=== PATIENT | female | born 1945 | race Hispanic/Latino ===

== ENCOUNTER 2017-11-03 15:05 | Inpatient (IN) | payer MEDICARE ==
[2017-11-03 17:25] LABS: BASO # 0.1 K/uL (0.0-0.2); BASO % 1.2 % (0.0-2.0); EOS # 0.3 K/uL (0.0-0.7); EOS % 2.4 % (0.0-4.0); HEMOGLOBIN 18.9 g/dL (11.0-16.0); LYMPH # 1.8 K/uL (1.0-4.3); LYMPH % 15.2 % (20.0-40.0); MEAN CELL VOLUME 93.8 fL (81.0-99.0); MEAN CORPUSCULAR HEMOGLOBIN 31.9 pg (27.0-31.0); MEAN PLATELET VOLUME 8.8 fL (7.2-11.7); MONO # 0.8 K/uL (0.0-0.8); MONO % 6.3 % (0.0-10.0); NEUT % 74.9 % (50.0-75.0); NRBC % 0.3 % (0.0-2.0); RBC 5.93 Mil/uL (3.80-5.20); RED CELL DISTRIBUTION WIDTH 14.4 % (11.5-14.5)
[2017-11-03 17:33] LABS: INR 1.1; PROTHROMBIN TIME 13.1 SECONDS (9.7-12.2)
[2017-11-03 17:37] LABS: ALB/GLOB RATIO 1.1 (1.0-2.1); ALT/SGPT 20 U/L (9-52); AST/SGOT 18 U/L (14-36); BLOOD UREA NITROGEN 24 mg/dL (7-17); CALCIUM 9.9 mg/dl (8.6-10.4); GFR AFRICAN-AMERICAN > 60; GFR NON-AFRICAN AMERICAN > 60
[2017-11-03] MEDS ORDERED: Heparin25000 units/250ml 1/2NS 25,000 UNITS/250 ML BAG IV ONE ×2 (17:54→18:15)
[2017-11-03] MEDS ORDERED: Iodixanol 320 mg/ml 150 ml Bottle IV ONE (18:18)
--- NOTE | 2017-11-03 18:36 | CP.PCM.HP ---
History of Present Illness - History of Present Illness History of Present Illness: CC:left foot pain 72 year old female with a past medical history of thrombocytosis and hypertension who comes in after being referred from Dr. Pierre. The patient reports left foot gangrene that was recently discovered in her doctor's office. The patient states that she has had an ulcer on the foot for the past two years that was caused by her not wearing her compression stockings and her bare foot rubbing against the shoe and causing a break in the skin. The patient states she tried to treat it with Neosporin three times a day but it didn't improve the symptoms. The patient reports pain in conjunction with the gangrene. She recently began taking Oxycodone which has improved the pain. She denies any chest pain, headaches, shortness of breath, nausea, vomiting, changes in vision, polyuria, polydipsia, syncopal episodes, palpitations, or any other complaints. Fishing Manager: Dr. Emmanuel PMD: In between at the moment Past medical history: Thrombocytosis, hypertension Medications: Goes to [facility] in [place]. Follow up and confirm. Past surgical history: Tonsillectomy, Right eye cataract Allergies: Denies Social: Social drinker. Henrry smoking or illicit drug use. Lives alone Full Code Has a living will. Present on Admission - Present on Admission Any Indicators Present on Admission: No Review of Systems - Constitutional Constitutional: absent: Chills, Daytime Sleepiness, Headache, Snoring, Weakness - EENT Eyes: absent: Blurred Vision, Discharge, Dry Eye, Sees Flashes, Loss of Vision Ears: absent: Ear Discharge, Dizziness Nose/Mouth/Throat: absent: Nasal Congestion, Nasal Discharge, Nose Pain, Dysphagia, Halitosis - Cardiovascular Cardiovascular: absent: Chest Pain, Claudication, Irregular Heart Rhythm, Pain Radiating to Arm/Neck/Jaw, Leg Edema, Paroxysmal Nocturnal Dyspnea, Slow Heart Rate, Syncope - Respiratory Respiratory: absent: Dyspnea, Hemoptysis, Stridor - Gastrointestinal Gastrointestinal: absent: Belching, Change in Stool Character, Cramping, Dyspepsia, Excessive Flatus, Fecal Incontinence, Loose Stools, Melena, Nausea, Vomiting, Other - Genitourinary Genitourinary: absent: Change in Urinary Stream, Difficulty Urinating, Nocturia , Urinary Urgency, Bladder Distension - Musculoskeletal Musculoskeletal: absent: Arthralgias, Joint Swelling, Limited Range of Motion, Muscle Weakness, Myalgias, Stiffness, Tingling - Integumentary Integumentary: Skin Pain, Sores, Wounds. absent: Bleeding Lesions, Changing Lesions, Lesions, Pruritus, Striae, Swelling Additional comments: Lower left foot gangrene. - Neurological Neurological: absent: Abnormal Hearing, Burning Sensations, Dizziness, Numbness , Lack of Coordination, Radicular Pain, Tremor, Vertigo - Psychiatric Psychiatric: absent: Abnormal Sleep Pattern, Behavioral Changes, Hopelessness, Panic Attacks, Tactile Hallucinations - Endocrine Endocrine: absent: Change in Body Appearance, Increase in Ring/Shoe/Hat Size, Polydipsia, Polyphagia, Polyuria - Hematologic/Lymphatic Additional comments: lower left extremiety gangrene extending from the great hallux to the fourth toe. Past Patient History - Infectious Disease Hx of Infectious Diseases: None - Past Social History Smoking Status: Never Smoked - CARDIAC Hx Hypertension: Yes - HEMATOLOGICAL/ONCOLOGICAL Other/Comment: Hx of elevated platelet count. - PSYCHIATRIC Hx Substance Use: No - SURGICAL HISTORY Hx Surgeries: Yes Hx Cataract Extraction: Yes Hx Tonsillectomy: Yes - ANESTHESIA Hx Anesthesia: Yes Hx Anesthesia Reactions: No Hx Malignant Hyperthermia: No Meds Allergies/Adverse Reactions: Allergies Allergy/AdvReac Type Severity Reaction Status Date / Time No Known Allergies Allergy Verified 11/03/17 15:26 Physical Exam - Head Exam Head Exam: ATRAUMATIC, NORMAL INSPECTION, NORMOCEPHALIC - Eye Exam Eye Exam: EOMI, Normal appearance, PERRL. absent: Periorbital tenderness Pupil Exam: NORMAL ACCOMODATION, PERRL. absent: Irregular, Unequal - ENT Exam ENT Exam: Mucous Membranes Moist, Normal Exam, Normal Oropharynx. absent: TM's Normal Bilaterally - Neck Exam Neck exam: Positive for: Normal Inspection. Negative for: Lymphadenopathy, Thyromegaly - Respiratory Exam Respiratory Exam: Clear to Auscultation Bilateral, NORMAL BREATHING PATTERN. absent: Chest Wall Tenderness, Prolonged Expiratory Phase, Respiratory Distress - Cardiovascular Exam Cardiovascular Exam: REGULAR RHYTHM, RRR, +S1, +S2. absent: Rubs - GI/Abdominal Exam GI & Abdominal Exam: Normal Bowel Sounds, Soft. absent: Distended, Hypoactive Bowel Sounds, Organomegaly, Tenderness - Extremities Exam Extremities exam: Negative for: joint swelling, pedal edema - Neurological Exam Neurological exam: Alert, CN II-XII Intact, Oriented x3 - Psychiatric Exam Psychiatric exam: Normal Affect, Normal Mood - Skin Additional comments: lower left extremiety gangrene extending from the great hallux to the fourth toe. Results - Vital Signs Recent Vital Signs: Last Vital Signs Temp 97.7 F 11/03/17 18:01 Pulse 78 11/03/17 18:01 Resp 18 11/03/17 18:01 BP 225/108 H 11/03/17 17:45 Pulse Ox 98 11/03/17 18:01 - Labs Result Diagrams: 11/03/17 17:21 11/03/17 17:21 Labs: Laboratory Results - last 24 hr 11/03/17 11/03/17 11/03/17 17:21 17:21 17:21 WBC 12.0 H RBC 5.93 H Hgb 18.9 H Hct 55.6 H MCV 93.8 MCH 31.9 H MCHC 34.0 RDW 14.4 Plt Count 850 H MPV 8.8 Neut % (Auto) 74.9 Lymph % (Auto) 15.2 L [place] % (Auto) 6.3 Eos % (Auto) 2.4 Baso % (Auto) 1.2 Neut # (Auto) 9.0 H Lymph # (Auto) 1.8 [place] # (Auto) 0.8 Eos # (Auto) 0.3 Baso # (Auto) 0.1 Differential Comment PT 13.1 H INR 1.1 APTT 37 H Sodium 139 Potassium 3.6 Chloride 98 Carbon Dioxide 30 Anion Gap 14 BUN 24 H Creatinine 0.9 Est GFR ( Amer) > 60 Est GFR (Non-Af Amer) > 60 Random Glucose 98 Calcium 9.9 Total Bilirubin 1.1 AST 18 ALT 20 Alkaline Phosphatase 81 Total Protein 7.5 Albumin 4.0 Globulin 3.6 Albumin/Globulin Ratio 1.1 Assessment & Plan - Assessment and Plan (Free Text) Assessment: 72 year old female with a past medical history of thrombocytosis and hypertension who is admitted for gangrene of the left foot. Plan: 1.Gangrene of the left foot -Patient seen at Dr. Pierre's and Cholo's office earlier today were it was cleaned and soaked and re-bandaged. She was referred to the emergency room due to the severity of her foot. -Lower extremity duplex showed occlusion of the left popliteal and anterior tibial -Heparin Bolus given in the emergency department. Heparin drip started in the emergency department afterwards. -Dr. Pierre consulted. Will f/u with rec's 2.Hypertensive urgency -BP upon admission 225/108. -Patient normal range of SBP is in the 160's. Patient is asymptomatic upon examination. -Clonindine .2mg given in the Emergency room. -Cardizem 30mg q8 started -Holding parameters: BP less than 140 -Heart healthy diet (2g Na restriction) 3.Thrombocytosis -850 upon admission. -Consider Data Programmer consult. Patient states she hasn't been worked up in the past for the cause. PPX -Pepcid 20mg BID
--- NOTE | 2017-11-03 19:13 | C.PDOC ---
History Of Present Illness 72 y/o female, with history of HTN and thrombocytosis, presents to the ER after being referred by for admission of left foot ulcer. Patient has a non-healing ulcer over the past several weeks.Patient has good compliance with his outpatient medications. Patient has an elevated blood pressure in the ER. She denies having pain, fever, and other complaints. Chief Complaint (Nursing): Abnormal Skin Integrity History Per: Patient History/Exam Limitations: no limitations Onset/Duration Of Symptoms: Days Current Symptoms Are (Timing): Still Present Severity: Moderate Past Medical History Reviewed: Historical Data, Nursing Documentation, Vital Signs Vital Signs: Last Vital Signs Temp 97.8 F 11/03/17 23:15 Pulse 57 L 11/04/17 04:00 Resp 20 11/03/17 23:15 BP 162/90 H 11/04/17 00:40 Pulse Ox 95 11/03/17 23:15 - Medical History PMH: HTN Surgical History: Tonsillectomy Family History: States: No Known Family Hx - Social History Hx Alcohol Use: No Hx Substance Use: No - Immunization History Hx Tetanus Toxoid Vaccination: No Hx Influenza Vaccination: No Hx Pneumococcal Vaccination: No Review Of Systems Except As Marked, All Systems Reviewed And Found Negative. Constitutional: Negative for: Fever, Chills Skin: Positive for: Other (non-healing ulcer in left foot) Physical Exam - Physical Exam Appears: Non-toxic, No Acute Distress Skin: Normal Color, Warm, Other (LLE:foot and ankle wrapped with chronically venous stasis changes bilaterally) Head: Atraumatic, Normacephalic Eye(s): bilateral: Normal Inspection Nose: Normal Oral Mucosa: Moist Neck: Supple Chest: Symmetrical Cardiovascular: Rhythm Regular Respiratory: Normal Breath Sounds, No Accessory Muscle Use, No Rales, No Rhonchi , No Wheezing Extremity: Normal ROM, Other Neurological/Psych: Oriented x3, Normal Speech, Normal Motor, Normal Sensation ED Course And Treatment - Laboratory Results Result Diagrams: 11/03/17 17:21 11/03/17 17:21 O2 Sat by Pulse Oximetry: 95 (RA) Pulse Ox Interpretation: Normal Progress Note: Case discussed with who is aware of the US report. He reccomends that the patient be given Heparin therapy and be admitted.Case also discussed with who reviewed case including HTN treatment. Patient to be given PO meds only to maximize blood flow to lower extremities. 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 I have reviewed the chart and agree that the record accurately reflects my personal performance of the history, physical exam, medical decision making, and the department course for this patient. I have also personally directed, reviewed, and agree with the discharge instructions and disposition.
--- NOTE | 2017-11-03 21:12 | CT ---
EXAM: CT Angiography Abdomen and Pelvis With Runoff to the Lower Extremities With Intravenous Contrast EXAM DATE/TIME: Exam ordered 11/03/2017 3:49 PM CLINICAL HISTORY: 72 years old, female; Signs and symptoms; Other: Left foot gangrene TECHNIQUE: Axial computed tomographic angiography images of the abdomen, pelvis and lower extremities with intravenous contrast using CT angiography protocol. All CT scans at this facility use one or more dose reduction techniques, viz.: automated exposure control; ma/kV adjustment per patient size (including targeted exams where dose is matched to indication; i.e. head); or iterative reconstruction technique. MIP reconstructed images were created and reviewed. Coronal and sagittal reformatted images were created and reviewed. CONTRAST: 150 mL of visipaque 300 administered intravenously. COMPARISON: No relevant prior studies available. FINDINGS: Lower thorax: A 1.2 cm pleural-based nodule is noted in the posterior basal segment of the right lower lobe (series 2 image 7). Thin pleural-based reticular opacities in the left lower lobe suggests scar. There is a granuloma in the left lower lobe (series 2 image 17). The heart is mildly enlarged. VASCULATURE: Aorta: There is aneurysmal dilatation of the infrarenal abdominal aorta with a maximum diameter of 2.4 cm.. Atherosclerotic changes noted of the abdominal aorta. No dissection. Celiac trunk and mesenteric arteries: No acute findings. No occlusion or significant stenosis. Renal arteries: Calcified plaque is noted at the origin of the renal arteries bilaterally. No occlusion or significant stenosis. Right iliac arteries: The left and right common iliac arteries measure 1.3 cm and 1.4 cm respectively in maximum diameter. No occlusion or significant stenosis. Right femoral/popliteal arteries: Atherosclerotic changes noted of the right superficial femoral artery. Distally there is a 50-60% stenosis present. 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 The popliteal occludes at the level of the knee. Right calf/foot arteries: The right anterior tibial artery occludes at the origin. The right tibioperoneal trunk is a markedly narrowed vessel that I recanalizes via geniculate collaterals. The peroneal artery occludes mid calf. The posterior tibial artery is seen as a threadlike vessel which occludes in the proximal lower leg and appears to reconstitute in the region of the mid calf crosses the ankle. Left iliac arteries: No acute findings. No occlusion or significant stenosis. Left femoral/popliteal arteries: Approximate 30% narrowing is noted of the left common femoral artery. Atherosclerotic changes noted of the left superficial femoral artery. Multifocal short segment stenoses are noted in the proximal one half of the left SFA.. Mid calf there is a high grade stenosis estimated to be approximately 50% of the superficial femoral artery. A second stenosis distally estimated to be at least to 80% is noted.. The popliteal artery is occluded on the left. Left calf/foot arteries: The SAMANTHA is occluded. The posterior tibial artery recanalizes via collaterals. It terminates at the level of the ankle. Small arterial collaterals are noted on the dorsum of the ankle and foot. Other arteries: Calcified plaque is noted at the origin of the celiac axis and superior mesenteric artery. ABDOMEN: Liver: the liver measures 18.5 cm in craniocaudal span. Gallbladder and bile ducts: Unremarkable. No calcified stones. No ductal dilation. Pancreas: Unremarkable. No ductal dilation. No mass. Spleen: The spleen measures 12.2 cm in craniocaudal span . A peripheral wedge-shaped area of low density is noted within the spleen inferiorly. Adrenals: Unremarkable. No mass. Kidneys and ureters: No mass. No hydronephrosis. Stomach and bowel: There are scattered colonic diverticula. No obstruction. No mucosal thickening. Appendix: No findings to suggest acute appendicitis. PELVIS: Bladder: Unremarkable. No mass. Reproductive: Unremarkable as visualized. ABDOMEN, PELVIS and LOWER EXTREMITIES: Intraperitoneal space: Unremarkable. No significant fluid collection. No free air. Bones/joints: Degenerative changes are noted of both patellofemoral joints. Degenerative changes are noted of both hips. Degenerative changes are noted of the thoracolumbar spine. No acute fracture. No dislocation. Soft tissues: Marked soft tissue edema is noted in the right lower leg. Large collateral vessels are noted within the subcutaneous f one-vessel runoff at of both lower extremities, left greater than right. There is mild anasarca.There is a small umbilical hernia containing fat. Lymph nodes: Unremarkable. No enlarged lymph nodes. IMPRESSION: 1. Moderate atherosclerotic disease of the right leg with 50-60% stenosis of the distal SFA. The popliteal artery occludes behind the knee. Intermittent reconstitution of the peroneal artery and posterior tibial artery with the posterior tibial artery crossing the ankle 2. Multifocal short segment stenoses of the left SFA with occlusion of the distal SFA. Intermittent reconstitution of the posterior tibial artery mid calf to the level of the ankle. Small arterial collaterals noted on the dorsum of the foot. 3. Mild splenomegaly with splenic infarct. 4. Scattered colonic diverticula. 5. Pleural-based nodular density in the right lower lobe. For low-risk or high-risk patients consider a follow-up chest CT at 3 months. If unchanged consider an additional follow-up CT at 18-24 months. Alternatively (or additionally) PET/CT or tissue sampling could be performed. 6. Hepatomegaly
--- NOTE | 2017-11-03 21:35 | CP.PCM.CON ---
History of Present Illness - History of Present Illness History of Present Illness: Vascular surgery consult note for Dr. Abdifatah Khan, PGY-1 Pt S & E at bedside. 72F w/PMH sig for HTN, thrombocytosis consulted for Left lower extremity occlusion. Pt reports having chronic, recurrent wounds of left foot x 2 years, was being managed by podiatry without resolution. Pt recommended to see vascular surgeon - Dr Rosio méndez/fidencio today for necrotic wound of left distal foot with recommendations for hospitalization and imaging evaluations. Pt reports chronic, intermittent, non radiating left foot pain, worsened by walking, alleviated by pain medication. Denies numbness/tingling of extremities, weakness of foot, F & C, N & V, changes in bowel or bladder habits, other complaints. Pt's cousin at bedside reports that pt is non compliant with HTN medication. PMH: HTN, thrombocytosis PSH: Tonsillectomy (age 4), R eye cataract sx (10/2017) All:NKDA SH: Admits to ETOH use- 2 glasses of wine 4-5x weekly, denies tobacco use, illicit drug use; ambulates with cane Out pt podiatry- Dr. Emmanuel, Dr. tucker Outpatient analyst programmer: Dr. Krishna Review of Systems - Review of Systems All systems: reviewed and no additional remarkable complaints except - Constitutional Constitutional: absent: Chills, Fever, Headache - EENT Eyes: absent: Change in Vision Ears: absent: Dizziness Nose/Mouth/Throat: absent: Sore Throat - Cardiovascular Cardiovascular: absent: Chest Pain, Leg Edema, Palpitations - Respiratory Respiratory: absent: Cough - Gastrointestinal Gastrointestinal: absent: Abdominal Pain, Constipation, Diarrhea, Nausea, Vomiting - Genitourinary Genitourinary: absent: Change in Urinary Stream - Musculoskeletal Musculoskeletal: absent: Muscle Weakness, Numbness, Radiating Pain into Limb, Tingling - Integumentary Integumentary: Non-Healing Lesions (left foot) - Neurological Neurological: absent: Dizziness, Weakness - Psychiatric Psychiatric: absent: Change in Appetite Past Patient History - Infectious Disease Hx of Infectious Diseases: None - Past Social History Smoking Status: Never Smoked - CARDIAC Hx Hypertension: Yes - HEMATOLOGICAL/ONCOLOGICAL Other/Comment: Hx of elevated platelet count. - PSYCHIATRIC Hx Substance Use: No - SURGICAL HISTORY Hx Tonsillectomy: Yes - ANESTHESIA Hx Anesthesia: Yes Hx Anesthesia Reactions: No Hx Malignant Hyperthermia: No Meds Allergies/Adverse Reactions: Allergies Allergy/AdvReac Type Severity Reaction Status Date / Time No Known Allergies Allergy Verified 11/03/17 15:26 - Medications Medications: Current Medications Diltiazem HCl (Cardizem) 30 mg PO Q8 JUNE Docusate Sodium (Colace) 100 mg PO DAILY JUNE Famotidine (Pepcid) 20 mg PO BID JUNE Heparin Sodium/Sodium Chloride (Heparin 51102 Units/250ml 1/2 Normal Saline) 25 ,000 units in 250 mls @ 13.472 mls/hr IV .[id number] ONE; 18 UNIT/KG/HR PRN Reason: Protocol Stop: 11/04/17 12:48 Last Admin: 11/03/17 19:34 Dose: 18 unit/kg/hr, 13.472 mls/hr Oxycodone/Acetaminophen (Percocet 5/325 Mg Tab) 1 tab PO Q4H PRN PRN Reason: Pain, moderate (4-7) Stop: 11/06/17 21:24 Physical Exam - Constitutional Appears: Non-toxic, No Acute Distress - Head Exam Head Exam: ATRAUMATIC, NORMAL INSPECTION, NORMOCEPHALIC - Eye Exam Eye Exam: EOMI, Normal appearance - ENT Exam ENT Exam: Mucous Membranes Moist, Normal Exam - Neck Exam Neck exam: Positive for: Full Rom, Normal Inspection - Respiratory Exam Respiratory Exam: Clear to Auscultation Bilateral, NORMAL BREATHING PATTERN - Cardiovascular Exam Cardiovascular Exam: REGULAR RHYTHM, +S1, +S2 - GI/Abdominal Exam GI & Abdominal Exam: Normal Bowel Sounds, Soft. absent: Tenderness - Extremities Exam Extremities exam: Negative for: normal inspection, pedal edema, tenderness Additional comments: Left foot with black skin of 1st-4th phalanges, dressing in place- clean/dry/ intact - Neurological Exam Neurological exam: Alert, CN II-XII Intact, Oriented x3 - Psychiatric Exam Psychiatric exam: Normal Affect, Normal Mood - Skin Skin Exam: Dry, Intact, Normal Color, Warm Additional comments: excluding distal left foot, please see foot exam Results - Vital Signs Recent Vital Signs: Last Vital Signs Temp 98.6 F 11/03/17 18:59 Pulse 65 11/03/17 19:38 Resp 19 11/03/17 19:38 BP 179/84 H 11/03/17 19:38 Pulse Ox 95 11/03/17 20:25 - Labs Result Diagrams: 11/03/17 17:21 11/03/17 17:21 Labs: Laboratory Results - last 24 hr 11/03/17 11/03/17 11/03/17 17:21 17:21 17:21 WBC 12.0 H RBC 5.93 H Hgb 18.9 H Hct 55.6 H MCV 93.8 MCH 31.9 H MCHC 34.0 RDW 14.4 Plt Count 850 H MPV 8.8 Neut % (Auto) 74.9 Lymph % (Auto) 15.2 L [place] % (Auto) 6.3 Eos % (Auto) 2.4 Baso % (Auto) 1.2 Neut # (Auto) 9.0 H Lymph # (Auto) 1.8 [place] # (Auto) 0.8 Eos # (Auto) 0.3 Baso # (Auto) 0.1 Differential Comment PT 13.1 H INR 1.1 APTT 37 H Sodium 139 Potassium 3.6 Chloride 98 Carbon Dioxide 30 Anion Gap 14 BUN 24 H Creatinine 0.9 Est GFR ( Amer) > 60 Est GFR (Non-Af Amer) > 60 Random Glucose 98 Hemoglobin A1c Calcium 9.9 Total Bilirubin 1.1 AST 18 ALT 20 Alkaline Phosphatase 81 Total Protein 7.5 Albumin 4.0 Globulin 3.6 Albumin/Globulin Ratio 1.1 11/03/17 17:21 WBC RBC Hgb Hct MCV MCH MCHC RDW Plt Count MPV Neut % (Auto) Lymph % (Auto) [place] % (Auto) Eos % (Auto) Baso % (Auto) Neut # (Auto) Lymph # (Auto) [place] # (Auto) Eos # (Auto) Baso # (Auto) Differential Comment PT INR APTT Sodium Potassium Chloride Carbon Dioxide Anion Gap BUN Creatinine Est GFR ( Amer) Est GFR (Non-Af Amer) Random Glucose Hemoglobin A1c 5.2 Calcium Total Bilirubin AST ALT Alkaline Phosphatase Total Protein Albumin Globulin Albumin/Globulin Ratio Assessment & Plan - Assessment and Plan (Free Text) Assessment: 72F w/gangrene of distal left foot and arterial occlusions Plan: On heparin drip CTA of LE IV Abx BP control Pain control Surgical recommendations pending imaging results DW attending Erin, PGY-1 - Date & Time Date: 11/03/17 Time: 21:35
[2017-11-03] MEDS: Oxycodone/Acetaminophen 5/325 mg Tab PO PRN (22:37)
[2017-11-04] MEDS: Oxycodone/Acetaminophen 5/325 mg Tab PO PRN ×4 (06:16→22:06)
--- NOTE | 2017-11-04 06:18 | CP.PCM.PN ---
Subjective - Date & Time of Evaluation Date of Evaluation: 11/04/17 Time of Evaluation: 06:16 - Subjective Subjective: Vascular surgery progress note for Dr. Abdifatah Khan, PGY-1 Pt S & E at bedside. Pt reports feeling cold overnight, denies actual F & C. Reports increased pain of left foot this AM- requesting pain medication. No other complaints at this time. Objective - Vital Signs/Intake and Output Vital Signs (last 24 hours): Temp Pulse Resp BP Pulse Ox 97.8 F 57 L 20 162/90 H 95 11/03/17 23:15 11/04/17 04:00 11/03/17 23:15 11/04/17 00:40 11/03/17 23:15 - Medications Medications: Current Medications Diltiazem HCl (Cardizem) 30 mg PO Q8 [facility] Docusate Sodium (Colace) 100 mg PO DAILY [facility] Famotidine (Pepcid) 20 mg PO BID [facility] Heparin Sodium/Sodium Chloride (Heparin 64083 Units/250ml 1/2 Normal Saline) 25 ,000 units in 250 mls @ 13.472 mls/hr IV .[id number] ONE; 18 UNIT/KG/HR PRN Reason: Protocol Stop: 11/04/17 12:48 Last Admin: 11/03/17 19:34 Dose: 18 unit/kg/hr, 13.472 mls/hr Oxycodone/Acetaminophen (Percocet 5/325 Mg Tab) 1 tab PO Q4H PRN PRN Reason: Pain, moderate (4-7) Stop: 11/06/17 21:24 Last Admin: 11/03/17 22:37 Dose: 1 tab - Labs Labs: 11/03/17 17:21 11/03/17 17:21 PT 13.1 SECONDS (9.7-12.2) H 11/03/17 17:21 INR 1.1 11/03/17 17:21 APTT 37 SECONDS (21-34) H 11/03/17 17:21 - Constitutional Appears: Non-toxic, No Acute Distress - Head Exam Head Exam: ATRAUMATIC, NORMAL INSPECTION, NORMOCEPHALIC - Eye Exam Eye Exam: EOMI, Normal appearance - ENT Exam ENT Exam: Mucous Membranes Moist, Normal Exam - Neck Exam Neck Exam: Full ROM, Normal Inspection - Respiratory Exam Respiratory Exam: NORMAL BREATHING PATTERN - Cardiovascular Exam Cardiovascular Exam: REGULAR RHYTHM, +S1, +S2 - GI/Abdominal Exam GI & Abdominal Exam: Soft. absent: Firm, Guarding, Tenderness - Extremities Exam Extremities Exam: Tenderness (at distal aspect of left foot). 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 Intermittent reconstitution of peroneal A STEAM [employer] MAN -which crosses ankle. Multifocal short segment stenoses of L SFA w/ occlusion of distal SFA. Intermittent reconstitution of STEAM TRAP MAN mid calf to ankle. Small arterial collaterals noted on dorsum of foot. Cont IV Abx Cont BP control Cont Pain control Surgical recommendations pending imaging results/attending kirsty ONOFRE attending Erin, PGY-1
--- NOTE | 2017-11-04 10:21 | CP.PCM.PN ---
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 needs traditional angio and might need bypass surgery if no endovascular Rx( can.t predict without tradiional angio.) Objective - Vital Signs/Intake and Output Vital Signs (last 24 hours): Temp Pulse Resp BP Pulse Ox 98.4 F 66 18 184/87 H 95 11/04/17 08:03 11/04/17 08:03 11/04/17 08:03 11/04/17 08:03 11/04/17 08:03 Intake and Output: 11/04/17 11/04/17 06:59 18:59 Intake Total 138 Balance 138 - Medications Medications: Current Medications Diltiazem HCl (Cardizem) 30 mg PO Q8 [facility] Docusate Sodium (Colace) 100 mg PO DAILY [facility] Famotidine (Pepcid) 20 mg PO BID [facility] Heparin Sodium/Sodium Chloride (Heparin 85782 Units/250ml 1/2 Normal Saline) 25 ,000 units in 250 mls @ 13.472 mls/hr IV .[id number] ONE; 18 UNIT/KG/HR PRN Reason: Protocol Stop: 11/04/17 12:48 Last Admin: 11/03/17 19:34 Dose: 18 unit/kg/hr, 13.472 mls/hr Oxycodone/Acetaminophen (Percocet 5/325 Mg Tab) 1 tab PO Q4H PRN PRN Reason: Pain, moderate (4-7) Stop: 11/06/17 21:24 Last Admin: 11/04/17 06:16 Dose: 1 tab - Labs Labs: 11/03/17 17:21 11/03/17 17:21 PT 13.1 SECONDS (9.7-12.2) H 11/03/17 17:21 INR 1.1 11/03/17 17:21 APTT 37 SECONDS (21-34) H 11/03/17 17:21
[2017-11-04 11:56] LABS: BASO # 0.2 K/uL (0.0-0.2); BASO % 1.3 % (0.0-2.0); EOS # 0.3 K/uL (0.0-0.7); EOS % 2.2 % (0.0-4.0); HEMOGLOBIN 18.4 g/dL (11.0-16.0); LYMPH # 1.4 K/uL (1.0-4.3); LYMPH % 9.7 % (20.0-40.0); MEAN CELL VOLUME 93.8 fL (81.0-99.0); MEAN CORPUSCULAR HEMOGLOBIN 32.5 pg (27.0-31.0); MEAN CORPUSCULAR HGB CONC 34.6 g/dL (33.0-37.0); MEAN PLATELET VOLUME 9.6 fL (7.2-11.7); MONO # 1.1 K/uL (0.0-0.8); MONO % 7.5 % (0.0-10.0); NEUT # 11.4 K/uL (1.8-7.0); NEUT % 79.3 % (50.0-75.0); NRBC % 0.1 % (0.0-2.0); RBC 5.67 Mil/uL (3.80-5.20); WHITE BLOOD COUNT 14.4 K/uL (4.8-10.8)
[2017-11-04 12:10] LABS: PLATELET COUNT 707 K/uL (130-400)
[2017-11-04 12:26] LABS: ALB/GLOB RATIO 1.1 (1.0-2.1); ALBUMIN 3.5 g/dL (3.5-5.0); ALT/SGPT 11 U/L (9-52); AST/SGOT 26 U/L (14-36); BLOOD UREA NITROGEN 19 mg/dL (7-17); CALCIUM 9.4 mg/dl (8.6-10.4); GFR AFRICAN-AMERICAN > 60; GFR NON-AFRICAN AMERICAN > 60
[2017-11-04 12:36] LABS: BANDS 1 % (0-2); LYMPHOCYTE 6 % (20-40); MONOCYTE 4 % (0-10); NEUTROPHIL 89 % (50-75); PLATELET ESTIMATE MARKEDLY INCREASED (NORMAL); TOTAL CELLS COUNTED 100
[2017-11-04 12:37] LABS: LARGE PLATELETS PRESENT
--- NOTE | 2017-11-04 14:01 | CP.PCM.PN ---
Subjective - Date & Time of Evaluation Date of Evaluation: 11/04/17 Time of Evaluation: 14:00 - Subjective Subjective: Medicine progress note for Dr. Gallegos's service Patient was seen and examined at bedside in no acute distress. Patient reports having intermittently in her foot, but pain medication helps. At the time of examination, patient reports having no pain. Patient denies having chest pain, shortness of breath, nausea, vomiting, fevers, and headaches. Objective - Vital Signs/Intake and Output Vital Signs (last 24 hours): Temp Pulse Resp BP Pulse Ox 98.4 F 66 18 184/87 H 95 11/04/17 08:03 11/04/17 08:03 11/04/17 08:03 11/04/17 08:03 11/04/17 08:03 Intake and Output: 11/04/17 11/04/17 06:59 18:59 Intake Total 138 Balance 138 - Medications Medications: Current Medications Aspirin (Aspirin) 325 mg PO DAILY [facility] Diltiazem HCl (Cardizem) 30 mg PO Q8 [facility] Last Admin: 11/04/17 11:26 Dose: 30 mg Docusate Sodium (Colace) 100 mg PO DAILY [facility] Last Admin: 11/04/17 11:25 Dose: 100 mg Famotidine (Pepcid) 20 mg PO BID [facility] Last Admin: 11/04/17 11:31 Dose: 20 mg Oxycodone/Acetaminophen (Percocet 5/325 Mg Tab) 1 tab PO Q4H PRN PRN Reason: Pain, moderate (4-7) Stop: 11/06/17 21:24 Last Admin: 11/04/17 11:25 Dose: 1 tab - Labs Labs: 11/04/17 11:45 11/04/17 11:45 PT 13.1 SECONDS (9.7-12.2) H 11/03/17 17:21 INR 1.1 11/03/17 17:21 APTT 76 SECONDS (21-34) H D 11/04/17 11:45 - Constitutional Appears: No Acute Distress - Head Exam Head Exam: ATRAUMATIC, NORMAL INSPECTION - Eye Exam Eye Exam: EOMI, Normal appearance - ENT Exam ENT Exam: Mucous Membranes Moist - Respiratory Exam Respiratory Exam: Clear to Ausculation Bilateral, NORMAL BREATHING PATTERN. absent: Rales, Rhonchi, Wheezes, Respiratory Distress - Cardiovascular Exam Cardiovascular Exam: REGULAR RHYTHM, +S1, +S2 - GI/Abdominal Exam GI & Abdominal Exam: Soft, Normal Bowel Sounds. absent: Distended, Firm, Tenderness - Extremities Exam Extremities Exam: absent: Normal Inspection Additional comments: left LE- no palpable pulses; gangrene on digits 1-4 of left foot; painful to palpation. right LE- no palpable pulses, sensation intact; - Neurological Exam Neurological Exam: Alert, Awake, Oriented x3 - Psychiatric Exam Psychiatric exam: Normal Affect, Normal Mood - Skin Skin Exam: Dry, Intact, Warm Assessment and Plan - Assessment and Plan (Free Text) Plan: 72 year old female with a past medical history of thrombocytosis and hypertension who is admitted for gangrene of the left foot. Plan: 1.Gangrene of the left foot * Patient seen at Dr. Pierre's and Cholo's office on 11/03/17 were it was cleaned, soaked and re-bandaged. She was referred to the emergency room due to the severity. * Lower extremity duplex showed occlusion of the left popliteal and anterior tibial * Heparin Bolus given in the emergency department. Heparin drip started in the emergency department afterwards. * Heparin drip continued * Dr. Pierre consulted. Will f/u with rec's * multiple infra geniculate occlusions with left foot gangrene * needs traditional angio and might need bypass surgery 2.Hypertensive urgency * BP upon admission 225/108. * Patient normal range of SBP is in the 160's. Patient is asymptomatic upon examination. * Clonindine .2mg given in the Emergency room. * Cardizem 30mg q8 started * Holding parameters: BP less than 140 * Heart healthy diet (2g Na restriction) 3.Thrombocytosis * 850 upon admission. * Consider Director Of Marketing [employer] consult. Patient states she hasn't been worked up in the past for the cause. Prophylaxis: * Pepcid 20mg BID * NO SCDs * Heparin Drip * Heart Healthy diet ([place]PO@[place] on 11/05/17 for procedure on Monday)
[2017-11-04] MEDS: Heparin25000 units/250ml 1/2NS 25,000 UNITS/250 ML BAG IV PRN (18:14)
[2017-11-05] MEDS: Oxycodone/Acetaminophen 5/325 mg Tab PO PRN ×2 (06:10→14:33)
[2017-11-05 09:04] LABS: BASO # 0.1 K/uL (0.0-0.2); BASO % 0.7 % (0.0-2.0); EOS # 0.3 K/uL (0.0-0.7); EOS % 2.5 % (0.0-4.0); HEMOGLOBIN 17.9 g/dL (11.0-16.0); LYMPH # 1.3 K/uL (1.0-4.3); LYMPH % 10.7 % (20.0-40.0); MEAN CELL VOLUME 94.3 fL (81.0-99.0); MEAN CORPUSCULAR HEMOGLOBIN 32.3 pg (27.0-31.0); MEAN CORPUSCULAR HGB CONC 34.3 g/dL (33.0-37.0); MEAN PLATELET VOLUME 9.3 fL (7.2-11.7); MONO # 0.9 K/uL (0.0-0.8); MONO % 7.6 % (0.0-10.0); NEUT # 9.5 K/uL (1.8-7.0); NEUT % 78.5 % (50.0-75.0); NRBC % 0.1 % (0.0-2.0); RBC 5.54 Mil/uL (3.80-5.20); RED CELL DISTRIBUTION WIDTH 14.2 % (11.5-14.5)
--- NOTE | 2017-11-05 09:11 | CP.PCM.PN ---
Subjective - Date & Time of Evaluation Date of Evaluation: 11/05/17 Time of Evaluation: 07:15 - Subjective Subjective: Vascular Surgery Dr. Pierre Pt S&E @bedside. NAEO. pt sleeping comfortably on rounds. Objective - Vital Signs/Intake and Output Vital Signs (last 24 hours): Temp Pulse Resp BP Pulse Ox 98.0 F 72 18 186/81 H 96 11/05/17 08:36 11/05/17 08:36 11/05/17 08:36 11/05/17 08:36 11/05/17 08:36 Intake and Output: 11/05/17 11/05/17 06:59 18:59 Intake Total 724 Balance 724 - Medications Medications: Current Medications Aspirin (Aspirin) 325 mg PO DAILY [facility] Diltiazem HCl (Cardizem) 30 mg PO Q8 [facility] Last Admin: 11/05/17 06:11 Dose: 30 mg Docusate Sodium (Colace) 100 mg PO DAILY [facility] Last Admin: 11/04/17 11:25 Dose: 100 mg Famotidine (Pepcid) 20 mg PO BID [facility] Last Admin: 11/04/17 18:25 Dose: 20 mg Heparin Sodium/Sodium Chloride (Heparin 81981 Units/250ml 1/2 Normal Saline) 25 ,000 units in 250 mls @ 13.798 mls/hr IV .Q18H8M PRN; Protocol; 18 UNITS/KG/HR PRN Reason: PROTOCOL Last Admin: 11/04/17 18:14 Dose: 18 units/kg/hr, 13.798 mls/hr Oxycodone/Acetaminophen (Percocet 5/325 Mg Tab) 1 tab PO Q4H PRN PRN Reason: Pain, moderate (4-7) Stop: 11/06/17 21:24 Last Admin: 11/05/17 06:10 Dose: 1 tab - Labs Labs: 11/04/17 11:45 11/04/17 11:45 PT 13.1 SECONDS (9.7-12.2) H 11/03/17 17:21 INR 1.1 11/03/17 17:21 APTT 76 SECONDS (21-34) H D 11/04/17 11:45 - Constitutional Appears: Non-toxic, No Acute Distress - Head Exam Head Exam: NORMAL INSPECTION - Eye Exam Eye Exam: Normal appearance - ENT Exam ENT Exam: Mucous Membranes Moist - Respiratory Exam Respiratory Exam: NORMAL BREATHING PATTERN. absent: Accessory Muscle Use, Respiratory Distress - GI/Abdominal Exam GI & Abdominal Exam: absent: Distended - Extremities Exam Additional comments: L foot dressing c/d/i - Skin Skin Exam: Dry, Warm Assessment and Plan - Assessment and Plan (Free Text) Assessment: 72 y/o F w/ gangrene of distal left foot and arterial occlusions - Cont heparin drip - Cont IV Abx - cont pain management - will need traditional angio - possible Bypass if no endovascular Tx available - cont medical management Pt discussed w/ Dr. Gabby Jimenez DO PGY2
[2017-11-05 09:22] LABS: ALB/GLOB RATIO 1.1 (1.0-2.1); ALBUMIN 3.4 g/dL (3.5-5.0); ALT/SGPT 18 U/L (9-52); AST/SGOT 21 U/L (14-36); BLOOD UREA NITROGEN 17 mg/dL (7-17); CALCIUM 8.9 mg/dl (8.6-10.4); GFR AFRICAN-AMERICAN > 60; GFR NON-AFRICAN AMERICAN > 60
--- NOTE | 2017-11-05 09:57 | CP.PCM.PN ---
Subjective - Date & Time of Evaluation Date of Evaluation: 11/05/17 Time of Evaluation: 09:57 - Subjective Subjective: Medicine progress note for Dr. Gallegos's service Patient was seen and examined at bedside in no acute distress. Patient reports having minimal pain in her foot at the time; She says she requests pain medication as needed for her foot pain. Patient denies chest pain, shortness of breath, nausea, vomiting, fevers, headache, abdominal pain. Objective - Vital Signs/Intake and Output Vital Signs (last 24 hours): Temp Pulse Resp BP Pulse Ox 98.0 F 72 18 186/81 H 96 11/05/17 08:36 11/05/17 08:36 11/05/17 08:36 11/05/17 08:36 11/05/17 08:36 Intake and Output: 11/05/17 11/05/17 06:59 18:59 Intake Total 724 Balance 724 - Medications Medications: Current Medications Aspirin (Aspirin) 325 mg PO DAILY [facility] Diltiazem HCl (Cardizem) 30 mg PO Q8 [facility] Last Admin: 11/05/17 06:11 Dose: 30 mg Docusate Sodium (Colace) 100 mg PO DAILY [facility] Last Admin: 11/04/17 11:25 Dose: 100 mg Famotidine (Pepcid) 20 mg PO BID [facility] Last Admin: 11/04/17 18:25 Dose: 20 mg Heparin Sodium/Sodium Chloride (Heparin 58316 Units/250ml 1/2 Normal Saline) 25 ,000 units in 250 mls @ 13.798 mls/hr IV .Q18H8M PRN; Protocol; 18 UNITS/KG/HR PRN Reason: PROTOCOL Last Admin: 11/04/17 18:14 Dose: 18 units/kg/hr, 13.798 mls/hr Oxycodone/Acetaminophen (Percocet 5/325 Mg Tab) 1 tab PO Q4H PRN PRN Reason: Pain, moderate (4-7) Stop: 11/06/17 21:24 Last Admin: 11/05/17 06:10 Dose: 1 tab - Labs Labs: 11/05/17 08:43 11/05/17 08:43 PT 13.1 SECONDS (9.7-12.2) H 11/03/17 17:21 INR 1.1 11/03/17 17:21 APTT 57 SECONDS (21-34) H D 11/05/17 08:45 - Additional Findings Additional findings: - Constitutional Appears: No Acute Distress - Head Exam Head Exam: ATRAUMATIC, NORMAL INSPECTION - Eye Exam Eye Exam: EOMI, Normal appearance - ENT Exam ENT Exam: Mucous Membranes Moist - Respiratory Exam Respiratory Exam: Clear to Ausculation Bilateral, NORMAL BREATHING PATTERN. absent: Rales, Rhonchi, Wheezes, Respiratory Distress - Cardiovascular Exam Cardiovascular Exam: REGULAR RHYTHM, +S1, +S2 - GI/Abdominal Exam GI & Abdominal Exam: Soft, Normal Bowel Sounds. absent: Distended, Firm, Tenderness - Extremities Exam Extremities Exam: absent: Normal Inspection Additional comments: left LE- no palpable pulses; gangrene on digits 1-4 of left foot; painful to palpation. right LE- no palpable pulses, sensation intact; - Neurological Exam Neurological Exam: Alert, Awake, Oriented x3 - Psychiatric Exam Psychiatric exam: Normal Affect, Normal Mood - Skin Skin Exam: Dry, Intact, Warm Assessment and Plan - Assessment and Plan (Free Text) Plan: 72 year old female with a past medical history of thrombocytosis and hypertension who is admitted for gangrene of the left foot. Plan: 1.Gangrene of the left foot * Patient seen at Dr. Pierre's and Cholo's office on 11/03/17 were it was cleaned, soaked and re-bandaged. She was referred to the emergency room due to the severity. * Lower extremity duplex showed occlusion of the left popliteal and anterior tibial * Heparin Bolus given in the emergency department. Heparin drip started in the emergency department afterwards. * Heparin drip continued * Percocet prn for pain * Dr. Pierre consulted. Will f/u with rec's * multiple infra geniculate occlusions with left foot gangrene * needs traditional angio and might need bypass surgery 2.Hypertensive urgency * BP upon admission 225/108. * Patient normal range of SBP is in the 160's. Patient is asymptomatic upon examination. * Clonindine .2mg given in the Emergency room. * Cardizem 30mg q8 started * Holding parameters: BP less than 140 * Heart healthy diet (2g Na restriction) * Cardiology consulted, Dr. Gan; help appreciated * Echo: f/u results 3.Thrombocytosis * 850 upon admission; trending down * Junior [employer] Math Teacher consulted, Dr. Aguilar; help appreciated Prophylaxis: * Pepcid 20mg BID * NO SCDs * Heparin Drip * Heart Healthy diet (NPO@[place] on 11/05/17 for procedure on Monday) Discussed with Dr. Gallegos
[2017-11-05] MEDS: Heparin25000 units/250ml 1/2NS 25,000 UNITS/250 ML BAG IV PRN (18:30)
--- NOTE | 2017-11-06 00:39 | CP.PCM.CON ---
History of Present Illness - History of Present Illness History of Present Illness: Reason for consult: pre-op cardiac evaluation HPI: 72 y/o non-diabetic woman with hx of Polycythemia vera admitted with 2 month hx of worsening left foot ulcer which progress to full-blown gangrene of left foot. Pt denied any chest pain, sob or palpitations. She srinivasan no hx of smoking, drinking or illicit drug use. EKG revealed NSR w/ ns st t changes. Hemoglobin 17.9 Platelet 685K Review of Systems - EENT Eyes: Blurred Vision Nose/Mouth/Throat: absent: Epistaxis, Nasal Discharge, Neck Mass - Cardiovascular Cardiovascular: absent: Chest Pain, Edema, Irregular Heart Rhythm - Respiratory Respiratory: absent: Cough, Dyspnea - Gastrointestinal Gastrointestinal: absent: Abdominal Pain - Musculoskeletal Additional comments: left foot gangrene - Integumentary Integumentary: Skin Ulcer Past Patient History - Infectious Disease Hx of Infectious Diseases: None - Past Medical History & Family History Past Medical History?: Yes - Past Social History Smoking Status: Never Smoked - CARDIAC Hx Hypertension: Yes - HEMATOLOGICAL/ONCOLOGICAL Hx Blood Disorders: Yes Other/Comment: Hx of elevated platelet count. - MUSCULOSKELETAL/RHEUMATOLOGICAL Hx Falls: No - PSYCHIATRIC Hx Substance Use: No - SURGICAL HISTORY Hx Tonsillectomy: Yes - ANESTHESIA Hx Anesthesia: Yes Hx Anesthesia Reactions: No Hx Malignant Hyperthermia: No Meds Allergies/Adverse Reactions: Allergies Allergy/AdvReac Type Severity Reaction Status Date / Time No Known Allergies Allergy Verified 11/03/17 15:26 - Medications Medications: Current Medications Aspirin (Aspirin) 325 mg PO DAILY [facility] Last Admin: 11/05/17 10:47 Dose: 325 mg Diltiazem HCl (Cardizem) 30 mg PO Q8 [facility] Last Admin: 11/05/17 22:48 Dose: 30 mg Docusate Sodium (Colace) 100 mg PO DAILY [facility] Last Admin: 11/05/17 10:47 Dose: 100 mg Famotidine (Pepcid) 20 mg PO BID [facility] Last Admin: 11/05/17 17:58 Dose: 20 mg Heparin Sodium/Sodium Chloride (Heparin 36454 Units/250ml 1/2 Normal Saline) 25 ,000 units in 250 mls @ 13.798 mls/hr IV .Q18H8M PRN; Protocol; 18 UNITS/KG/HR PRN Reason: PROTOCOL Last Admin: 11/05/17 18:30 Dose: 18 units/kg/hr, 13.798 mls/hr Oxycodone/Acetaminophen (Percocet 5/325 Mg Tab) 1 tab PO Q4H PRN PRN Reason: Pain, moderate (4-7) Stop: 11/06/17 21:24 Last Admin: 11/05/17 14:33 Dose: 1 tab Physical Exam - Constitutional Appears: Non-toxic - Head Exam Head Exam: NORMAL INSPECTION - Eye Exam Eye Exam: absent: Scleral icterus - ENT Exam ENT Exam: Mucous Membranes Moist - Neck Exam Neck exam: Positive for: Full Rom - Respiratory Exam Respiratory Exam: Clear to Auscultation Bilateral - Cardiovascular Exam Cardiovascular Exam: REGULAR RHYTHM, Systolic Murmur Additional comments: Gr 2/6 systolic mid-peaking systolic murmur in bases - GI/Abdominal Exam GI & Abdominal Exam: Soft. absent: Tenderness - Extremities Exam Extremities exam: Negative for: calf tenderness Additional comments: gangrenous left foot digits plantar area - Neurological Exam Neurological exam: Alert, Oriented x3 Results - Vital Signs Recent Vital Signs: Last Vital Signs Temp 98 F 11/05/17 16:00 Pulse 73 11/05/17 16:00 Resp 20 11/05/17 16:00 BP 189/95 H 11/05/17 16:00 Pulse Ox 96 11/05/17 16:00 - Labs Result Diagrams: 11/05/17 08:43 11/05/17 08:43 Labs: Laboratory Results - last 24 hr 11/05/17 11/05/17 11/05/17 08:43 08:43 08:45 WBC 12.0 H RBC 5.54 H Hgb 17.9 H Hct 52.3 H MCV 94.3 MCH 32.3 H MCHC 34.3 RDW 14.2 Plt Count 685 H MPV 9.3 Neut % (Auto) 78.5 H Lymph % (Auto) 10.7 L [place] % (Auto) 7.6 Eos % (Auto) 2.5 Baso % (Auto) 0.7 Neut # (Auto) 9.5 H Lymph # (Auto) 1.3 [place] # (Auto) 0.9 H Eos # (Auto) 0.3 Baso # (Auto) 0.1 APTT 57 H D Sodium 136 Potassium 3.6 Chloride 100 Carbon Dioxide 26 Anion Gap 14 BUN 17 Creatinine 0.7 Est GFR ( Amer) > 60 Est GFR (Non-Af Amer) > 60 Random Glucose 98 Calcium 8.9 Total Bilirubin 0.7 AST 21 ALT 18 Alkaline Phosphatase 67 Total Protein 6.4 Albumin 3.4 L Globulin 3.1 Albumin/Globulin Ratio 1.1 Assessment & Plan - Assessment and Plan (Free Text) Assessment: PVD Gangrenous left foot r/o Valvular heart disease HTN Lipid disorder Plan: ECHO Lexiscan Heme consult with Dr Gan
[2017-11-06] MEDS: Oxycodone/Acetaminophen 5/325 mg Tab PO PRN (04:52)
[2017-11-06 07:25] LABS: BASO # 0.1 K/uL (0.0-0.2); BASO % 0.7 % (0.0-2.0); EOS # 0.2 K/uL (0.0-0.7); EOS % 1.9 % (0.0-4.0); HEMOGLOBIN 18.1 g/dL (11.0-16.0); LYMPH # 1.1 K/uL (1.0-4.3); LYMPH % 9.2 % (20.0-40.0); MEAN CELL VOLUME 94.4 fL (81.0-99.0); MEAN CORPUSCULAR HGB CONC 33.9 g/dL (33.0-37.0); MEAN PLATELET VOLUME 9.3 fL (7.2-11.7); MONO # 0.9 K/uL (0.0-0.8); MONO % 7.2 % (0.0-10.0); NEUT # 9.6 K/uL (1.8-7.0); NRBC % 0.1 % (0.0-2.0); PLATELET COUNT 664 K/uL (130-400); RBC 5.65 Mil/uL (3.80-5.20); RED CELL DISTRIBUTION WIDTH 14.3 % (11.5-14.5); WHITE BLOOD COUNT 11.9 K/uL (4.8-10.8)
--- NOTE | 2017-11-06 07:36 | CP.PCM.PN ---
Subjective - Date & Time of Evaluation Date of Evaluation: 11/06/17 Time of Evaluation: 07:36 - Subjective Subjective: Medicine progress note for Dr. Gallegos's service Patient was seen and examined at bedside in no acute distress. Patient reports having moderate pain in her foot at the time, as she has not received pain medication. Patient denies chest pain, shortness of breath, nausea, vomiting, fevers, headache, abdominal pain. Objective - Vital Signs/Intake and Output Vital Signs (last 24 hours): Temp Pulse Resp BP Pulse Ox 98.1 F 73 20 160/90 H 95 11/06/17 04:30 11/06/17 04:30 11/06/17 04:30 11/06/17 06:55 11/06/17 04:30 Intake and Output: 11/06/17 11/06/17 06:59 18:59 Intake Total 589 Balance 589 - Medications Medications: Current Medications Aspirin (Aspirin) 325 mg PO DAILY [facility] Last Admin: 11/05/17 10:47 Dose: 325 mg Diltiazem HCl (Cardizem) 30 mg PO Q8 [facility] Last Admin: 11/06/17 05:30 Dose: 30 mg Docusate Sodium (Colace) 100 mg PO DAILY [facility] Last Admin: 11/05/17 10:47 Dose: 100 mg Famotidine (Pepcid) 20 mg PO BID [facility] Last Admin: 11/05/17 17:58 Dose: 20 mg Heparin Sodium/Sodium Chloride (Heparin 07627 Units/250ml 1/2 Normal Saline) 25 ,000 units in 250 mls @ 13.798 mls/hr IV .Q18H8M PRN; Protocol; 18 UNITS/KG/HR PRN Reason: PROTOCOL Last Admin: 11/05/17 18:30 Dose: 18 units/kg/hr, 13.798 mls/hr Oxycodone/Acetaminophen (Percocet 5/325 Mg Tab) 1 tab PO Q4H PRN PRN Reason: Pain, moderate (4-7) Stop: 11/06/17 21:24 Last Admin: 11/06/17 04:52 Dose: 1 tab - Labs Labs: 11/06/17 07:07 11/05/17 08:43 PT 13.1 SECONDS (9.7-12.2) H 11/03/17 17:21 INR 1.1 11/03/17 17:21 APTT 57 SECONDS (21-34) H D 11/05/17 08:45 - Additional Findings Additional findings: - Additional Findings Additional findings: - Constitutional Appears: No Acute Distress - Head Exam Head Exam: ATRAUMATIC, NORMAL INSPECTION - Eye Exam Eye Exam: EOMI, Normal appearance - ENT Exam ENT Exam: Mucous Membranes Moist - Respiratory Exam Respiratory Exam: Clear to Ausculation Bilateral, NORMAL BREATHING PATTERN. absent: Rales, Rhonchi, Wheezes, Respiratory Distress - Cardiovascular Exam Cardiovascular Exam: REGULAR RHYTHM, +S1, +S2 - GI/Abdominal Exam GI & Abdominal Exam: Soft, Normal Bowel Sounds, Murmur. absent: Distended, Firm , Tenderness - Extremities Exam Extremities Exam: absent: Normal Inspection Additional comments: left LE- no palpable pulses; gangrene on digits 1-4 of left foot; painful to palpation. right LE- no palpable pulses, sensation intact; - Neurological Exam Neurological Exam: Alert, Awake, Oriented x3 - Psychiatric Exam Psychiatric exam: Normal Affect, Normal Mood - Skin Skin Exam: Dry, Intact, Warm Assessment and Plan - Assessment and Plan (Free Text) Plan: 72 year old female with a past medical history of thrombocytosis and hypertension who is admitted for gangrene of the left foot. Plan: 1.Gangrene of the left foot * Patient seen at Dr. Pierre's and Cholo's office on 11/03/17 were it was cleaned, soaked and re-bandaged. She was referred to the emergency room due to the severity. * Lower extremity duplex showed occlusion of the left popliteal and anterior tibial * Heparin Bolus given in the emergency department. Heparin drip started in the emergency department afterwards. * Heparin drip continued * Percocet prn for pain * Dr. Pierre consulted. Will f/u with rec's * multiple infra geniculate occlusions with left foot gangrene * needs traditional angio and might need bypass surgery 2.Hypertensive urgency * BP upon admission 225/108. * Patient normal range of SBP is in the 160's. Patient is asymptomatic upon examination. * Clonindine .2mg given in the Emergency room. * Cardizem 60mg Q8 (increased from 30mg on 11/06/17) * Holding parameters: BP less than 140 * Heart healthy diet (2g Na restriction) * Cardiology consulted, Dr. Gan; help appreciated * Echo: f/u results 3.Thrombocytosis * 850 upon admission; trending down * Rubberizing Mechanic consulted, Dr. Aguilar; help appreciated Prophylaxis: * Pepcid 20mg BID * NO SCDs * Heparin Drip * Heart Healthy diet (NPO@[place] on 11/06/17 for procedure on Monday) Dispo: Patient was originally planned for angio today, 11/06/17, however it was rescheduled for tomorrow. Heparin held, NPO. Discussed with Dr. Gallegos
[2017-11-06 08:04] LABS: ALB/GLOB RATIO 1.1 (1.0-2.1); ALBUMIN 3.3 g/dL (3.5-5.0); ALT/SGPT 12 U/L (9-52); AST/SGOT 26 U/L (14-36); BLOOD UREA NITROGEN 16 mg/dL (7-17); GFR AFRICAN-AMERICAN > 60; GFR NON-AFRICAN AMERICAN > 60
[2017-11-06 08:45] LABS: BASOPHIL 2 % (0-2); EOSINOPHIL 4 % (0-4); LYMPHOCYTE 11 % (20-40); MONOCYTE 6 % (0-10); NEUTROPHIL 77 % (50-75); TOTAL CELLS COUNTED 100
[2017-11-06 08:46] LABS: LARGE PLATELETS PRESENT; PLATELET ESTIMATE INCREASED (NORMAL)
--- NOTE | 2017-11-06 13:10 | VASCLAB ---
PROCEDURE: Left Lower Extremity Venous Duplex Exam. HISTORY: Leg swelling PRIORS: None. TECHNIQUE: Left common femoral, femoral, popliteal and posterior tibial, peroneal and great saphenous veins were evaluated. Flow was assessed with color Doppler, compressibility, assessment of phasic flow and augmentation response. Report prepared by SHANITA Lawton, RVT FINDINGS: LEFT: 1. Common Femoral Vein: 1.1. Compressibility - Fully compressible: Thrombus - None : Flow - Phasic: Augmentation -Normal: Reflux - None. 2. Femoral Vein: 2.1. Compressibility - Fully compressible: Thrombus - None: Flow - Phasic: Augmentation -Normal: Reflux - None. 3. Popliteal Vein: 3.1. Compressibility - Partial: Thrombus - Acute: Flow - Absent : Augmentation -None: Reflux - None. 4. Posterior Tibial Vein: 4.1. Compressibility - Fully compressible: Thrombus - None: Flow - Phasic: Augmentation -Normal: Reflux - None. 5. Peroneal Vein: 5.1. Compressibility - Fully compressible: Thrombus - None: Flow - Phasic: Augmentation -Normal: Reflux - Severe. 6. Great Saphenous Vein: 6.1. Compressibility - Fully compressible: Thrombus - None: Flow - Phasic: Augmentation - Normal: Reflux - Severe. OTHER FINDINGS: DO Passafaro notified about the findings. IMPRESSION: Acute thrombosis of the left popliteal vein with severe reduction of the venous return. Severe valvular incompetence of the left peroneal and greater saphenous veins. Normal venous flow noted in the right common femoral vein.
--- NOTE | 2017-11-06 13:10 | VASCLAB ---
PROCEDURE: Left Lower Extremity Arterial Exam. HISTORY: left foot gangrene COMPARISON: None available. TECHNIQUE: Grayscale and duplex Doppler evaluation of the left common femoral, femoral, profunda femoral, popliteal, posterior tibial, anterior tibial and dorsalis pedis arteries was performed. Report prepared by SHANITA Lawton, RVT FINDINGS: LEFT LOWER EXTREMITY: * Common Femoral Artery: Peak Systolic Velocity - 222: Doppler Waveform: Biphasic: Plaque description - Calcific * Profunda Femoral Artery: Peak Systolic Velocity - 116: Doppler Waveform: Biphasic.: Plaque description - Calcific * Femoral Artery o Proximal Segment: Peak Systolic Velocity - 130: Doppler Waveform: Biphasic: Plaque description - Calcific o Middle Segment: Peak Systolic Velocity - 77: Doppler Waveform: Biphasic: Plaque description - Calcific o Distal Segment: Peak Systolic Velocity - 71: Doppler Waveform: Monophasic: Plaque description - Calcific * Popliteal Artery o Proximal Segment: Peak Systolic Velocity - 20: Doppler Waveform: Monophasic: Plaque description - Homogeneous o Middle Segment: Peak Systolic Velocity - 0: Doppler Waveform: Absent: Plaque description - Homogeneous o Distal Segment: Peak Systolic Velocity - 0: Doppler Waveform: Absent: Plaque description - Homogeneous * Posterior Tibial Artery: Peak Systolic Velocity - 26: Doppler Waveform: Monophasic: Plaque description - Calcific * Anterior Tibial Artery: Peak Systolic Velocity - 0: Doppler Waveform: Absent: Plaque description - Calcific * Dorsalis Pedis Artery: Peak Systolic Velocity - : Doppler Waveform: Plaque description - OTHER FINDINGS: DO Gerhard notified about the findings. IMPRESSION: LEFT: Occlusion of the left mid to distal popliteal and anterior tibial arteries. 50-75% stenosis of the left common femoral artery.
--- NOTE | 2017-11-06 13:28 | CP.PCM.PN ---
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 Objective - Vital Signs/Intake and Output Vital Signs (last 24 hours): Temp Pulse Resp BP Pulse Ox 98.1 F 73 20 160/90 H 95 11/06/17 04:30 11/06/17 04:30 11/06/17 04:30 11/06/17 06:55 11/06/17 04:30 Intake and Output: 11/06/17 11/06/17 06:59 18:59 Intake Total 589 Balance 589 - Medications Medications: Current Medications Acetaminophen (Tylenol 325mg Tab) 650 mg PO Q6 PRN PRN Reason: Pain, moderate (4-7) Last Admin: 11/06/17 12:25 Dose: 650 mg Aspirin (Aspirin) 325 mg PO DAILY [facility] Last Admin: 11/05/17 10:47 Dose: 325 mg Diltiazem HCl (Cardizem) 30 mg PO Q8 [facility] Last Admin: 11/06/17 05:30 Dose: 30 mg Docusate Sodium (Colace) 100 mg PO DAILY [facility] Last Admin: 11/05/17 10:47 Dose: 100 mg Famotidine (Pepcid) 20 mg PO BID [facility] Last Admin: 11/05/17 17:58 Dose: 20 mg Hydromorphone/Sodium Chloride (Dilaudid Distillery Supervisor) 6 mg IV Q4H PRN; Protocol PRN Reason: Pain, moderate (4-7) Heparin Sodium/Sodium Chloride (Heparin 71817 Units/250ml 1/2 Normal Saline) 25 ,000 units in 250 mls @ 13.798 mls/hr IV .Q18H8M PRN; Protocol; 18 UNITS/KG/HR PRN Reason: PROTOCOL Last Admin: 11/05/17 18:30 Dose: 18 units/kg/hr, 13.798 mls/hr Oxycodone/Acetaminophen (Percocet 5/325 Mg Tab) 1 tab PO Q4H PRN PRN Reason: Pain, moderate (4-7) Stop: 11/06/17 21:24 Last Admin: 11/06/17 04:52 Dose: 1 tab - Labs Labs: 11/06/17 07:07 11/06/17 07:07 PT 13.1 SECONDS (9.7-12.2) H 11/03/17 17:21 INR 1.1 11/03/17 17:21 APTT 40 SECONDS (21-34) H D 11/06/17 07:07
[2017-11-06] MEDS: Heparin25000 units/250ml 1/2NS 25,000 UNITS/250 ML BAG IV PRN (14:15)
--- NOTE | 2017-11-06 18:03 | CP.PCM.CON ---
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 She has poor compliance with her BP meds despite several attempts to reinforce compliance. She has been lost to follow up for a year, now with progressive swelling of the lower extremity and reopening of foot ulcer, weight loss, ?unable to remember appointments. Work up in the hospital now has revealed a DVT, PVD/gangrene, increased Hgb and splenic infarct, on heparin. Past Patient History - Infectious Disease Hx of Infectious Diseases: None - Past Medical History & Family History Past Medical History?: Yes - Past Social History Smoking Status: Never Smoked - CARDIAC Hx Hypertension: Yes - HEMATOLOGICAL/ONCOLOGICAL Hx Blood Disorders: Yes Other/Comment: Hx of elevated platelet count. - MUSCULOSKELETAL/RHEUMATOLOGICAL Hx Falls: No - PSYCHIATRIC Hx Substance Use: No - SURGICAL HISTORY Hx Tonsillectomy: Yes - ANESTHESIA Hx Anesthesia: Yes Hx Anesthesia Reactions: No Hx Malignant Hyperthermia: No Meds Allergies/Adverse Reactions: Allergies Allergy/AdvReac Type Severity Reaction Status Date / Time No Known Allergies Allergy Verified 11/03/17 15:26 - Medications Medications: Current Medications Acetaminophen (Tylenol 325mg Tab) 650 mg PO Q6 PRN PRN Reason: Pain, moderate (4-7) Last Admin: 11/06/17 12:25 Dose: 650 mg Aspirin (Aspirin) 325 mg PO DAILY [facility] Last Admin: 11/06/17 13:26 Dose: 325 mg Diltiazem HCl (Cardizem) 30 mg PO Q8 [facility] Last Admin: 11/06/17 13:25 Dose: 30 mg Docusate Sodium (Colace) 100 mg PO DAILY [facility] Last Admin: 11/06/17 13:25 Dose: 100 mg Famotidine (Pepcid) 20 mg PO BID [facility] Last Admin: 11/06/17 13:26 Dose: 20 mg Hydromorphone/Sodium Chloride (Dilaudid Tank Truck Engine Mechanic) 0.2 mg IV Q4H PRN; Protocol PRN Reason: Pain, moderate (4-7) Last Admin: 11/06/17 15:15 Dose: 0.2 mg Hydroxyurea (Hydrea) 500 mg PO BID [facility] Heparin Sodium/Sodium Chloride (Heparin 68674 Units/250ml 1/2 Normal Saline) 25 ,000 units in 250 mls @ 13.798 mls/hr IV .Q18H8M PRN; Protocol; 18 UNITS/KG/HR PRN Reason: PROTOCOL Last Admin: 11/06/17 14:15 Dose: 18 units/kg/hr, 13.798 mls/hr Oxycodone/Acetaminophen (Percocet 5/325 Mg Tab) 1 tab PO Q4H PRN PRN Reason: Pain, moderate (4-7) Stop: 11/06/17 21:24 Last Admin: 11/06/17 04:52 Dose: 1 tab Results - Vital Signs Recent Vital Signs: Last Vital Signs Temp 98.1 F 11/06/17 15:47 Pulse 79 11/06/17 15:47 Resp 27 H 11/06/17 15:55 BP 162/78 H 11/06/17 15:47 Pulse Ox 98 11/06/17 15:55 - Labs Result Diagrams: 11/06/17 07:07 11/06/17 07:07 Labs: Laboratory Results - last 24 hr 11/06/17 11/06/17 11/06/17 07:07 07:07 07:07 WBC 11.9 H RBC 5.65 H Hgb 18.1 H Hct 53.4 H MCV 94.4 MCH 32.0 H MCHC 33.9 RDW 14.3 Plt Count 664 H MPV 9.3 Neut % (Auto) 81.0 H Lymph % (Auto) 9.2 L Shelby % (Auto) 7.2 Eos % (Auto) 1.9 Baso % (Auto) 0.7 Neut # (Auto) 9.6 H Lymph # (Auto) 1.1 Shelby # (Auto) 0.9 H Eos # (Auto) 0.2 Baso # (Auto) 0.1 Neutrophils % (Manual) 77 H Lymphocytes % (Manual) 11 L Monocytes % (Manual) 6 Eosinophils % (Manual) 4 Basophils % (Manual) 2 Platelet Estimate Increased H Large Platelets Present APTT 40 H D Sodium 138 Potassium 3.7 Chloride 101 Carbon Dioxide 26 Anion Gap 14 BUN 16 Creatinine 0.7 Est GFR ( Amer) > 60 Est GFR (Non-Af Amer) > 60 Random Glucose 120 H Calcium 9.0 Total Bilirubin 0.7 AST 26 ALT 12 Alkaline Phosphatase 67 Total Protein 6.4 Albumin 3.3 L Globulin 3.1 Albumin/Globulin Ratio 1.1
--- NOTE | 2017-11-06 20:01 | CP.PCM.PN ---
Subjective - Date & Time of Evaluation Date of Evaluation: 11/06/17 Time of Evaluation: 16:05 - Subjective Subjective: HPI: 72 y/o non-diabetic woman with hx of Polycythemia vera admitted with 2 month hx of worsening left foot ulcer which progress to full-blown gangrene of left foot. Pt denied any chest pain, sob or palpitations. She srinivasan no hx of smoking, drinking or illicit drug use. EKG revealed NSR w/ ns st t changes. Review of Systems - EENT Eyes: Blurred Vision Nose/Mouth/Throat: absent: Epistaxis, Nasal Discharge, Neck Mass - Cardiovascular Cardiovascular: absent: Chest Pain, Edema, Irregular Heart Rhythm - Respiratory Respiratory: absent: Cough, Dyspnea - Gastrointestinal Gastrointestinal: absent: Abdominal Pain - Musculoskeletal Additional comments: left foot gangrene - Integumentary Integumentary: Skin Ulcer Physical Exam - Constitutional Appears: Non-toxic - Head Exam Head Exam: NORMAL INSPECTION - Eye Exam Eye Exam: absent: Scleral icterus - ENT Exam ENT Exam: Mucous Membranes Moist - Neck Exam Neck exam: Positive for: Full Rom - Respiratory Exam Respiratory Exam: Clear to Auscultation Bilateral - Cardiovascular Exam Cardiovascular Exam: REGULAR RHYTHM, Systolic Murmur Additional comments: Gr 2/6 systolic mid-peaking systolic murmur in bases - GI/Abdominal Exam GI & Abdominal Exam: Soft. absent: Tenderness - Extremities Exam Extremities exam: Negative for: calf tenderness Additional comments: gangrenous left foot digits plantar area - Neurological Exam Neurological exam: Alert, Oriented x3 Objective - Vital Signs/Intake and Output Vital Signs (last 24 hours): Temp Pulse Resp BP Pulse Ox 98.1 F 82 27 H 162/78 H 98 11/06/17 15:47 11/06/17 16:00 11/06/17 15:55 11/06/17 15:47 11/06/17 15:55 Intake and Output: 11/06/17 11/07/17 18:59 06:59 Intake Total 400 Balance 400 - Medications Medications: Current Medications Acetaminophen (Tylenol 325mg Tab) 650 mg PO Q6 PRN PRN Reason: Pain, moderate (4-7) Last Admin: 11/06/17 12:25 Dose: 650 mg Aspirin (Aspirin) 325 mg PO DAILY [facility] Last Admin: 11/06/17 13:26 Dose: 325 mg Diltiazem HCl (Cardizem) 60 mg PO Q8 [facility] Last Admin: 11/06/17 18:27 Dose: 60 mg Docusate Sodium (Colace) 100 mg PO DAILY [facility] Last Admin: 11/06/17 13:25 Dose: 100 mg Famotidine (Pepcid) 20 mg PO BID [facility] Last Admin: 11/06/17 18:27 Dose: 20 mg Hydromorphone/Sodium Chloride (Dilaudid Permanent Waver) 0.2 mg IV Q4H PRN; Protocol PRN Reason: Pain, moderate (4-7) Last Admin: 11/06/17 15:15 Dose: 0.2 mg Hydroxyurea (Hydrea) 500 mg PO BID [facility] Last Admin: 11/06/17 18:27 Dose: 500 mg Heparin Sodium/Sodium Chloride (Heparin 96914 Units/250ml 1/2 Normal Saline) 25 ,000 units in 250 mls @ 13.798 mls/hr IV .Q18H8M PRN; Protocol; 18 UNITS/KG/HR PRN Reason: PROTOCOL Last Admin: 11/06/17 14:15 Dose: 18 units/kg/hr, 13.798 mls/hr Oxycodone/Acetaminophen (Percocet 5/325 Mg Tab) 1 tab PO Q4H PRN PRN Reason: Pain, moderate (4-7) Stop: 11/06/17 21:24 Last Admin: 11/06/17 04:52 Dose: 1 tab - Labs Labs: 11/06/17 07:07 11/06/17 07:07 PT 13.1 SECONDS (9.7-12.2) H 11/03/17 17:21 INR 1.1 11/03/17 17:21 APTT 40 SECONDS (21-34) H D 11/06/17 07:07 Assessment and Plan - Assessment and Plan (Free Text) Assessment: Assessment and Plan - Assessment and Plan (Free Text) Plan: 72 year old female with a past medical history of thrombocytosis and hypertension who is admitted for gangrene of the left foot. Plan: 1.Gangrene of the left foot * Patient seen at Dr. Pierre's and Cholo's office on 11/03/17 were it was cleaned, soaked and re-bandaged. She was referred to the emergency room due to the severity. * Lower extremity duplex showed occlusion of the left popliteal and anterior tibial * Heparin Bolus given in the emergency department. Heparin drip started in the emergency department afterwards. * Heparin drip continued * Percocet prn for pain * Dr. Pierre consulted. Will f/u with rec's * multiple infra geniculate occlusions with left foot gangrene * needs traditional angio and might need bypass surgery 2.Hypertensive urgency * BP upon admission 225/108. * Patient normal range of SBP is in the 160's. Patient is asymptomatic upon examination. * Clonindine .2mg given in the Emergency room. * Cardizem 60mg Q8 (increased from 30mg on 11/06/17) * Holding parameters: BP less than 140 * Heart healthy diet (2g Na restriction) * Echo: f/u results 3.Thrombocytosis * 850 upon admission; trending down * Retail Assistant consulted, Dr. Aguilar; help appreciated Prophylaxis: * Pepcid 20mg BID * NO SCDs * Heparin Drip
[2017-11-07 06:05] LABS: BASO # 0.1 K/uL (0.0-0.2); BASO % 0.5 % (0.0-2.0); EOS # 0.3 K/uL (0.0-0.7); EOS % 2.2 % (0.0-4.0); LYMPH # 1.2 K/uL (1.0-4.3); LYMPH % 10.4 % (20.0-40.0); MEAN CELL VOLUME 94.5 fL (81.0-99.0); MEAN CORPUSCULAR HEMOGLOBIN 31.6 pg (27.0-31.0); MEAN CORPUSCULAR HGB CONC 33.4 g/dL (33.0-37.0); MEAN PLATELET VOLUME 9.3 fL (7.2-11.7); MONO # 1.1 K/uL (0.0-0.8); MONO % 9.2 % (0.0-10.0); NEUT # 9.1 K/uL (1.8-7.0); NEUT % 77.7 % (50.0-75.0); NRBC % 0.1 % (0.0-2.0); RBC 5.71 Mil/uL (3.80-5.20); RED CELL DISTRIBUTION WIDTH 14.6 % (11.5-14.5); WHITE BLOOD COUNT 11.7 K/uL (4.8-10.8)
[2017-11-07 06:37] LABS: ALBUMIN 3.3 g/dL (3.5-5.0); ALT/SGPT 22 U/L (9-52); AST/SGOT 23 U/L (14-36); BLOOD UREA NITROGEN 18 mg/dL (7-17); CALCIUM 9.3 mg/dl (8.6-10.4); GFR AFRICAN-AMERICAN > 60; GFR NON-AFRICAN AMERICAN > 60
--- NOTE | 2017-11-07 09:15 | CP.PCM.PN ---
Subjective - Date & Time of Evaluation Date of Evaluation: 11/07/17 Time of Evaluation: 09:15 - Subjective Subjective: Medicine progress note for Dr. Gallegos's service Patient was seen and examined at bedside in no acute distress. Patient reports having moderate pain in her foot intermittently. She reports her pain medication helps to reduce the severity. Patient denies chest pain, shortness of breath, nausea, vomiting, fevers, headache, abdominal pain. Objective - Vital Signs/Intake and Output Vital Signs (last 24 hours): Temp Pulse Resp BP Pulse Ox 97.8 F 80 20 177/81 H 95 11/07/17 07:00 11/07/17 07:00 11/07/17 07:00 11/07/17 07:00 11/07/17 07:00 Intake and Output: 11/07/17 11/07/17 06:59 18:59 Intake Total 616.8 Output Total 400 Balance 216.8 - Medications Medications: Current Medications Acetaminophen (Tylenol 325mg Tab) 650 mg PO Q6 PRN PRN Reason: Pain, moderate (4-7) Last Admin: 11/06/17 12:25 Dose: 650 mg Aspirin (Aspirin) 325 mg PO DAILY [facility] Last Admin: 11/06/17 13:26 Dose: 325 mg Diltiazem HCl (Cardizem) 60 mg PO Q8 [facility] Last Admin: 11/07/17 05:42 Dose: 60 mg Docusate Sodium (Colace) 100 mg PO DAILY [facility] Last Admin: 11/06/17 13:25 Dose: 100 mg Famotidine (Pepcid) 20 mg PO BID [facility] Last Admin: 11/06/17 18:27 Dose: 20 mg Hydromorphone/Sodium Chloride (Dilaudid Cardiology Tech) 0.2 mg IV Q4H PRN; Protocol PRN Reason: Pain, moderate (4-7) Last Admin: 11/06/17 15:15 Dose: 0.2 mg Hydroxyurea (Hydrea) 500 mg PO BID [facility] Last Admin: 11/06/17 18:27 Dose: 500 mg Heparin Sodium/Sodium Chloride (Heparin 57194 Units/250ml 1/2 Normal Saline) 25 ,000 units in 250 mls @ 13.798 mls/hr IV .Q18H8M PRN; Protocol; 18 UNITS/KG/HR PRN Reason: PROTOCOL Last Admin: 11/06/17 14:15 Dose: 18 units/kg/hr, 13.798 mls/hr - Labs Labs: 11/07/17 05:49 11/07/17 05:49 PT 13.1 SECONDS (9.7-12.2) H 11/03/17 17:21 INR 1.1 11/03/17 17:21 APTT 54 SECONDS (21-34) H D 11/07/17 05:49 - Additional Findings Additional findings: - Constitutional Appears: No Acute Distress - Head Exam Head Exam: ATRAUMATIC, NORMAL INSPECTION - Eye Exam Eye Exam: EOMI, Normal appearance - ENT Exam ENT Exam: Mucous Membranes Moist - Respiratory Exam Respiratory Exam: Clear to Ausculation Bilateral, NORMAL BREATHING PATTERN. absent: Rales, Rhonchi, Wheezes, Respiratory Distress - Cardiovascular Exam Cardiovascular Exam: Murmur, REGULAR RHYTHM, +S1, +S2 - GI/Abdominal Exam GI & Abdominal Exam: Soft, Normal Bowel Sounds. absent: Distended, Firm, Tenderness - Extremities Exam Extremities Exam: absent: Normal Inspection Additional comments: left LE- no palpable pulses; gangrene on digits 1-4 of left foot; painful to palpation. right LE- no palpable pulses, sensation intact; - Neurological Exam Neurological Exam: Alert, Awake, Oriented x3 - Psychiatric Exam Psychiatric exam: Normal Affect, Normal Mood - Skin Skin Exam: Dry, Intact, Warm Assessment and Plan - Assessment and Plan (Free Text) Plan: 72 year old female with a past medical history of thrombocytosis and hypertension who is admitted for gangrene of the left foot. Plan: 1.Gangrene of the left foot * Patient seen at Dr. Pierre's and Cholo's office on 11/03/17 were it was cleaned, soaked and re-bandaged. She was referred to the emergency room due to the severity. * Lower extremity duplex showed occlusion of the left popliteal and anterior tibial * Heparin Bolus given in the emergency department. Heparin drip started in the emergency department afterwards. * Heparin drip continued * Percocet prn for pain * Dr. Pierre consulted. Will f/u with rec's * multiple infra geniculate occlusions with left foot gangrene * needs traditional angio and might need bypass surgery 2.Hypertensive urgency * BP upon admission 225/108. * Patient normal range of SBP is in the 160's. Patient is asymptomatic upon examination. * Clonindine .2mg given in the Emergency room. * Cardizem 60mg Q8 (increased from 30mg on 11/06/17) * Holding parameters: BP less than 140 * Heart healthy diet (2g Na restriction) * Cardiology consulted, Dr. Gan; help appreciated * Echo: f/u official report 3.Thrombocytosis * 850 upon admission; trending down * Texturing Machine Fixer consulted, Dr. Aguilar; help appreciated Prophylaxis: * Pepcid 20mg BID * NO SCDs * Heparin Drip * Heart Healthy diet Dispo: Patient planned for angio today, 11/07/17, follow up results. Heparin held , NPO. Discussed with Dr. Gallegos
[2017-11-07] MEDS ORDERED: Midazolam 2 MG/2 ML VIAL ONE ×2 (12:07→12:48)
[2017-11-07] MEDS ORDERED: Lidocaine 2% Inj (20ml) ONE (12:10)
[2017-11-07] MEDS ORDERED: Nitroglycerin 50mg in D5W 0 MG/0 ML BOTTLE IV ONE (12:11)
[2017-11-07] MEDS ORDERED: Iodixanol 320 MG/ML 200 ML BOTTLE IV ONE (12:11)
[2017-11-07] MEDS ORDERED: Propofol 10 mg/ml Inj (20 ML) ONE (12:58)
--- NOTE | 2017-11-07 13:21 | PCM.SURG1 ---
Surgeon's Initial Post Op Note - Surgeon's Notes Surgeon: Dr. Pierre Account Relationship Manager: Eugenia Khan, PGY-1 Pre-Operative Diagnosis: Peripheral vascular disease, necrotic L foot Operative Findings: Aortofemoral angiography of Left femoral Artery- multiple popliteal stenoses, trifurcation occlusion, Posterior Tibial Artery is major vessel to left foot, several pedial disease, only remnant of dorsalis pedis in the left foot Post-Operative Diagnosis: Severe peripheral vascular disease Operation Performed: Aortofemoral angiography of Left femoral Artery Specimen/Specimens Removed: None Estimated Blood Loss: EBL {In ML}: 10 Blood Products Given: N/A Drains Used: No Drains Post-Op Condition: Good Date of Surgery/Procedure: 11/07/17 Time of Surgery/Procedure: 13:20
[2017-11-07] MEDS: Heparin25000 units/250ml 1/2NS 25,000 UNITS/250 ML BAG IV PRN ×2 (15:44→23:15)
--- NOTE | 2017-11-07 16:01 | CP.PCM.PN ---
<Rylan Voss - Last Filed: 11/07/17 15:56> Subjective - Date & Time of Evaluation Date of Evaluation: 11/07/17 Time of Evaluation: 15:56 - Subjective Subjective: PGY-[address] Gan. No acute events overnight. Patient denied chest pain or palpitations. She complained about having moderate pain in her foot intermittently. Objective - Vital Signs/Intake and Output Vital Signs (last 24 hours): Temp Pulse Resp BP Pulse Ox 97.7 F 71 20 187/95 H 97 11/07/17 14:55 11/07/17 15:09 11/07/17 14:55 11/07/17 14:55 11/07/17 14:55 Intake and Output: 11/07/17 11/07/17 06:59 18:59 Intake Total 616.8 250 Output Total 400 Balance 216.8 250 - Medications Medications: Current Medications Acetaminophen (Tylenol 325mg Tab) 650 mg PO Q6 PRN PRN Reason: Pain, moderate (4-7) Last Admin: 11/06/17 12:25 Dose: 650 mg Amlodipine Besylate (Norvasc) 10 mg PO DAILY [facility] Last Admin: 11/07/17 15:10 Dose: 10 mg Aspirin (Aspirin) 325 mg PO DAILY [facility] Last Admin: 11/07/17 09:42 Dose: 325 mg Docusate Sodium (Colace) 100 mg PO DAILY [facility] Last Admin: 11/07/17 09:42 Dose: 100 mg Famotidine (Pepcid) 20 mg PO BID [facility] Last Admin: 11/07/17 09:42 Dose: 20 mg Hydromorphone/Sodium Chloride (Dilaudid Printing Agent) 0.2 mg IV Q4H PRN; Protocol PRN Reason: Pain, moderate (4-7) Last Admin: 11/06/17 15:15 Dose: 0.2 mg Hydroxyurea (Hydrea) 500 mg PO BID [facility] Last Admin: 11/07/17 09:42 Dose: 500 mg Heparin Sodium/Sodium Chloride (Heparin 28675 Units/250ml 1/2 Normal Saline) 25 ,000 units in 250 mls @ 13.798 mls/hr IV .Q18H8M PRN; Protocol; 18 UNITS/KG/HR PRN Reason: PROTOCOL Last Admin: 11/07/17 15:44 Dose: 18 units/kg/hr, 13.798 mls/hr Sodium Chloride (Sodium Chloride 0.45%) 1,000 mls @ 80 mls/hr IV .[id number] [facility] Stop: 11/08/17 16:00 Losartan Potassium (Cozaar) 25 mg PO DAILY [facility] Last Admin: 11/07/17 15:10 Dose: 25 mg - Labs Labs: 11/07/17 05:49 11/07/17 05:49 PT 13.1 SECONDS (9.7-12.2) H 11/03/17 17:21 INR 1.1 11/03/17 17:21 APTT 54 SECONDS (21-34) H D 11/07/17 05:49 - Additional Findings Additional findings: - Constitutional Appears: No Acute Distress - Head Exam Head Exam: ATRAUMATIC, NORMAL INSPECTION - Eye Exam Eye Exam: EOMI, Normal appearance - ENT Exam ENT Exam: Mucous Membranes Moist - Respiratory Exam Respiratory Exam: Clear to Ausculation Bilateral, NORMAL BREATHING PATTERN. absent: Rales, Rhonchi, Wheezes, Respiratory Distress - Cardiovascular Exam Cardiovascular Exam: Murmur, REGULAR RHYTHM, +S1, +S2 - GI/Abdominal Exam GI & Abdominal Exam: Soft, Normal Bowel Sounds. absent: Distended, Firm, Tenderness - Extremities Exam Extremities Exam: absent: Normal Inspection Additional comments: left LE- no palpable pulses; gangrene on digits 1-4 of left foot; painful to palpation. right LE- no palpable pulses, sensation intact; - Neurological Exam Neurological Exam: Alert, Awake, Oriented x3 - Psychiatric Exam Psychiatric exam: Normal Affect, Normal Mood - Skin Skin Exam: Dry, Intact, Warm Assessment and Plan - Assessment and Plan (Free Text) Assessment: Hypertensive urgency * BP upon admission 225/108. * Patient normal range of SBP is in the 160's. Patient is asymptomatic upon examination. * Clonindine .2mg given in the Emergency room. * DISCONTINUED Cardizem 60mg Q8 (increased from 30mg on 11/06/17) * Holding parameters: BP less than 140 * Discontinued 11/07/17 * START Amlodipine 10mg PO QD, started 11/07/17 * START Losartan 25mg PO QD, started 11/07/17 * Heart healthy diet (2g Na restriction) * Echo: normal (read by Dr Gan) <Brennen Gan - Last Filed: 11/07/17 18:34> Objective - Vital Signs/Intake and Output Vital Signs (last 24 hours): Temp Pulse Resp BP Pulse Ox 98.4 F 76 20 185/93 H 96 11/07/17 15:23 11/07/17 15:23 11/07/17 16:45 11/07/17 15:23 11/07/17 15:23 Intake and Output: 11/07/17 11/07/17 06:59 18:59 Intake Total 616.8 250 Output Total 400 Balance 216.8 250 - Medications Medications: Current Medications Acetaminophen (Tylenol 325mg Tab) 650 mg PO Q6 PRN PRN Reason: Pain, moderate (4-7) Last Admin: 11/06/17 12:25 Dose: 650 mg Amlodipine Besylate (Norvasc) 10 mg PO DAILY [facility] Last Admin: 11/07/17 15:10 Dose: 10 mg Aspirin (Aspirin) 325 mg PO DAILY [facility] Last Admin: 11/07/17 09:42 Dose: 325 mg Docusate Sodium (Colace) 100 mg PO DAILY [facility] Last Admin: 11/07/17 09:42 Dose: 100 mg Famotidine (Pepcid) 20 mg PO BID [facility] Last Admin: 11/07/17 17:37 Dose: 20 mg Hydromorphone/Sodium Chloride (Dilaudid Printing Agent) 0.2 mg IV Q4H PRN; Protocol PRN Reason: Pain, moderate (4-7) Last Admin: 11/07/17 16:09 Dose: 0.2 mg Hydroxyurea (Hydrea) 500 mg PO BID [facility] Last Admin: 11/07/17 17:37 Dose: 500 mg Heparin Sodium/Sodium Chloride (Heparin 77760 Units/250ml 1/2 Normal Saline) 25 ,000 units in 250 mls @ 13.798 mls/hr IV .Q18H8M PRN; Protocol; 18 UNITS/KG/HR PRN Reason: PROTOCOL Last Admin: 11/07/17 15:44 Dose: 18 units/kg/hr, 13.798 mls/hr Sodium Chloride (Sodium Chloride 0.45%) 1,000 mls @ 80 mls/hr IV .[id number] [facility] Stop: 11/08/17 16:00 Last Admin: 11/07/17 16:08 Dose: 80 mls/hr Losartan Potassium (Cozaar) 25 mg PO DAILY [facility] Last Admin: 11/07/17 15:10 Dose: 25 mg - Labs Labs: 11/07/17 05:49 11/07/17 05:49 PT 13.1 SECONDS (9.7-12.2) H 11/03/17 17:21 INR 1.1 11/03/17 17:21 APTT 54 SECONDS (21-34) H D 11/07/17 05:49 Assessment and Plan - Assessment and Plan (Free Text) Assessment: ECHO: LVH and Normal EF. Mild to moderate Patient likely needs BKA as per Vascular Will do stress test in am as a part of Pre Op cardiac work up HTN controll with Amlodepine and Losartan JACOB Cardijulio
[2017-11-07] MEDS: Sodium Chloride 0.45% 1,000 ML IV SCH (16:08)
--- NOTE | 2017-11-07 18:16 | CP.PCM.CON ---
History of Present Illness - History of Present Illness History of Present Illness: Podiatry Consult Note - Dr. Marcial 72 year old female seen for evaluation of left foot gangrene. Pt sent for admission by project drilling engineer, Dr. Emmanuel, on 11/03/17. Pt reports chronic, intermittent, non radiating left foot pain, she reports is well managed to a 4/ 10 since she has been admitted. Pt is seen after her angiogrpaht performed this afternoon. Denies numbness/tingling of extremities, weakness of foot, F & C, N & V, changes in bowel or bladder habits, other complaints. PMH: HTN, thrombocytosis PSH: Tonsillectomy (age 4), R eye cataract sx (10/2017) All:NKDA SH: Admits to ETOH use- 2 glasses of wine 4-5x weekly, denies tobacco use, illicit drug use; ambulates with cane Past Patient History - Infectious Disease Hx of Infectious Diseases: None - Past Medical History & Family History Past Medical History?: Yes - Past Social History Smoking Status: Never Smoked - CARDIAC Hx Hypertension: Yes - HEMATOLOGICAL/ONCOLOGICAL Hx Blood Disorders: Yes Other/Comment: Hx of elevated platelet count. - MUSCULOSKELETAL/RHEUMATOLOGICAL Hx Falls: No - PSYCHIATRIC Hx Substance Use: No - SURGICAL HISTORY Hx Tonsillectomy: Yes - ANESTHESIA Hx Anesthesia: Yes Hx Anesthesia Reactions: No Hx Malignant Hyperthermia: No Meds Allergies/Adverse Reactions: Allergies Allergy/AdvReac Type Severity Reaction Status Date / Time No Known Allergies Allergy Verified 11/03/17 15:26 - Medications Medications: Current Medications Acetaminophen (Tylenol 325mg Tab) 650 mg PO Q6 PRN PRN Reason: Pain, moderate (4-7) Last Admin: 11/06/17 12:25 Dose: 650 mg Amlodipine Besylate (Norvasc) 10 mg PO DAILY [facility] Last Admin: 11/07/17 15:10 Dose: 10 mg Aspirin (Aspirin) 325 mg PO DAILY [facility] Last Admin: 11/07/17 09:42 Dose: 325 mg Docusate Sodium (Colace) 100 mg PO DAILY [facility] Last Admin: 11/07/17 09:42 Dose: 100 mg Famotidine (Pepcid) 20 mg PO BID [facility] Last Admin: 11/07/17 17:37 Dose: 20 mg Hydromorphone/Sodium Chloride (Dilaudid Supervisor [employer]) 0.2 mg IV Q4H PRN; Protocol PRN Reason: Pain, moderate (4-7) Last Admin: 11/07/17 16:09 Dose: 0.2 mg Hydroxyurea (Hydrea) 500 mg PO BID [facility] Last Admin: 11/07/17 17:37 Dose: 500 mg Heparin Sodium/Sodium Chloride (Heparin 33330 Units/250ml 1/2 Normal Saline) 25 ,000 units in 250 mls @ 13.798 mls/hr IV .Q18H8M PRN; Protocol; 18 UNITS/KG/HR PRN Reason: PROTOCOL Last Admin: 11/07/17 15:44 Dose: 18 units/kg/hr, 13.798 mls/hr Sodium Chloride (Sodium Chloride 0.45%) 1,000 mls @ 80 mls/hr IV .[id number] [facility] Stop: 11/08/17 16:00 Last Admin: 11/07/17 16:08 Dose: 80 mls/hr Losartan Potassium (Cozaar) 25 mg PO DAILY [facility] Last Admin: 11/07/17 15:10 Dose: 25 mg Physical Exam - Constitutional Appears: Well, Non-toxic, No Acute Distress - Extremities Exam Additional comments: Left lower extremity focused. Dressing clean, dry, and intact. VASC: DP and PT pulses weakly palpable, graded 1/4. Temperature runs warm to cool proximal to distal within normal limits. No capillary refill time absnet to central 3 digits and < 5 seconds to 1st and 5th digit. DERM: Left foot with blackend skin extending from lateral 1st digit to medial 4th digit including interspaces. Forefoot ischemic rbound erythem anoted. Full thickness ulceration with fibrotic nexrotic wound bases. Noted heavy gentian sarah staining impairing ability to accurately note necrotic vs fibrotic tissue percentage. Mild srous discharge noted. - Neurological Exam Neurological exam: Alert, Oriented x3 - Psychiatric Exam Psychiatric exam: Normal Affect, Normal Mood Results - Vital Signs Recent Vital Signs: Last Vital Signs Temp 98.4 F 11/07/17 15:23 Pulse 76 11/07/17 15:23 Resp 20 11/07/17 16:45 BP 185/93 H 11/07/17 15:23 Pulse Ox 96 11/07/17 15:23 - Labs Result Diagrams: 11/07/17 05:49 11/07/17 05:49 Labs: Laboratory Results - last 24 hr 11/06/17 11/07/17 11/07/17 22:36 05:49 05:49 WBC 11.7 H RBC 5.71 H Hgb 18.0 H Hct 54.0 H MCV 94.5 MCH 31.6 H MCHC 33.4 RDW 14.6 H Plt Count 628 H MPV 9.3 Neut % (Auto) 77.7 H Lymph % (Auto) 10.4 L Caldwell % (Auto) 9.2 Eos % (Auto) 2.2 Baso % (Auto) 0.5 Neut # (Auto) 9.1 H Lymph # (Auto) 1.2 Caldwell # (Auto) 1.1 H Eos # (Auto) 0.3 Baso # (Auto) 0.1 APTT 49 H D Sodium 137 Potassium 3.9 Chloride 102 Carbon Dioxide 26 Anion Gap 13 BUN 18 H Creatinine 0.8 Est GFR ( Amer) > 60 Est GFR (Non-Af Amer) > 60 Random Glucose 119 H Calcium 9.3 Total Bilirubin 0.9 AST 23 ALT 22 Alkaline Phosphatase 65 Total Protein 6.5 Albumin 3.3 L Globulin 3.2 Albumin/Globulin Ratio 1.0 11/07/17 05:49 WBC RBC Hgb Hct MCV MCH MCHC RDW Plt Count MPV Neut % (Auto) Lymph % (Auto) Caldwell % (Auto) Eos % (Auto) Baso % (Auto) Neut # (Auto) Lymph # (Auto) Caldwell # (Auto) Eos # (Auto) Baso # (Auto) APTT 54 H D Sodium Potassium Chloride Carbon Dioxide Anion Gap BUN Creatinine Est GFR ( Amer) Est GFR (Non-Af Amer) Random Glucose Calcium Total Bilirubin AST ALT Alkaline Phosphatase Total Protein Albumin Globulin Albumin/Globulin Ratio Assessment & Plan - Assessment and Plan (Free Text) Assessment: 72 year old with 1) left foot Pineda grade 4 ulceration/ forefoot wet gangrene secondary to PAD. 2) Left Popliteal vein DVT 3) Thrrombocytosis. Plan: Pt seen and evaluated. Discussed with attending, Dr. Marcial. Chart, Labs, and vitals reviewed. Afebrile, Afebrile, absent leukocytosis. Platlet count =628 Cleansed wound site with sterile saline, Dressed with Betadine soaked 4x4, and DSD. To be telfa DSD dressing tomorrow. Reviewed Arterial duplex, venous duplex, and CTA results. Discussed with Dr. Pierre s/p angiogram, potential bypass indicated. Awaiting further intervention and recommendations. Continue Heparin Drip DVT prophylaxis. Continue pain control. Potential podiatric surgery intervention indicated, awaiting final vascular intervention to reperfuse left lower extremity. Podiatry will continue to follow this patient while inhouse. Thank you for this consult. - Date & Time Date: 11/07/17 Time: 14:40
[2017-11-08] MEDS: Sodium Chloride 0.45% 1,000 ML IV SCH (04:55)
[2017-11-08 05:38] LABS: ALB/GLOB RATIO 1.1 (1.0-2.1); ALBUMIN 3.5 g/dL (3.5-5.0); ALT/SGPT 23 U/L (9-52); AST/SGOT 26 U/L (14-36); BLOOD UREA NITROGEN 15 mg/dL (7-17); CALCIUM 9.2 mg/dl (8.6-10.4); GFR AFRICAN-AMERICAN > 60; GFR NON-AFRICAN AMERICAN > 60; MAGNESIUM 1.7 mg/dL (1.6-2.3)
[2017-11-08 07:06] LABS: BASO # 0.1 K/uL (0.0-0.2); BASO % 0.7 % (0.0-2.0); EOS # 0.3 K/uL (0.0-0.7); LYMPH # 1.4 K/uL (1.0-4.3); LYMPH % 10.6 % (20.0-40.0); MEAN CORPUSCULAR HEMOGLOBIN 32.1 pg (27.0-31.0); MEAN CORPUSCULAR HGB CONC 33.8 g/dL (33.0-37.0); MEAN PLATELET VOLUME 9.5 fL (7.2-11.7); MONO # 1.2 K/uL (0.0-0.8); NEUT # 10.4 K/uL (1.8-7.0); NEUT % 77.7 % (50.0-75.0); NRBC % 0.1 % (0.0-2.0); RBC 5.6 Mil/uL (3.80-5.20); RED CELL DISTRIBUTION WIDTH 14.5 % (11.5-14.5); WHITE BLOOD COUNT 13.4 K/uL (4.8-10.8)
[2017-11-08] MEDS ORDERED: Aminophylline 25 mg/ml Inj ONE (08:58)
--- NOTE | 2017-11-08 10:58 | OP ---
DATE: 11/07/2017 PREOPERATIVE DIAGNOSIS: Gangrene, left foot. POSTOPERATIVE DIAGNOSIS: Gangrene, left foot PROCEDURE: Aortofemoral angiogram with selective catheterization of left femoral artery. No intervention undertaken. SURGEON: Juma Pierre Jr., MD CLOSING MANAGER: Dr. Khan. ANESTHESIOLOGIST: Dillon. ANESTHESIA: Local with sedation. INDICATIONS: The patient is a 72-year-old woman with gangrene in the left foot. She also has left popliteal vein thrombosis. OPERATIVE FINDINGS: The aorta and renal arteries were free of significant occlusive disease. There was some annular dilatation of the infrarenal aorta. Both common iliacs, external iliac, and common femoral arteries were widely patent. The superficial femoral artery was widely patent on both sides. On the right side, we did not take detailed pictures below the level of the knee due to the patient's body habitus. On the left side, there was severe disease, multiple popliteal stenosis and behind the knee, below this there is complete occlusion of the trifurcation vessels. There is reconstitution of the proximal portion of the peroneal artery and the posterior tibial artery was the major vessel into the foot. Unfortunately, views of the foot, the popliteal and the posterior tibial artery were occluded just above the ankle and there were only remnants of the dorsalis pedis in the foot. So on summation, the patient has severe popliteal, tibial, and pedal disease. Subsequent to this, the catheter was removed and a Perclose device was deployed in the right groin. The operation was carried out. Aortofemoral angiogram with selective catheterization of the left femoral artery. No intervention undertaken. Juma Pierre Jr., MD
--- NOTE | 2017-11-08 11:01 | CP.PCM.PN ---
Subjective - Date & Time of Evaluation Date of Evaluation: 11/08/17 Time of Evaluation: 10:58 - Subjective Subjective: Medicine progress note for Dr. Gallegos's service Patient was seen and examined at bedside in no acute distress. Patient reports still having pain in her foot but her pain medication helps to reduce the discomfort. Patient denies chest pain, shortness of breath, nausea, vomiting, fevers, headache, abdominal pain. Objective - Vital Signs/Intake and Output Vital Signs (last 24 hours): Temp Pulse Resp BP Pulse Ox 98.6 F 87 20 172/81 H 96 11/08/17 07:00 11/08/17 09:32 11/08/17 07:00 11/08/17 09:32 11/08/17 07:00 Intake and Output: 11/08/17 11/08/17 06:59 18:59 Intake Total 850.4 Balance 850.4 - Medications Medications: Current Medications Acetaminophen (Tylenol 325mg Tab) 650 mg PO Q6 PRN PRN Reason: Pain, moderate (4-7) Last Admin: 11/06/17 12:25 Dose: 650 mg Amlodipine Besylate (Norvasc) 10 mg PO DAILY [facility] Last Admin: 11/08/17 09:33 Dose: 10 mg Aspirin (Aspirin) 325 mg PO DAILY [facility] Last Admin: 11/08/17 09:33 Dose: 325 mg Docusate Sodium (Colace) 100 mg PO DAILY [facility] Last Admin: 11/08/17 09:33 Dose: 100 mg Famotidine (Pepcid) 20 mg PO BID [facility] Last Admin: 11/08/17 09:33 Dose: 20 mg Hydromorphone/Sodium Chloride (Dilaudid Human Resources Hr Generalist) 0.2 mg IV Q4H PRN; Protocol PRN Reason: Pain, moderate (4-7) Last Admin: 11/07/17 16:09 Dose: 0.2 mg Hydroxyurea (Hydrea) 500 mg PO BID [facility] Last Admin: 11/08/17 09:33 Dose: 500 mg Sodium Chloride (Sodium Chloride 0.45%) 1,000 mls @ 80 mls/hr IV .[id number] [facility] Stop: 11/08/17 16:00 Last Admin: 11/08/17 04:55 Dose: 80 mls/hr Heparin Sodium/Sodium Chloride (Heparin 08880 Units/250ml 1/2 Normal Saline) 25 ,000 units in 250 mls @ 15.331 mls/hr IV .[id number] PRN; Protocol; 20 UNITS/KG/HR PRN Reason: PROTOCOL Last Admin: 11/07/17 23:15 Dose: 20 units/kg/hr, 15.331 mls/hr Losartan Potassium (Cozaar) 25 mg PO DAILY [facility] Last Admin: 11/08/17 09:33 Dose: 25 mg - Labs Labs: 11/08/17 05:18 11/08/17 05:18 PT 13.1 SECONDS (9.7-12.2) H 11/03/17 17:21 INR 1.1 11/03/17 17:21 APTT 83 SECONDS (21-34) H D 11/08/17 05:18 - Additional Findings Additional findings: - Constitutional Appears: No Acute Distress - Head Exam Head Exam: ATRAUMATIC, NORMAL INSPECTION - Eye Exam Eye Exam: EOMI, Normal appearance - ENT Exam ENT Exam: Mucous Membranes Moist - Respiratory Exam Respiratory Exam: Clear to Ausculation Bilateral, NORMAL BREATHING PATTERN. absent: Rales, Rhonchi, Wheezes, Respiratory Distress - Cardiovascular Exam Cardiovascular Exam: Murmur, REGULAR RHYTHM, +S1, +S2 - GI/Abdominal Exam GI & Abdominal Exam: Soft, Normal Bowel Sounds. absent: Distended, Firm, Tenderness - Extremities Exam Extremities Exam: absent: Normal Inspection Additional comments: left LE- no palpable pulses; gangrene on digits 1-4 of left foot; painful to palpation. right LE- no palpable pulses, sensation intact; dressing clean,dry, intact - Neurological Exam Neurological Exam: Alert, Awake, Oriented x3 - Psychiatric Exam Psychiatric exam: Normal Affect, Normal Mood - Skin Skin Exam: Dry, Intact, Warm Assessment and Plan - Assessment and Plan (Free Text) Plan: 72 year old female with a past medical history of thrombocytosis and hypertension who is admitted for gangrene of the left foot. Plan: 1.Gangrene of the left foot * Patient seen at Dr. Pierre's and Cholo's office on 11/03/17 were it was cleaned, soaked and re-bandaged. She was referred to the emergency room due to the severity. * Lower extremity duplex showed occlusion of the left popliteal and anterior tibial * Heparin Bolus given in the emergency department. Heparin drip started in the emergency department afterwards. * Heparin drip continued * Percocet prn for pain * Dr. Pierre consulted. 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 Marcial, consulted; help appreciated 2.Hypertensive urgency * BP upon admission 225/108. * Patient normal range of SBP is in the 160's. Patient is asymptomatic upon examination. * Clonindine .2mg given in the Emergency room. * DIScontinued Cardizem 60mg Q8 (increased from 30mg on 11/06/17) * Holding parameters: BP less than 140 * Started Amlopdipine 10mg PO daily and Losartan 25mg PO daily * Heart healthy diet (2g Na restriction) * Cardiology consulted, Dr. Gan; help appreciated * Patient went for cardiac cath on 11/07: follow up report * Echo: f/u official report * Patient was scheduled for stress test on 11/08; however, patient refused. 3.Thrombocytosis * 850 upon admission; trending down * Safety Analyst consulted, Dr. Aguilar; help appreciated * Dr. Aguilar started patient on Hydera 500mg PO BID on 11/06/17. Prophylaxis: * Pepcid 20mg BID * NO SCDs * Heparin Drip * Heart Healthy diet Dispo: Patient refused stress test with Dr. Gan on 11/08/17. Started on Amlodipine 10mg PO daily and Losartan 25mg PO daily, and discontinued Cardizem on 11/07/17. Podiatry consulted. Angio results pending. Will discuss with Dr. Gallegos.
--- NOTE | 2017-11-08 12:33 | CARD ---
APPROVED REPORT EXAM: Two-dimensional and M-mode echocardiogram with Doppler and color Doppler. Other Information Quality : GoodRhythm : INDICATION Murmur 2D DIMENSIONS IVSd1.9 (0.7-1.1cm)LVDd4.4 (3.9-5.9cm) PWd1.6 (0.7-1.1cm) M-Mode DIMENSIONS Left Atrium (MM)4.20 (2.5-4.0cm)IVSd1.60 (0.7-1.1cm) Aortic Root2.74 (2.2-3.7cm)LVDd4.10 (4.0-5.6cm) Aortic Cusp Exc.1.42 (1.5-2.0cm)PWd1.91 (0.7-1.1cm) FS (%) 36 %LVDs2.64 (2.0-3.8cm) LVEF (%)66 (>50%) Aortic Valve AoV Peak Kutxjygu750.8cm/sAoV VTI66.7cmAO Peak GR.19mmHg LVOT Peak Gafbftmr75.6cm/sLVOT VTI26.60cmAO Mean GR.11mmHg Mitral Valve MV E Meaffnzl77.3cm/sMV A Tnorbfgg054.6cm/sE/A ratio0.8 TDI E/Lateral E'0.0E/Medial E'0.0 Tricuspid Valve TR Peak Baqimjbv479cw/sTR Peak Gr.18mmHg LEFT VENTRICLE The left ventricle is normal size. There is moderate to severe concentric left ventricular hypertrophy. The left ventricular function is normal. The left ventricular ejection fraction is within the normal range. There is normal LV segmental wall motion. Tissue Doppler imaging reveals mild left ventricular diastolic dysfunction. Transmitral Doppler flow pattern is Grade I-abnormal relaxation pattern. No left ventricle thrombus noted on this study. There is no ventricular septal defect visualized. There is no left ventricular aneurysm. There is no mass noted in the left ventricle. RIGHT VENTRICLE The right ventricle is normal size. There is normal right ventricular wall thickness. The right ventricular systolic function is normal. ATRIA The left atrium is mildly dilated. The right atrium size is normal. The interatrial septum is intact with no evidence for an atrial septal defect. AORTIC VALVE The aortic valve is moderately calcified. No aortic regurgitation is present. There is no aortic valvular stenosis. There is no aortic valvular vegetation. MITRAL VALVE The mitral valve is normal in structure. There is no mitral valve stenosis. Mitral regurgitation is trace to mild. TRICUSPID VALVE The tricuspid valve is normal in structure. There is no tricuspid valve regurgitation noted. PULMONIC VALVE The pulmonary valve is normal in structure. There is no pulmonic valvular regurgitation. GREAT VESSELS The aortic root is normal in size. The ascending aorta is normal in size. The pulmonary artery is normal. PERICARDIAL EFFUSION There is no pericardial effusion. <Conclusion> There is moderate to severe concentric left ventricular hypertrophy. Tissue Doppler imaging reveals mild left ventricular diastolic dysfunction. Transmitral Doppler flow pattern is Grade I-abnormal relaxation pattern. The left atrium is mildly dilated. Mitral regurgitation is trace to mild. HHD WITH LV EF OF 66%.
[2017-11-08] MEDS: Heparin25000 units/250ml 1/2NS 25,000 UNITS/250 ML BAG IV PRN (14:37)
--- NOTE | 2017-11-08 20:38 | CP.PCM.PN ---
Subjective - Date & Time of Evaluation Date of Evaluation: 11/08/17 Time of Evaluation: 12:30 - Subjective Subjective: Podiatry Progress Note - Dr. Marcial 72 year old female seen at bedside for left foot gangrene. Pt is resting comfortably at time of visit. Pt reports intermittent, non radiating left foot pain, she reports is well managed to a 4/10 with pain medication. Pt denies and acute overnight events. Deneis recent f/c/cp/sob/n/v. Objective - Vital Signs/Intake and Output Vital Signs (last 24 hours): Temp Pulse Resp BP Pulse Ox 98.0 F 79 20 149/74 95 11/08/17 15:21 11/08/17 15:21 11/08/17 15:21 11/08/17 15:21 11/08/17 15:21 Intake and Output: 11/08/17 11/09/17 18:59 06:59 Intake Total 1262.4 Balance 1262.4 - Medications Medications: Current Medications Acetaminophen (Tylenol 325mg Tab) 650 mg PO Q6 PRN PRN Reason: Pain, moderate (4-7) Last Admin: 11/06/17 12:25 Dose: 650 mg Amlodipine Besylate (Norvasc) 10 mg PO DAILY [facility]PLAC[facility] BY [facility] Last Admin: 11/08/17 09:33 Dose: 10 mg Aspirin (Aspirin) 325 mg PO DAILY [facility] BY [facility] Last Admin: 11/08/17 09:33 Dose: 325 mg Docusate Sodium (Colace) 100 mg PO DAILY [facility]PL[facility] BY [facility] Last Admin: 11/08/17 09:33 Dose: 100 mg Famotidine (Pepcid) 20 mg PO BID REPLACED BY [facility] Last Admin: 11/08/17 19:36 Dose: 20 mg Hydromorphone/Sodium Chloride (Dilaudid Artist Scientific) 6 mg IV Q4H PRN; Protocol PRN Reason: Pain, moderate (4-7) Last Admin: 11/08/17 13:27 Dose: 6 mg Hydroxyurea (Hydrea) 500 mg PO BID REPLACED BY [facility] Last Admin: 11/08/17 19:36 Dose: 500 mg Heparin Sodium/Sodium Chloride (Heparin 26399 Units/250ml 1/2 Normal Saline) 25 ,000 units in 250 mls @ 15.331 mls/hr IV .[id number] PRN; Protocol; 20 UNITS/KG/HR PRN Reason: PROTOCOL Last Admin: 11/08/17 14:37 Dose: 20 units/kg/hr, 15.331 mls/hr Losartan Potassium (Cozaar) 25 mg PO DAILY [facility] Last Admin: 11/08/17 09:33 Dose: 25 mg - Labs Labs: 11/08/17 05:18 11/08/17 05:18 PT 13.1 SECONDS (9.7-12.2) H 11/03/17 17:21 INR 1.1 11/03/17 17:21 APTT 50 SECONDS (21-34) H D 11/08/17 11:25 - Constitutional Appears: Well, Non-toxic, No Acute Distress - Extremities Exam Additional comments: Left lower extremity focused. Dressing clean, dry, and intact. VASC: DP and PT pulses weakly palpable, graded 1/4. Temperature runs warm to cool proximal to distal within normal limits. No capillary refill time absnet to central 3 digits and < 5 seconds to 1st and 5th digit. DERM: Left foot with blackend skin extending from lateral 1st digit to medial 4th digit including interspaces. Forefoot ischemic rbound erythem anoted. Full thickness ulceration with fibrotic nexrotic wound bases. Noted heavy gentian sarah staining impairing ability to accurately note necrotic vs fibrotic tissue percentage. Mild srous discharge noted. - Neurological Exam Neurological Exam: Alert, Awake, Oriented x3 Assessment and Plan - Assessment and Plan (Free Text) Assessment: 72 year old with 1) left foot Pineda grade 4 ulceration/ forefoot wet gangrene secondary to PAD. 2) Left Popliteal vein DVT 3) Thrrombocytosis. Plan: Pt seen and evaluated. Discussed with attending, Dr. Marcial. Chart, Labs, and vitals reviewed. Afebrile, Afebrile, absent leukocytosis. Platlet count =701 Cleansed wound site with sterile saline, Dressed with Telfa and DSD. Reviewed Arterial duplex, venous duplex, and CTA results. Discussed with Dr. Pierre s/p angiogram, potential bypass indicated. Awaiting further intervention and recommendations. Continue Heparin Drip DVT prophylaxis. Continue pain control. Potential podiatric surgery intervention indicated, awaiting final vascular intervention to reperfuse left lower extremity. Podiatry will continue to follow this patient while inhouse.
--- NOTE | 2017-11-08 20:52 | CP.PCM.PN ---
Subjective - Date & Time of Evaluation Date of Evaluation: 11/08/17 Time of Evaluation: 06:45 - Subjective Subjective: Vascular Surgery- Dr. Pierre Patient seen and examined at bedside this AM. No acute complaints. Angioperformed yesterday. Puncture site Clean and intact, no signs of hematoma. tolerating diet. Denies F/C CP/SOB N/V/D Objective - Vital Signs/Intake and Output Vital Signs (last 24 hours): Temp Pulse Resp BP Pulse Ox 98.0 F 79 20 149/74 95 11/08/17 15:21 11/08/17 15:21 11/08/17 15:21 11/08/17 15:21 11/08/17 15:21 Intake and Output: 11/08/17 11/09/17 18:59 06:59 Intake Total 1262.4 Balance 1262.4 - Medications Medications: Current Medications Acetaminophen (Tylenol 325mg Tab) 650 mg PO Q6 PRN PRN Reason: Pain, moderate (4-7) Last Admin: 11/06/17 12:25 Dose: 650 mg Amlodipine Besylate (Norvasc) 10 mg PO DAILY [facility] Last Admin: 11/08/17 09:33 Dose: 10 mg Aspirin (Aspirin) 325 mg PO DAILY [facility] Last Admin: 11/08/17 09:33 Dose: 325 mg Docusate Sodium (Colace) 100 mg PO DAILY [facility] Last Admin: 11/08/17 09:33 Dose: 100 mg Famotidine (Pepcid) 20 mg PO BID [facility] Last Admin: 11/08/17 19:36 Dose: 20 mg Hydromorphone/Sodium Chloride (Dilaudid Gas Jockey) 6 mg IV Q4H PRN; Protocol PRN Reason: Pain, moderate (4-7) Last Admin: 11/08/17 13:27 Dose: 6 mg Hydroxyurea (Hydrea) 500 mg PO BID [facility] Last Admin: 11/08/17 19:36 Dose: 500 mg Heparin Sodium/Sodium Chloride (Heparin 91403 Units/250ml 1/2 Normal Saline) 25 ,000 units in 250 mls @ 15.331 mls/hr IV .[id number] PRN; Protocol; 20 UNITS/KG/HR PRN Reason: PROTOCOL Last Admin: 11/08/17 14:37 Dose: 20 units/kg/hr, 15.331 mls/hr Losartan Potassium (Cozaar) 25 mg PO DAILY [facility] Last Admin: 11/08/17 09:33 Dose: 25 mg - Labs Labs: 11/08/17 05:18 11/08/17 05:18 PT 13.1 SECONDS (9.7-12.2) H 11/03/17 17:21 INR 1.1 11/03/17 17:21 APTT 50 SECONDS (21-34) H D 11/08/17 11:25 - Constitutional Appears: Non-toxic, No Acute Distress - Eye Exam Eye Exam: EOMI. absent: Scleral icterus - ENT Exam ENT Exam: Mucous Membranes Moist - Respiratory Exam Respiratory Exam: NORMAL BREATHING PATTERN. absent: Accessory Muscle Use, Respiratory Distress - Cardiovascular Exam Cardiovascular Exam: +S1, +S2. absent: Bradycardia, Tachycardia - GI/Abdominal Exam GI & Abdominal Exam: Soft. absent: Distended, Firm, Guarding, Rigid, Tenderness - Extremities Exam Additional comments: LLE dressing C/D/I - Neurological Exam Neurological Exam: Alert, Awake, Oriented x3 Assessment and Plan - Assessment and Plan (Free Text) Assessment: 72F s/p Aortofemoral angiography of Left femoral Artery POD #1 Plan: - limited LLE perhipheral vascular patency - c/w heparin drip - patient may benefit from amputation * further discussion w/ podiatry and surgical team - medical management per primary team - discussed w/ Dr. Gabby Padilla PGY1
--- NOTE | 2017-11-08 21:43 | CP.PCM.PN ---
Subjective - Date & Time of Evaluation Date of Evaluation: 11/08/17 Time of Evaluation: 16:05 - Subjective Subjective: Patient seen and evaluated Patient declined stress test Physical Examination - Additional Findings Additional findings: - Constitutional Appears: No Acute Distress - Head Exam Head Exam: ATRAUMATIC, NORMAL INSPECTION - Eye Exam Eye Exam: EOMI, Normal appearance - ENT Exam ENT Exam: Mucous Membranes Moist - Respiratory Exam Respiratory Exam: Clear to Ausculation Bilateral, NORMAL BREATHING PATTERN. absent: Rales, Rhonchi, Wheezes, Respiratory Distress - Cardiovascular Exam Cardiovascular Exam: Murmur, REGULAR RHYTHM, +S1, +S2 - GI/Abdominal Exam GI & Abdominal Exam: Soft, Normal Bowel Sounds. absent: Distended, Firm, Tenderness - Extremities Exam Extremities Exam: absent: Normal Inspection Additional comments: left LE- no palpable pulses; gangrene on digits 1-4 of left foot; painful to palpation. right LE- no palpable pulses, sensation intact; - Neurological Exam Neurological Exam: Alert, Awake, Oriented x3 - Psychiatric Exam Psychiatric exam: Normal Affect, Normal Mood - Skin Skin Exam: Dry, Intact, Warm Objective - Vital Signs/Intake and Output Vital Signs (last 24 hours): Temp Pulse Resp BP Pulse Ox 98.0 F 79 20 149/74 95 11/08/17 15:21 11/08/17 15:21 11/08/17 15:21 11/08/17 15:21 11/08/17 15:21 Intake and Output: 11/08/17 11/09/17 18:59 06:59 Intake Total 1262.4 Balance 1262.4 - Medications Medications: Current Medications Acetaminophen (Tylenol 325mg Tab) 650 mg PO Q6 PRN PRN Reason: Pain, moderate (4-7) Last Admin: 11/06/17 12:25 Dose: 650 mg Amlodipine Besylate (Norvasc) 10 mg PO DAILY [facility] Last Admin: 11/08/17 09:33 Dose: 10 mg Aspirin (Aspirin) 325 mg PO DAILY [facility] Last Admin: 11/08/17 09:33 Dose: 325 mg Docusate Sodium (Colace) 100 mg PO DAILY [facility] Last Admin: 11/08/17 09:33 Dose: 100 mg Famotidine (Pepcid) 20 mg PO BID [facility] Last Admin: 11/08/17 19:36 Dose: 20 mg Hydromorphone/Sodium Chloride (Dilaudid Recreation Attendant) 6 mg IV Q4H PRN; Protocol PRN Reason: Pain, moderate (4-7) Last Admin: 11/08/17 13:27 Dose: 6 mg Hydroxyurea (Hydrea) 500 mg PO BID [facility] Last Admin: 11/08/17 19:36 Dose: 500 mg Heparin Sodium/Sodium Chloride (Heparin 21005 Units/250ml 1/2 Normal Saline) 25 ,000 units in 250 mls @ 15.331 mls/hr IV .[id number] PRN; Protocol; 20 UNITS/KG/HR PRN Reason: PROTOCOL Last Admin: 11/08/17 14:37 Dose: 20 units/kg/hr, 15.331 mls/hr Lidocaine/Prilocaine (Emla) 1 gm TOP DAILY [facility] Losartan Potassium (Cozaar) 25 mg PO DAILY [facility] Last Admin: 11/08/17 09:33 Dose: 25 mg - Labs Labs: 11/08/17 05:18 11/08/17 05:18 PT 13.1 SECONDS (9.7-12.2) H 11/03/17 17:21 INR 1.1 11/03/17 17:21 APTT 50 SECONDS (21-34) H D 11/08/17 11:25 Assessment and Plan - Assessment and Plan (Free Text) Assessment: ECHO: LVH and Normal EF. Mild to moderate Patient likely needs BKA as per Vascular Patient declined stress test HTN controlled with Amlodepine and Losartan
--- NOTE | 2017-11-08 22:22 | CARD ---
APPROVED REPORT EKG Measurement Heart [id number] <Conclusion> Normal sinus rhythm Possible Left atrial enlargement Left axis deviation T wave abnormality, consider anterior ischemia Abnormal ECG
[2017-11-09 06:42] LABS: BASO # 0.1 K/uL (0.0-0.2); BASO % 0.5 % (0.0-2.0); EOS # 0.3 K/uL (0.0-0.7); EOS % 2.4 % (0.0-4.0); HEMOGLOBIN 17.5 g/dL (11.0-16.0); LYMPH # 1.3 K/uL (1.0-4.3); LYMPH % 10.5 % (20.0-40.0); MEAN CELL VOLUME 94.5 fL (81.0-99.0); MEAN CORPUSCULAR HEMOGLOBIN 32.5 pg (27.0-31.0); MEAN CORPUSCULAR HGB CONC 34.3 g/dL (33.0-37.0); MEAN PLATELET VOLUME 9.3 fL (7.2-11.7); MONO # 1.2 K/uL (0.0-0.8); MONO % 9.5 % (0.0-10.0); NEUT # 9.6 K/uL (1.8-7.0); NEUT % 77.1 % (50.0-75.0); RBC 5.4 Mil/uL (3.80-5.20); RED CELL DISTRIBUTION WIDTH 14.6 % (11.5-14.5); WHITE BLOOD COUNT 12.5 K/uL (4.8-10.8)
--- NOTE | 2017-11-09 07:03 | CP.PCM.PN ---
Subjective - Date & Time of Evaluation Date of Evaluation: 11/09/17 Time of Evaluation: 07:03 - Subjective Subjective: Medicine progress note for Dr. Gallegos's service Patient was seen and examined at bedside in no acute distress. Patient states she feels okay, still has pain in her foot, but the pain medication relieved her symptoms. Patient denies chest pain, abdominal pain, nausea, vomiting, fevers, headaches. Objective - Vital Signs/Intake and Output Vital Signs (last 24 hours): Temp Pulse Resp BP Pulse Ox 98.1 F 77 20 174/95 H 96 11/09/17 04:00 11/09/17 04:00 11/09/17 04:00 11/09/17 06:27 11/09/17 06:34 Intake and Output: 11/09/17 11/09/17 06:59 18:59 Intake Total 1322.4 Balance 1322.4 - Medications Medications: Current Medications Acetaminophen (Tylenol 325mg Tab) 650 mg PO Q6 PRN PRN Reason: Pain, moderate (4-7) Last Admin: 11/06/17 12:25 Dose: 650 mg Amlodipine Besylate (Norvasc) 10 mg PO DAILY [facility] Last Admin: 11/08/17 09:33 Dose: 10 mg Aspirin (Aspirin) 325 mg PO DAILY [facility] Last Admin: 11/08/17 09:33 Dose: 325 mg Docusate Sodium (Colace) 100 mg PO DAILY [facility] Last Admin: 11/08/17 09:33 Dose: 100 mg Famotidine (Pepcid) 20 mg PO BID [facility] Last Admin: 11/08/17 19:36 Dose: 20 mg Hydromorphone/Sodium Chloride (Dilaudid Fish Receiver) 6 mg IV Q4H PRN; Protocol PRN Reason: Pain, moderate (4-7) Last Admin: 11/08/17 13:27 Dose: 6 mg Hydroxyurea (Hydrea) 500 mg PO BID [facility] Last Admin: 11/08/17 19:36 Dose: 500 mg Heparin Sodium/Sodium Chloride (Heparin 10707 Units/250ml 1/2 Normal Saline) 25 ,000 units in 250 mls @ 15.331 mls/hr IV .[id number] PRN; Protocol; 20 UNITS/KG/HR PRN Reason: PROTOCOL Last Admin: 11/08/17 14:37 Dose: 20 units/kg/hr, 15.331 mls/hr Lidocaine/Prilocaine (Emla) 1 gm TOP DAILY [facility] Losartan Potassium (Cozaar) 25 mg PO DAILY [facility] Last Admin: 11/08/17 09:33 Dose: 25 mg - Labs Labs: 11/09/17 06:23 11/08/17 05:18 PT 13.1 SECONDS (9.7-12.2) H 11/03/17 17:21 INR 1.1 11/03/17 17:21 APTT 50 SECONDS (21-34) H D 11/08/17 11:25 - Additional Findings Additional findings: - Constitutional Appears: No Acute Distress - Head Exam Head Exam: ATRAUMATIC, NORMAL INSPECTION - Eye Exam Eye Exam: EOMI, Normal appearance - ENT Exam ENT Exam: Mucous Membranes Moist - Respiratory Exam Respiratory Exam: Clear to Ausculation Bilateral, NORMAL BREATHING PATTERN. absent: Rales, Rhonchi, Wheezes, Respiratory Distress - Cardiovascular Exam Cardiovascular Exam: Murmur, REGULAR RHYTHM, +S1, +S2 - GI/Abdominal Exam GI & Abdominal Exam: Soft, Normal Bowel Sounds. absent: Distended, Firm, Tenderness - Extremities Exam Extremities Exam: absent: Normal Inspection Additional comments: left LE- no palpable pulses; gangrene on digits 1-4 of left foot; painful to palpation. right LE- no palpable pulses, sensation intact; dressing clean,dry, intact - Neurological Exam Neurological Exam: Alert, Awake, Oriented x3 - Psychiatric Exam Psychiatric exam: Normal Affect, Normal Mood - Skin Skin Exam: Dry, Intact, Warm Assessment and Plan - Assessment and Plan (Free Text) Plan: 72 year old female with a past medical history of thrombocytosis and hypertension who is admitted for gangrene of the left foot. Plan: 1.Gangrene of the left foot * Patient seen at Dr. Pierre's and Cholo's office on 11/03/17 were it was cleaned, soaked and re-bandaged. She was referred to the emergency room due to the severity. * Lower extremity duplex showed occlusion of the left popliteal and anterior tibial * Heparin Bolus given in the emergency department. Heparin drip started in the emergency department afterwards. * Heparin drip continued * Percocet prn for pain * Dr. Pierre consulted. 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 Marcial, consulted; help appreciated 2.Hypertensive urgency * BP upon admission 225/108. * Patient normal range of SBP is in the 160's. Patient is asymptomatic upon examination. * Clonindine .2mg given in the Emergency room. * DIScontinued Cardizem 60mg Q8 (increased from 30mg on 11/06/17) * Holding parameters: BP less than 140 * Started Amlodipine 10mg PO daily and Losartan 25mg PO daily * Heart healthy diet (2g Na restriction) * Cardiology consulted, Dr. Gan; help appreciated * Patient went for cardiac cath on 11/07: follow up report * Echo: moderate-severe concentric LVH; mild LV diastolic dysfunction; mildly dilated LA; trace to mild MR; LVEF 66% * Patient was scheduled for stress test on 11/08; however, patient refused. 3.Thrombocytosis * 850 upon admission; trending down * Brazing Furnace Operator consulted, Dr. Aguilar; help appreciated * Dr. Aguilar started patient on Hydera 500mg PO BID on 11/06/17. Prophylaxis: * Pepcid 20mg BID * NO SCDs * Heparin Drip * Heart Healthy diet Dispo: Patient refused stress test with Dr. Gan on 11/08/17. Started on Amlodipine 10mg PO daily and Losartan 25mg PO daily, and discontinued Cardizem on 11/07/17. Podiatry consulted. Angio results pending. Will discuss with Dr. Gallegos.
[2017-11-09 07:40] LABS: ALB/GLOB RATIO 1.1 (1.0-2.1); ALBUMIN 3.2 g/dL (3.5-5.0); ALT/SGPT 19 U/L (9-52); AST/SGOT 29 U/L (14-36); BLOOD UREA NITROGEN 17 mg/dL (7-17); CALCIUM 9.1 mg/dl (8.6-10.4); GFR AFRICAN-AMERICAN > 60; GFR NON-AFRICAN AMERICAN > 60; MAGNESIUM 1.8 mg/dL (1.6-2.3)
--- NOTE | 2017-11-09 09:49 | CP.PCM.PN ---
Subjective - Date & Time of Evaluation Date of Evaluation: 11/09/17 Time of Evaluation: 06:35 - Subjective Subjective: Vascular Surgery Pt S&E, NAEO. No acute complaints Objective - Vital Signs/Intake and Output Vital Signs (last 24 hours): Temp Pulse Resp BP Pulse Ox 98.5 F 80 20 179/81 H 97 11/09/17 07:49 11/09/17 07:49 11/09/17 07:49 11/09/17 07:49 11/09/17 07:49 Intake and Output: 11/09/17 11/09/17 06:59 18:59 Intake Total 1322.4 Balance 1322.4 - Medications Medications: Current Medications Acetaminophen (Tylenol 325mg Tab) 650 mg PO Q6 PRN PRN Reason: Pain, moderate (4-7) Last Admin: 11/06/17 12:25 Dose: 650 mg Amlodipine Besylate (Norvasc) 10 mg PO DAILY [facility] Last Admin: 11/08/17 09:33 Dose: 10 mg Aspirin (Aspirin) 325 mg PO DAILY [facility] Last Admin: 11/08/17 09:33 Dose: 325 mg Docusate Sodium (Colace) 100 mg PO DAILY [facility] Last Admin: 11/08/17 09:33 Dose: 100 mg Famotidine (Pepcid) 20 mg PO BID [facility] Last Admin: 11/08/17 19:36 Dose: 20 mg Hydromorphone/Sodium Chloride (Dilaudid Drug Safety Associate) 6 mg IV Q4H PRN; Protocol PRN Reason: Pain, moderate (4-7) Last Admin: 11/08/17 13:27 Dose: 6 mg Hydroxyurea (Hydrea) 500 mg PO BID [facility] Last Admin: 11/08/17 19:36 Dose: 500 mg Heparin Sodium/Sodium Chloride (Heparin 72834 Units/250ml 1/2 Normal Saline) 25 ,000 units in 250 mls @ 15.331 mls/hr IV .[id number] PRN; Protocol; 20 UNITS/KG/HR PRN Reason: PROTOCOL Last Admin: 11/08/17 14:37 Dose: 20 units/kg/hr, 15.331 mls/hr Lidocaine/Prilocaine (Emla) 1 gm TOP DAILY [facility] Losartan Potassium (Cozaar) 25 mg PO DAILY [facility] Last Admin: 11/08/17 09:33 Dose: 25 mg - Labs Labs: 11/09/17 06:23 11/09/17 06:23 PT 13.1 SECONDS (9.7-12.2) H 11/03/17 17:21 INR 1.1 11/03/17 17:21 APTT 65 SECONDS (21-34) H D 11/09/17 06:23 - Constitutional Appears: Non-toxic, No Acute Distress - Eye Exam Eye Exam: EOMI. absent: Scleral icterus - Respiratory Exam Respiratory Exam: NORMAL BREATHING PATTERN. absent: Respiratory Distress - GI/Abdominal Exam GI & Abdominal Exam: Soft. absent: Distended, Guarding, Tenderness - Extremities Exam Additional comments: LLE dressing D/I. - Neurological Exam Neurological Exam: Alert, Awake - Skin Skin Exam: Dry, Warm Assessment and Plan - Assessment and Plan (Free Text) Assessment: 72F s/p Aortofemoral angiography of LLE POD #2 Plan: - limited L foot vascular patency, major vessel flow to level of ankle. Vascular bypass to ankle may not increase flow to foot - patient may benefit from amputation, Ankle vs BKA - Wound care per Podiatry - medical management per primary team D/W Dr. Gabby Sparks PGY4
[2017-11-09] MEDS: Lidocaine/Prilocaine 2.5%-2.5% Cream (5 gm) TOP SCH (10:36)
[2017-11-09] MEDS: Heparin25000 units/250ml 1/2NS 25,000 UNITS/250 ML BAG IV PRN (13:29)
--- NOTE | 2017-11-09 18:46 | PCM.FALL ---
Post Fall Progress Note - Post Fall Fall Date: 11/09/17 Fall Time: 17:03 Description of Fall: Patient stood up from chair, knees felt weak, and patient slowly fell to the ground, landing in sitting position. Patient denies hitting any specific location on her body and denies pain. She denies feeling dizzy, vision changes, chest pain, shortness of breath, nausea, vomiting. - Post Fall Exam Vital Sign: Temp Pulse Resp BP Pulse Ox 97.6 F 75 18 144/81 95 11/09/17 15:24 11/09/17 15:24 11/09/17 15:24 11/09/17 15:24 11/09/17 15:24 Eye Exam: Positive for: Pupils equal Skin Exam: Negative for: Colour, Lacerations, Grazes, Bruising Chest Exam: Negative for: Difficulty breathing Abdomen Exam: Negative for: Tenderness Impression/Plan: As per patient, patient stood up from chair, knees felt weak, and patient slowly fell to the ground, landing in sitting position. Patient denies hitting any specific location on her body and denies pain. She denies feeling dizzy, vision changes, chest pain, shortness of breath, nausea, vomiting. Vitals were taken: BP 156/83, O2 99, HR 88, T98.8F. Patient was examined- no contusions, abrasions, or skin changes, no tenderness with superficial and deep palpation. Patient transferred to the bed. Patient again denies dizziness, nausea, shortness of breath, palpitations, chest pain.
--- NOTE | 2017-11-09 22:13 | CP.PCM.PN ---
Subjective - Date & Time of Evaluation Date of Evaluation: 11/09/17 Time of Evaluation: 11:00 - Subjective Subjective: Podiatry Progress Note - Dr. Marcial 72 year old female seen at bedside, with attending Dr. Marcial, for left foot gangrene. Pt is resting comfortably at time of visit, accompaniedby sister. Pt reports intermittent, non radiating left foot pain, she reports is well managed to a 4/10 with pain medication. Pt denies and acute overnight events. Denies recent f/c/cp/sob/n/v Objective - Vital Signs/Intake and Output Vital Signs (last 24 hours): Temp Pulse Resp BP Pulse Ox 97.6 F 75 18 144/81 95 11/09/17 15:24 11/09/17 15:24 11/09/17 15:24 11/09/17 15:24 11/09/17 15:24 Intake and Output: 11/09/17 11/10/17 18:59 06:59 Intake Total 422.64 Balance 422.64 - Medications Medications: Current Medications Acetaminophen (Tylenol 325mg Tab) 650 mg PO Q6 PRN PRN Reason: Pain, moderate (4-7) Last Admin: 11/06/17 12:25 Dose: 650 mg Amlodipine Besylate (Norvasc) 10 mg PO DAILY [facility] Last Admin: 11/09/17 10:36 Dose: 10 mg Aspirin (Aspirin) 325 mg PO DAILY [facility] Last Admin: 11/09/17 10:36 Dose: 325 mg Docusate Sodium (Colace) 100 mg PO DAILY [facility] Last Admin: 11/09/17 10:36 Dose: 100 mg Famotidine (Pepcid) 20 mg PO BID [facility] Last Admin: 11/09/17 17:59 Dose: 20 mg Hydromorphone/Sodium Chloride (Dilaudid Armament Installer) 6 mg IV Q4H PRN; Protocol PRN Reason: Pain, moderate (4-7) Last Admin: 11/08/17 13:27 Dose: 6 mg Hydroxyurea (Hydrea) 500 mg PO BID [facility] Last Admin: 11/09/17 17:59 Dose: 500 mg Heparin Sodium/Sodium Chloride (Heparin 20723 Units/250ml 1/2 Normal Saline) 25 ,000 units in 250 mls @ 15.331 mls/hr IV .[id number] PRN; Protocol; 20 UNITS/KG/HR PRN Reason: PROTOCOL Last Admin: 11/09/17 13:29 Dose: 20 units/kg/hr, 15.331 mls/hr Lidocaine/Prilocaine (Emla) 1 gm TOP DAILY [facility] Last Admin: 11/09/17 10:36 Dose: 1 gm Losartan Potassium (Cozaar) 25 mg PO DAILY [facility] Last Admin: 11/09/17 10:36 Dose: 25 mg - Labs Labs: 11/09/17 06:23 11/09/17 06:23 PT 13.1 SECONDS (9.7-12.2) H 11/03/17 17:21 INR 1.1 11/03/17 17:21 APTT 65 SECONDS (21-34) H D 11/09/17 06:23 - Constitutional Appears: Well, Non-toxic, No Acute Distress - Extremities Exam Additional comments: Left lower extremity focused. Dressing clean, dry, and intact. VASC: DP and PT pulses weakly palpable, graded 1/4. Temperature runs warm to cool proximal to distal within normal limits. No capillary refill time absnet to central 3 digits and < 5 seconds to 1st and 5th digit. DERM: Left foot with blackend skin extending from lateral 1st digit to medial 4th digit including interspaces. Forefoot ischemic rebound erythema noted. Full thickness ulceration with fibrotic wound base noted to dorsal foot proximal to digits meaduring 4 x 2 cm.. Mild serous discharge noted. - Neurological Exam Neurological Exam: Alert, Awake, Oriented x3 - Psychiatric Exam Psychiatric exam: Normal Affect, Normal Mood Assessment and Plan - Assessment and Plan (Free Text) Assessment: 72 year old with 1) left foot Pineda grade 4 ulceration/ forefoot wet gangrene secondary to PAD. 2) Left Popliteal vein DVT 3) Thrrombocytosis. Plan: Pt seen and evaluated with attending, Dr. Marcial present. Chart, Labs, and vitals reviewed. Afebrile, Afebrile, WBC= 12.5. Cleansed wound site with sterile saline, Dressed with Telfa and DSD. Vascular specialist,Dr. Pierre, present. Reviewed angioplasty results. Vascular patency, major vessel flow to level of ankle. Vascular bypass to ankle may not increase flow to foot and potential invilved complications. Extensive discussion had with patient from podiatric and vascular standpoint regarding options of surgical intervention and risks, benefits, complications, and potential prognosis of transmetatarsal leval amputation vs below knee level amputation based on pts general health and vascular findings. Discussed potential rehabilitation and post-operative course of either course. Pt processing options and has made no treatment decision at this time. Continue Heparin Drip DVT prophylaxis. Continue pain control. Podiatry will continue to follow this patient while inhouse.
--- NOTE | 2017-11-09 23:06 | CP.PCM.PN ---
Subjective - Date & Time of Evaluation Date of Evaluation: 11/09/17 Time of Evaluation: 11:30 - Subjective Subjective: D/W patient Agreed for stress test Stress test in am Physical Examination - Additional Findings Additional findings: - Constitutional Appears: No Acute Distress - Head Exam Head Exam: ATRAUMATIC, NORMAL INSPECTION - Eye Exam Eye Exam: EOMI, Normal appearance - ENT Exam ENT Exam: Mucous Membranes Moist - Respiratory Exam Respiratory Exam: Clear to Ausculation Bilateral, NORMAL BREATHING PATTERN. absent: Rales, Rhonchi, Wheezes, Respiratory Distress - Cardiovascular Exam Cardiovascular Exam: Murmur, REGULAR RHYTHM, +S1, +S2 - GI/Abdominal Exam GI & Abdominal Exam: Soft, Normal Bowel Sounds. absent: Distended, Firm, Tenderness - Extremities Exam Extremities Exam: absent: Normal Inspection Additional comments: left LE- no palpable pulses; gangrene on digits 1-4 of left foot; painful to palpation. right LE- no palpable pulses, sensation intact; - Neurological Exam Neurological Exam: Alert, Awake, Oriented x3 - Psychiatric Exam Psychiatric exam: Normal Affect, Normal Mood - Skin Skin Exam: Dry, Intact, Warm Objective - Vital Signs/Intake and Output Vital Signs (last 24 hours): Temp Pulse Resp BP Pulse Ox 97.6 F 75 18 144/81 95 11/09/17 15:24 11/09/17 15:24 11/09/17 15:24 11/09/17 15:24 11/09/17 15:24 Intake and Output: 11/09/17 11/10/17 18:59 06:59 Intake Total 422.64 Balance 422.64 - Medications Medications: Current Medications Acetaminophen (Tylenol 325mg Tab) 650 mg PO Q6 PRN PRN Reason: Pain, moderate (4-7) Last Admin: 11/06/17 12:25 Dose: 650 mg Amlodipine Besylate (Norvasc) 10 mg PO DAILY [facility] Last Admin: 11/09/17 10:36 Dose: 10 mg Aspirin (Aspirin) 325 mg PO DAILY [facility] Last Admin: 11/09/17 10:36 Dose: 325 mg Docusate Sodium (Colace) 100 mg PO DAILY [facility] Last Admin: 11/09/17 10:36 Dose: 100 mg Famotidine (Pepcid) 20 mg PO BID [facility] Last Admin: 11/09/17 17:59 Dose: 20 mg Hydromorphone/Sodium Chloride (Dilaudid Circle Beveler) 6 mg IV Q4H PRN; Protocol PRN Reason: Pain, moderate (4-7) Last Admin: 11/08/17 13:27 Dose: 6 mg Hydroxyurea (Hydrea) 500 mg PO BID [facility] Last Admin: 11/09/17 17:59 Dose: 500 mg Heparin Sodium/Sodium Chloride (Heparin 17817 Units/250ml 1/2 Normal Saline) 25 ,000 units in 250 mls @ 15.331 mls/hr IV .[id number] PRN; Protocol; 20 UNITS/KG/HR PRN Reason: PROTOCOL Last Admin: 11/09/17 13:29 Dose: 20 units/kg/hr, 15.331 mls/hr Lidocaine/Prilocaine (Emla) 1 gm TOP DAILY [facility] Last Admin: 11/09/17 10:36 Dose: 1 gm Losartan Potassium (Cozaar) 25 mg PO DAILY [facility] Last Admin: 11/09/17 10:36 Dose: 25 mg - Labs Labs: 11/09/17 06:23 11/09/17 06:23 PT 13.1 SECONDS (9.7-12.2) H 11/03/17 17:21 INR 1.1 11/03/17 17:21 APTT 65 SECONDS (21-34) H D 11/09/17 06:23 Assessment and Plan - Assessment and Plan (Free Text) Assessment: Assessment and Plan - Assessment and Plan (Free Text) Plan: 72 year old female with a past medical history of thrombocytosis and hypertension who is admitted for gangrene of the left foot. Plan: 1.Gangrene of the left foot * Mgt as per Dr. Pierre 2.Hypertension: Controlled 3.Thrombocytosis * Early Childhood Coordinator consulted, Dr. Aguilar; help appreciated Prophylaxis: * Pepcid 20mg BID * NO SCDs * Heparin
[2017-11-10 07:25] LABS: BASO # 0.1 K/uL (0.0-0.2); BASO % 0.5 % (0.0-2.0); EOS # 0.3 K/uL (0.0-0.7); EOS % 2.1 % (0.0-4.0); HEMOGLOBIN 17.9 g/dL (11.0-16.0); LYMPH # 1.2 K/uL (1.0-4.3); LYMPH % 8.6 % (20.0-40.0); MEAN CELL VOLUME 93.6 fL (81.0-99.0); MEAN CORPUSCULAR HEMOGLOBIN 32.6 pg (27.0-31.0); MEAN CORPUSCULAR HGB CONC 34.8 g/dL (33.0-37.0); MEAN PLATELET VOLUME 9.7 fL (7.2-11.7); MONO # 0.9 K/uL (0.0-0.8); MONO % 6.2 % (0.0-10.0); NEUT # 11.8 K/uL (1.8-7.0); NEUT % 82.6 % (50.0-75.0); NRBC % 0.1 % (0.0-2.0); PLATELET COUNT 625 K/uL (130-400); RED CELL DISTRIBUTION WIDTH 14.5 % (11.5-14.5); WHITE BLOOD COUNT 14.3 K/uL (4.8-10.8)
[2017-11-10 08:08] LABS: ALB/GLOB RATIO 1.1 (1.0-2.1); ALBUMIN 3.6 g/dL (3.5-5.0); ALT/SGPT 26 U/L (9-52); AST/SGOT 26 U/L (14-36); BLOOD UREA NITROGEN 17 mg/dL (7-17); CALCIUM 9.3 mg/dl (8.6-10.4); GFR AFRICAN-AMERICAN > 60; GFR NON-AFRICAN AMERICAN > 60; MAGNESIUM 1.8 mg/dL (1.6-2.3)
--- NOTE | 2017-11-10 08:22 | CP.PCM.PN ---
Subjective - Date & Time of Evaluation Date of Evaluation: 11/10/17 Time of Evaluation: 06:50 - Subjective Subjective: Vascular surgery progress note for Dr. Abdifatah Khan, PGY-1 Pt S & E at bedside. Pt sitting up in bed, continues to c/o of foot pain- re-inforced that she needs to use the PAINTING WORKER for pain. Pt upset regarding foot wound not being cleaned. No other complaints. Objective - Vital Signs/Intake and Output Vital Signs (last 24 hours): Temp Pulse Resp BP Pulse Ox 98.7 F 82 20 156/92 H 95 11/09/17 23:09 11/10/17 04:00 11/09/17 23:09 11/09/17 23:09 11/09/17 23:09 Intake and Output: 11/10/17 11/10/17 06:59 18:59 Intake Total 240 Balance 240 - Medications Medications: Current Medications Acetaminophen (Tylenol 325mg Tab) 650 mg PO Q6 PRN PRN Reason: Pain, moderate (4-7) Last Admin: 11/06/17 12:25 Dose: 650 mg Amlodipine Besylate (Norvasc) 10 mg PO DAILY [facility] Last Admin: 11/09/17 10:36 Dose: 10 mg Aspirin (Aspirin) 325 mg PO DAILY [facility] Last Admin: 11/09/17 10:36 Dose: 325 mg Docusate Sodium (Colace) 100 mg PO DAILY [facility] Last Admin: 11/09/17 10:36 Dose: 100 mg Famotidine (Pepcid) 20 mg PO BID [facility] Last Admin: 11/09/17 17:59 Dose: 20 mg Hydromorphone/Sodium Chloride (Dilaudid Underwriting Technician) 6 mg IV Q4H PRN; Protocol PRN Reason: Pain, moderate (4-7) Last Admin: 11/08/17 13:27 Dose: 6 mg Hydroxyurea (Hydrea) 500 mg PO BID [facility] Last Admin: 11/09/17 17:59 Dose: 500 mg Heparin Sodium/Sodium Chloride (Heparin 55765 Units/250ml 1/2 Normal Saline) 25 ,000 units in 250 mls @ 15.331 mls/hr IV .[id number] PRN; Protocol; 20 UNITS/KG/HR PRN Reason: PROTOCOL Last Admin: 11/09/17 13:29 Dose: 20 units/kg/hr, 15.331 mls/hr Lidocaine/Prilocaine (Emla) 1 gm TOP DAILY [facility] Last Admin: 11/09/17 10:36 Dose: 1 gm Losartan Potassium (Cozaar) 25 mg PO DAILY [facility] Last Admin: 11/09/17 10:36 Dose: 25 mg - Labs Labs: 11/10/17 07:05 11/10/17 07:05 PT 13.1 SECONDS (9.7-12.2) H 11/03/17 17:21 INR 1.1 11/03/17 17:21 APTT 79 SECONDS (21-34) H D 11/10/17 07:44 - Constitutional Appears: Non-toxic, No Acute Distress - Head Exam Head Exam: ATRAUMATIC, NORMAL INSPECTION, NORMOCEPHALIC - Eye Exam Eye Exam: EOMI, Normal appearance - ENT Exam ENT Exam: Mucous Membranes Moist, Normal Exam - Neck Exam Neck Exam: Full ROM, Normal Inspection - Respiratory Exam Respiratory Exam: NORMAL BREATHING PATTERN - Cardiovascular Exam Cardiovascular Exam: REGULAR RHYTHM, +S1, +S2 - Extremities Exam Extremities Exam: absent: Normal Inspection Additional comments: Right foot with dressing in place- clean/dry/intact - Neurological Exam Neurological Exam: Alert, Awake, CN II-XII Intact, Oriented x3 - Psychiatric Exam Psychiatric exam: Normal Affect, Normal Mood - Skin Skin Exam: Dry, Intact, Normal Color, Warm Assessment and Plan - Assessment and Plan (Free Text) Assessment: 72F s/p Aortofemoral angiography of LLE POD #3 Plan: Pain control For stress test today- PAINTING WORKER to be held during stress test Local wound care as per podiatry Pt may benefit from amputation ankle vs. BKA Will follow peripherally Please let surgery know if pt decides for BKA Further mgmt as per podiatry and primary team Will DW attending Erin, PGY-1
[2017-11-10] MEDS ORDERED: Aminophylline 25 mg/ml Inj ONE (08:49)
[2017-11-10 09:12] LABS: BANDS 1 % (0-2); BASOPHIL 1 % (0-2); EOSINOPHIL 1 % (0-4); LARGE PLATELETS PRESENT; LYMPHOCYTE 13 % (20-40); MONOCYTE 3 % (0-10); NEUTROPHIL 81 % (50-75); PLATELET ESTIMATE INCREASED (NORMAL); TOTAL CELLS COUNTED 100
[2017-11-10] MEDS: Lidocaine/Prilocaine 2.5%-2.5% Cream (5 gm) TOP SCH (11:00)
[2017-11-10] MEDS: Heparin25000 units/250ml 1/2NS 25,000 UNITS/250 ML BAG IV PRN (11:08)
--- NOTE | 2017-11-10 11:10 | CP.PCM.PN ---
Subjective - Date & Time of Evaluation Date of Evaluation: 11/10/17 Time of Evaluation: 11:10 - Subjective Subjective: Medicine progress note for Dr. Gallegos's service Patient was seen and examined at bedside in no acute distress. Patient states she has pain in her foot, but the pain medication still help to relieve her symptoms. Patient denies chest pain, abdominal pain, nausea, vomiting, fevers, headaches. Objective - Vital Signs/Intake and Output Vital Signs (last 24 hours): Temp Pulse Resp BP Pulse Ox 98.2 F 69 18 166/83 H 98 11/10/17 07:45 11/10/17 11:04 11/10/17 07:45 11/10/17 11:04 11/10/17 07:45 Intake and Output: 11/10/17 11/10/17 06:59 18:59 Intake Total 240 Balance 240 - Medications Medications: Current Medications Acetaminophen (Tylenol 325mg Tab) 650 mg PO Q6 PRN PRN Reason: Pain, moderate (4-7) Last Admin: 11/06/17 12:25 Dose: 650 mg Amlodipine Besylate (Norvasc) 10 mg PO DAILY [facility] Last Admin: 11/10/17 11:00 Dose: 10 mg Aspirin (Aspirin) 325 mg PO DAILY [facility] Last Admin: 11/10/17 11:00 Dose: 325 mg Docusate Sodium (Colace) 100 mg PO DAILY [facility] Last Admin: 11/10/17 11:00 Dose: 100 mg Famotidine (Pepcid) 20 mg PO BID [facility] Last Admin: 11/10/17 11:00 Dose: 20 mg Hydromorphone/Sodium Chloride (Dilaudid Postal Carrier) 6 mg IV Q4H PRN; Protocol PRN Reason: Pain, moderate (4-7) Last Admin: 11/08/17 13:27 Dose: 6 mg Hydroxyurea (Hydrea) 500 mg PO BID [facility] Last Admin: 11/10/17 11:00 Dose: 500 mg Heparin Sodium/Sodium Chloride (Heparin 79923 Units/250ml 1/2 Normal Saline) 25 ,000 units in 250 mls @ 15.331 mls/hr IV .[id number] PRN; Protocol; 20 UNITS/KG/HR PRN Reason: PROTOCOL Last Admin: 11/09/17 13:29 Dose: 20 units/kg/hr, 15.331 mls/hr Lidocaine/Prilocaine (Emla) 1 gm TOP DAILY [facility] Last Admin: 11/09/17 10:36 Dose: 1 gm Losartan Potassium (Cozaar) 25 mg PO DAILY [facility] Last Admin: 11/10/17 11:00 Dose: 25 mg - Labs Labs: 11/10/17 07:05 11/10/17 07:05 PT 13.1 SECONDS (9.7-12.2) H 11/03/17 17:21 INR 1.1 11/03/17 17:21 APTT 79 SECONDS (21-34) H D 11/10/17 07:44 - Additional Findings Additional findings: - Constitutional Appears: No Acute Distress - Head Exam Head Exam: ATRAUMATIC, NORMAL INSPECTION - Eye Exam Eye Exam: EOMI, Normal appearance - ENT Exam ENT Exam: Mucous Membranes Moist - Respiratory Exam Respiratory Exam: Clear to Ausculation Bilateral, NORMAL BREATHING PATTERN. absent: Rales, Rhonchi, Wheezes, Respiratory Distress - Cardiovascular Exam Cardiovascular Exam: Murmur, REGULAR RHYTHM, +S1, +S2 - GI/Abdominal Exam GI & Abdominal Exam: Soft, Normal Bowel Sounds. absent: Distended, Firm, Tenderness - Extremities Exam Extremities Exam: absent: Normal Inspection Additional comments: left LE- no palpable pulses; gangrene on digits 1-4 of left foot; painful to palpation. right LE- no palpable pulses, sensation intact; dressing clean,dry, intact - Neurological Exam Neurological Exam: Alert, Awake, Oriented x3 - Psychiatric Exam Psychiatric exam: Normal Affect, Normal Mood - Skin Skin Exam: Dry, Intact, Warm Assessment and Plan - Assessment and Plan (Free Text) Plan: 72 year old female with a past medical history of thrombocytosis and hypertension who is admitted for gangrene of the left foot. Plan: 1.Gangrene of the left foot * Patient seen at Dr. Pierre's and Cholo's office on 11/03/17 were it was cleaned, soaked and re-bandaged. She was referred to the emergency room due to the severity. * Lower extremity duplex showed occlusion of the left popliteal and anterior tibial * Heparin Bolus given in the emergency department. Heparin drip started in the emergency department afterwards. * Heparin drip continued * Dilaudid prn for pain * Dr. Pierre consulted. 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 Marcial, consulted; help appreciated 2.Hypertensive urgency * BP upon admission 225/108. * Patient normal range of SBP is in the 160's. Patient is asymptomatic upon examination. * Clonindine .2mg given in the Emergency room. * DIScontinued Cardizem 60mg Q8 (increased from 30mg on 11/06/17) * Holding parameters: BP less than 140 * Started Amlodipine 10mg PO daily and Losartan 25mg PO daily * Heart healthy diet (2g Na restriction) * Cardiology consulted, Dr. Gan; help appreciated * Echo: moderate-severe concentric LVH; mild LV diastolic dysfunction; mildly dilated LA; trace to mild MR; LVEF 66% * Patient was scheduled for stress test on 11/08; however, patient refused. * Stress test (11/10/17): f/u results * Per Dr. Gan, patient is scheduled for cath on Monday11/13/17. 3.Thrombocytosis * 850 upon admission; trending down * Farmworker [employer] consulted, Dr. Aguilar; help appreciated * Dr. Aguilar started patient on Hydera 500mg PO BID on 11/06/17. Prophylaxis: * Pepcid 20mg BID * NO SCDs * Heparin Drip * Heart Healthy diet Dispo: Angio results pending. Stress Test completed on 11/10/17- f/u results; Per Dr. Gan, patient scheduled for cardiac cath Monday11/13/17 [Patient should be NPO after breakfast Monday for cath in afternoon]. Discussed with Dr. Gallegos.
--- NOTE | 2017-11-10 20:10 | CP.PCM.PN ---
Subjective - Date & Time of Evaluation Date of Evaluation: 11/10/17 Time of Evaluation: 12:30 - Subjective Subjective: Podiatry Progress Note - Dr. Marcial 72 year old female seen at bedside for left foot gangrene. Pt is resting comfortably at time of visit, accompanied by sister. Pt reports continued intermittent, non-radiating left foot pain, she reports is well managed to a 4/ 10 with pain medication/ BIOMEDICAL PHOTOGRAPHER pump. Pt reports fall event previous evening. No other acute overnight events. Denies recent f/c/cp/sob/n/v Objective - Vital Signs/Intake and Output Vital Signs (last 24 hours): Temp Pulse Resp BP Pulse Ox 98.2 F 79 20 166/70 H 95 11/10/17 15:35 11/10/17 16:00 11/10/17 15:35 11/10/17 15:35 11/10/17 15:35 Intake and Output: 11/10/17 11/11/17 18:59 06:59 Intake Total 422.64 Balance 422.64 - Medications Medications: Current Medications Acetaminophen (Tylenol 325mg Tab) 650 mg PO Q6 PRN PRN Reason: Pain, moderate (4-7) Last Admin: 11/06/17 12:25 Dose: 650 mg Amlodipine Besylate (Norvasc) 10 mg PO DAILY [facility] Last Admin: 11/10/17 11:00 Dose: 10 mg Aspirin (Aspirin) 325 mg PO DAILY [facility] Last Admin: 11/10/17 11:00 Dose: 325 mg Docusate Sodium (Colace) 100 mg PO DAILY [facility] Last Admin: 11/10/17 11:00 Dose: 100 mg Famotidine (Pepcid) 20 mg PO BID [facility] Last Admin: 11/10/17 17:42 Dose: 20 mg Hydromorphone/Sodium Chloride (Dilaudid Director Of Product Development) 6 mg IV Q4H PRN; Protocol PRN Reason: Pain, moderate (4-7) Last Admin: 11/08/17 13:27 Dose: 6 mg Hydroxyurea (Hydrea) 500 mg PO BID [facility] Last Admin: 11/10/17 17:42 Dose: 500 mg Heparin Sodium/Sodium Chloride (Heparin 90799 Units/250ml 1/2 Normal Saline) 25 ,000 units in 250 mls @ 15.331 mls/hr IV .[id number] PRN; Protocol; 20 UNITS/KG/HR PRN Reason: PROTOCOL Last Admin: 11/10/17 11:08 Dose: 20 units/kg/hr, 15.331 mls/hr Lidocaine/Prilocaine (Emla) 1 gm TOP DAILY [facility] Last Admin: 11/10/17 11:00 Dose: 1 gm Losartan Potassium (Cozaar) 25 mg PO DAILY [facility] Last Admin: 11/10/17 11:00 Dose: 25 mg - Labs Labs: 11/10/17 07:05 11/10/17 07:05 PT 13.1 SECONDS (9.7-12.2) H 11/03/17 17:21 INR 1.1 11/03/17 17:21 APTT 79 SECONDS (21-34) H D 11/10/17 07:44 - Constitutional Appears: Well, Non-toxic, No Acute Distress - Extremities Exam Additional comments: Left lower extremity focused. Dressing clean, dry, and intact. VASC: DP and PT pulses weakly palpable, graded 1/4. Temperature runs warm to cool proximal to distal within normal limits. No capillary refill time absnet to central 3 digits and < 5 seconds to 1st and 5th digit. DERM: Left foot with blackend skin extending from lateral 1st digit to medial 4th digit including interspaces. Forefoot ischemic rebound erythema noted. Full thickness ulceration with fibrotic wound base noted to dorsal foot proximal to digits meaduring 4 x 2 cm.. Mild serous discharge noted. - Neurological Exam Neurological Exam: Alert, Awake, Oriented x3 - Psychiatric Exam Psychiatric exam: Normal Affect, Normal Mood Assessment and Plan - Assessment and Plan (Free Text) Assessment: 72 year old with 1) left foot Pineda grade 4 ulceration/ forefoot wet gangrene secondary to PAD. 2) Left Popliteal vein DVT 3) Thrrombocytosis. Plan: Pt seen and evaluated with attending, Dr. Marcial present. Chart, Labs, and vitals reviewed. Afebrile, Afebrile, WBC= 12.5. Cleansed wound site with sterile saline, Dressed with Telfa and DSD. Continue Heparin Drip DVT prophylaxis. Continue pain control. Pt deciding which surgical option to pursue between Below knee amputation vs transmetatarsal amputation. Cardia Clearance- pending Pt completed cardia stress test them AM. Per Dr. Gan, patient scheduled for cardiac cath Monday11/13/17 Podiatry will continue to follow this patient while inhouse.
[2017-11-10 23:18] LABS: SQUAMOUS EPITHIAL 3 /hpf (0-5); URINE BACTERIA MANY (<OCC); URINE BILIRUBIN NEGATIVE (NEGATIVE); URINE BLOOD 1+ (NEGATIVE); URINE CLARITY Hazy (Clear); URINE GLUCOSE (UA) NORMAL (Normal); URINE LEUKOCYTE ESTERASE 2+ Leu/uL (Negative); URINE NITRATE NEGATIVE (NEGATIVE); URINE PROTEIN 1+ mg/dL (NEGATIVE)
[2017-11-10 23:19] LABS: URINE COLOR YELLOW (YELLOW)
[2017-11-11] MEDS: Heparin25000 units/250ml 1/2NS 25,000 UNITS/250 ML BAG IV PRN (05:17)
[2017-11-11 07:34] LABS: BASO % 0.2 % (0.0-2.0); EOS # 0.4 K/uL (0.0-0.7); EOS % 3.3 % (0.0-4.0); HEMOGLOBIN 18.4 g/dL (11.0-16.0); LYMPH % 8.9 % (20.0-40.0); MEAN CELL VOLUME 94.7 fL (81.0-99.0); MEAN CORPUSCULAR HEMOGLOBIN 32.8 pg (27.0-31.0); MEAN CORPUSCULAR HGB CONC 34.6 g/dL (33.0-37.0); MEAN PLATELET VOLUME 9.4 fL (7.2-11.7); MONO # 0.7 K/uL (0.0-0.8); MONO % 6.3 % (0.0-10.0); NEUT # 8.9 K/uL (1.8-7.0); NEUT % 81.3 % (50.0-75.0); NRBC % 0.1 % (0.0-2.0); PLATELET COUNT 642 K/uL (130-400); RBC 5.59 Mil/uL (3.80-5.20); RED CELL DISTRIBUTION WIDTH 14.5 % (11.5-14.5); WHITE BLOOD COUNT 10.9 K/uL (4.8-10.8)
[2017-11-11 08:14] LABS: ALBUMIN 3.3 g/dL (3.5-5.0); ALT/SGPT 19 U/L (9-52); AST/SGOT 21 U/L (14-36); BLOOD UREA NITROGEN 16 mg/dL (7-17); CALCIUM 9.3 mg/dl (8.6-10.4); GFR AFRICAN-AMERICAN > 60; GFR NON-AFRICAN AMERICAN > 60; MAGNESIUM 1.9 mg/dL (1.6-2.3)
[2017-11-11] MEDS: Lidocaine/Prilocaine 2.5%-2.5% Cream (5 gm) TOP SCH (09:51)
[2017-11-11 11:02] LABS: EOSINOPHIL 5 % (0-4); LYMPHOCYTE 12 % (20-40); MONOCYTE 4 % (0-10); NEUTROPHIL 79 % (50-75); TOTAL CELLS COUNTED 100
[2017-11-11 11:03] LABS: PLATELET ESTIMATE SLIGHTLY INCREASED (NORMAL)
[2017-11-11 11:05] LABS: LARGE PLATELETS PRESENT
--- NOTE | 2017-11-11 11:20 | CP.PCM.PN ---
Subjective - Date & Time of Evaluation Date of Evaluation: 11/11/17 Time of Evaluation: 11:20 - Subjective Subjective: Podiatry Progress Note - Dr. Marcial 72 year old female seen at bedside for left forefoot gangrene. Pt is resting comfortably at time of visit. Pt reports continued intermittent, non-radiating left foot pain. She states the medication helps but that dressing changes are excruciatingly painful. She states she is frustrated that she cannot get liquid lidocaine for her dressing changes, which she is used to getting in the outpatient setting. She states she has given surgery some thought but she is not happy about the idea. She is aware that her circulation is poor and she does not have much of a choice moving forward. Denies any acute overnight events. Denies recent F/C/N/V/CP/SOB Objective - Vital Signs/Intake and Output Vital Signs (last 24 hours): Temp Pulse Resp BP Pulse Ox 97.6 F 71 18 147/72 96 11/11/17 07:55 11/11/17 09:48 11/11/17 07:55 11/11/17 09:48 11/11/17 07:55 Intake and Output: 11/11/17 11/11/17 06:59 18:59 Intake Total 613.4 Balance 613.4 - Medications Medications: Current Medications Acetaminophen (Tylenol 325mg Tab) 650 mg PO Q6 PRN PRN Reason: Pain, moderate (4-7) Last Admin: 11/06/17 12:25 Dose: 650 mg Amlodipine Besylate (Norvasc) 10 mg PO DAILY [facility] Last Admin: 11/11/17 09:51 Dose: 10 mg Aspirin (Aspirin) 325 mg PO DAILY [facility] Last Admin: 11/11/17 09:51 Dose: 325 mg Docusate Sodium (Colace) 100 mg PO DAILY [facility] Last Admin: 11/11/17 09:51 Dose: 100 mg Famotidine (Pepcid) 20 mg PO BID [facility] Last Admin: 11/11/17 09:51 Dose: 20 mg Hydromorphone/Sodium Chloride (Dilaudid Dynamite Reclaimer) 6 mg IV Q4H PRN; Protocol PRN Reason: Pain, moderate (4-7) Last Admin: 11/08/17 13:27 Dose: 6 mg Hydroxyurea (Hydrea) 500 mg PO BID [facility] Last Admin: 11/11/17 09:51 Dose: 500 mg Heparin Sodium/Sodium Chloride (Heparin 61795 Units/250ml 1/2 Normal Saline) 25 ,000 units in 250 mls @ 15.331 mls/hr IV .[id number] PRN; Protocol; 20 UNITS/KG/HR PRN Reason: PROTOCOL Last Admin: 11/11/17 05:17 Dose: 20 units/kg/hr, 15.331 mls/hr Ceftriaxone Sodium 1 gm/ (Sodium Chloride) 100 mls @ 100 mls/hr IVPB DAILY [facility] Lidocaine/Prilocaine (Emla) 1 gm TOP DAILY [facility] Last Admin: 11/11/17 09:51 Dose: Not Given Losartan Potassium (Cozaar) 25 mg PO DAILY [facility] Last Admin: 11/11/17 09:51 Dose: 25 mg - Labs Labs: 11/11/17 07:22 11/11/17 07:22 PT 13.1 SECONDS (9.7-12.2) H 11/03/17 17:21 INR 1.1 11/03/17 17:21 APTT 81 SECONDS (21-34) H 11/11/17 07:22 - Constitutional Appears: Well, Non-toxic, No Acute Distress - Extremities Exam Additional comments: Dressing remains C/D/I to left foot No strikethrough noted on bandage - Neurological Exam Neurological Exam: Alert, Awake, Oriented x3 - Psychiatric Exam Psychiatric exam: Normal Affect, Normal Mood Assessment and Plan - Assessment and Plan (Free Text) Assessment: 72 year old with 1) left foot Pineda grade 4 ulceration/ forefoot wet gangrene secondary to PAD. 2) Left Popliteal vein DVT 3) Thrombocytosis. Plan: Pt seen and evaluated with attending, Dr. Marcial present. Chart, labs, and vitals reviewed - afebrile, WBC 10.9 Wound dressing left intact at this time, to be changed tomorrow Continue Heparin Drip DVT prophylaxis Continue pain control Pt deciding which surgical option to pursue between Below knee amputation vs transmetatarsal amputation. Cardiac Clearance pending Pt completed cardia stress test Per Dr. Gan, patient scheduled for cardiac cath Monday11/13/17 Podiatry will continue to follow this patient while in house
--- NOTE | 2017-11-11 12:46 | CARD ---
APPROVED REPORT Protocol: PHARMACOLOGICAL STRESS Test Type: LEXISCAN Test Indications: HTN,PRE OP CARDIAC Medications: LIST SCAN Medical History: HYPERTENSION,PRE OP CARDIAC Target HR: 147 bpm Resting ECG: NSR W/ NS ST T CHANGES Resting Heart Rate: 68 bpm Resting Blood Pressure: 150/80mmHg submaximum (85%): 125 bpm TEST SUMMARY [id number]/80.0. INFUSIONDOSE 100:300.00.01.067/.0. [id number]:060.00..[id number]/80.0. PROCEDURE Pharmacologic stress testing was performed using 0.4mg per 5ml of regadenoson given intravenously over 7-10 seconds. Reversal agent aminophyline 125 mg, given intravenously for Dyspnea. POST EXERCISE Reason for Termination: Protocol Completed Target HR: No Max HR: 67 bpm 55% of Maximum Predicted HR: 147 bpm Exercise duration: 00:30 min:sec, 0 Stage Exercise capacity: 1.0METs Max Blood Pressure: 166/80mmHg Blood Pressure response to exercise: normal resting BP - appropriate response Heart Rate response to exercise: appropriate Chest Pain: No, none Angina index: 0 Arrhythmia: No, none ST Change: No, none SIGNIFICANT FROM BASELINE Deviation: 0 mm INTERPRETATION Stress EKG Conclusion: NEGATIVE LEXISCAN STRESS TEST NORMAL BP RESPONSE TO LEXISCAN NUCLEAR STUDIES TO BE READ SEPARATELY EXAM: Myocardial Perfusion STRESS/REST Imaging Protocol The imaging protocol used to acquire images was Stress Tc-99m/rest Tc-99m 1 day Rest Spect myocardial perfusion imaging was performed in supine position 45 minutes following the injection of 32.0 mCi of Tc-99 Myoview. Gated Stress Spect was performed 45 minutes after intravenous 12.9 mCi Tc-99 Myoview injection. The images were gated to evaluate regional wall motion and calculate ventricular ejection fraction.Images were reconstructed using backfilter projection method in short horizontal and verticle long axis. Spect slices were generated. RESTING DATA [id number]/min ESV36.00mlMyocardial Dbih330.00g Av. Heart Rate74.00bpm EF68.00% STRESS DATA DUE761.71izNS3.20L/min ESV37.00mlMyocardial Mynz658.00g EF71.00% Regional WT score at stress:0.00 Regional WM score at stress:0.00 Summed WT score at stress:3.00 Av. Heart Rate79.00bpmSummed WM score at stress:0.00 LV Perf. Quant 17 Seg. SSS0.00 17 Seg. SRS0.00 17 Seg. SDS0.00 Stress Defect Extent (% LAD)0.00Rest Defect Extent (% LAD)0.00Rev. Defect Extent (% LAD)0.00 Stress Defect Extent (% LCX)0.00Rest Defect Extent (% LCX)0.00Rev. Defect Extent (% LCX)0.00 Stress Defect Extent (% RCA)0.00Rest Defect Extent (% RCA)0.00Rev. Defect Extent (% RCA)0.00 Stress Defect Extent (% LASHONDA)0.00Rest Defect Extent (% LASHONDA)0.00Rev. Defect Extent (% LASHONDA)0.00 Other Information Quality:Good IMPRESSION Normal Myocardial Perfusion exercise stress study Left Ventricle LV Function:Left ventricle systolic function is normal. The Ejection Fraction is >55%. Metabolism/Perfusion There are no perfusion/metabolism defects. Conclusion 1. Normal Lexiscan Nuclear stress test. Normal EF
--- NOTE | 2017-11-11 14:09 | CP.PCM.PN ---
Subjective - Date & Time of Evaluation Date of Evaluation: 11/11/17 Time of Evaluation: 14:03 - Subjective Subjective: PGY2 progress note for Dr. Gallegos Pt seen and examined at bedside. No acute events overnight. Pt resting comfortably. Pt denies having any pain in lower extremities. Denies having any CP, SOB, abd pain, N/V/D/C, F/C. Objective - Vital Signs/Intake and Output Vital Signs (last 24 hours): Temp Pulse Resp BP Pulse Ox 97.6 F 75 18 147/72 96 11/11/17 07:55 11/11/17 12:00 11/11/17 07:55 11/11/17 09:48 11/11/17 07:55 Intake and Output: 11/11/17 11/11/17 06:59 18:59 Intake Total 613.4 Balance 613.4 - Medications Medications: Current Medications Acetaminophen (Tylenol 325mg Tab) 650 mg PO Q6 PRN PRN Reason: Pain, moderate (4-7) Last Admin: 11/06/17 12:25 Dose: 650 mg Amlodipine Besylate (Norvasc) 10 mg PO DAILY [facility] Last Admin: 11/11/17 09:51 Dose: 10 mg Aspirin (Aspirin) 325 mg PO DAILY [facility] Last Admin: 11/11/17 09:51 Dose: 325 mg Docusate Sodium (Colace) 100 mg PO DAILY [facility] Last Admin: 11/11/17 09:51 Dose: 100 mg Famotidine (Pepcid) 20 mg PO BID [facility] Last Admin: 11/11/17 09:51 Dose: 20 mg Hydromorphone/Sodium Chloride (Dilaudid Roof Designer) 6 mg IV Q4H PRN; Protocol PRN Reason: Pain, moderate (4-7) Last Admin: 11/08/17 13:27 Dose: 6 mg Hydroxyurea (Hydrea) 500 mg PO BID [facility] Last Admin: 11/11/17 09:51 Dose: 500 mg Heparin Sodium/Sodium Chloride (Heparin 63827 Units/250ml 1/2 Normal Saline) 25 ,000 units in 250 mls @ 15.331 mls/hr IV .[id number] PRN; Protocol; 20 UNITS/KG/HR PRN Reason: PROTOCOL Last Admin: 11/11/17 05:17 Dose: 20 units/kg/hr, 15.331 mls/hr Ceftriaxone Sodium 1 gm/ (Sodium Chloride) 100 mls @ 100 mls/hr IVPB DAILY [facility] Last Admin: 11/11/17 11:30 Dose: 100 mls/hr Lidocaine/Prilocaine (Emla) 1 gm TOP DAILY [facility] Last Admin: 11/11/17 09:51 Dose: Not Given Losartan Potassium (Cozaar) 25 mg PO DAILY [facility] Last Admin: 11/11/17 09:51 Dose: 25 mg - Labs Labs: 11/11/17 07:22 11/11/17 07:22 PT 13.1 SECONDS (9.7-12.2) H 11/03/17 17:21 INR 1.1 11/03/17 17:21 APTT 81 SECONDS (21-34) H 11/11/17 07:22 - Constitutional Appears: Non-toxic, No Acute Distress - Head Exam Head Exam: ATRAUMATIC - ENT Exam ENT Exam: Mucous Membranes Moist - Respiratory Exam Respiratory Exam: Clear to Ausculation Bilateral. absent: Accessory Muscle Use , Rhonchi, Wheezes, Respiratory Distress - Cardiovascular Exam Cardiovascular Exam: REGULAR RHYTHM, +S1, +S2. absent: Gallop, Rubs, Murmur - GI/Abdominal Exam GI & Abdominal Exam: Soft, Normal Bowel Sounds. absent: Distended, Firm, Guarding, Rigid, Tenderness, Organomegaly - Extremities Exam Extremities Exam: absent: Pedal Edema, Tenderness - Neurological Exam Neurological Exam: Alert, Awake, Oriented x3 - Psychiatric Exam Psychiatric exam: Normal Affect, Normal Mood - Skin Skin Exam: Dry, Intact, Normal Color, Warm Assessment and Plan - Assessment and Plan (Free Text) Assessment: 72 year old female with a past medical history of thrombocytosis and hypertension who is admitted for gangrene of the left foot. Plan: 1.Gangrene of the left foot * Patient seen at Dr. Pierre's and Cholo's office on 11/03/17 were it was cleaned, soaked and re-bandaged. She was referred to the emergency room due to the severity. * Lower extremity duplex showed occlusion of the left popliteal and anterior tibial * Heparin Bolus given in the emergency department. Heparin drip started in the emergency department afterwards. * Heparin drip continued * Dilaudid prn for pain * Dr. Pierre consulted. 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 Marcial, consulted; help appreciated 2.Hypertensive urgency * Resolved * BP upon admission 225/108. * Started Amlodipine 10mg PO daily and Losartan 25mg PO daily * Heart healthy diet (2g Na restriction) * Cardiology consulted. Per Dr. Gan, since Lexiscan was normal, no need for cardiac cath. Cleared for surgery by cardio * Echo: moderate-severe concentric LVH; mild LV diastolic dysfunction; mildly dilated LA; trace to mild MR; LVEF 66% * Lexiscan stress test on 11/09/17 is normal 3.Thrombocytosis * 850 upon admission; trending down * Auto Phone Installer consulted, Dr. Aguilar; help appreciated * Dr. Aguilar started patient on Hydera 500mg PO BID on 11/06/17. Prophylaxis: * Pepcid 20mg BID * NO SCDs * Heparin Drip * Heart Healthy diet All managements and orders per Dr. Gallegos
[2017-11-12] MEDS: Heparin25000 units/250ml 1/2NS 25,000 UNITS/250 ML BAG IV PRN ×2 (00:12→17:24)
--- NOTE | 2017-11-12 08:20 | CP.PCM.PN ---
Subjective - Date & Time of Evaluation Date of Evaluation: 11/11/17 Time of Evaluation: 13:10 - Subjective Subjective: Patient seen and evaluated Denies chest pain and dyspnea Physical Examination - Additional Findings Additional findings: - Constitutional Appears: No Acute Distress - Head Exam Head Exam: ATRAUMATIC, NORMAL INSPECTION - Eye Exam Eye Exam: EOMI, Normal appearance - ENT Exam ENT Exam: Mucous Membranes Moist - Respiratory Exam Respiratory Exam: Clear to Ausculation Bilateral, NORMAL BREATHING PATTERN. absent: Rales, Rhonchi, Wheezes, Respiratory Distress - Cardiovascular Exam Cardiovascular Exam: Murmur, REGULAR RHYTHM, +S1, +S2 - GI/Abdominal Exam GI & Abdominal Exam: Soft, Normal Bowel Sounds. absent: Distended, Firm, Tenderness - Extremities Exam Extremities Exam: absent: Normal Inspection Additional comments: left LE- no palpable pulses; gangrene on digits 1-4 of left foot; painful to palpation. right LE- no palpable pulses, sensation intact; - Neurological Exam Neurological Exam: Alert, Awake, Oriented x3 - Psychiatric Exam Psychiatric exam: Normal Affect, Normal Mood - Skin Skin Exam: Dry, Intact, Warm Objective - Vital Signs/Intake and Output Vital Signs (last 24 hours): Temp Pulse Resp BP Pulse Ox 98.4 F 82 20 167/73 H 95 11/12/17 04:25 11/12/17 05:28 11/12/17 04:25 11/12/17 04:55 11/12/17 04:25 Intake and Output: 11/12/17 11/12/17 06:59 18:59 Intake Total 1114.4 Balance 1114.4 - Medications Medications: Current Medications Acetaminophen (Tylenol 325mg Tab) 650 mg PO Q6 PRN PRN Reason: Pain, moderate (4-7) Last Admin: 11/06/17 12:25 Dose: 650 mg Amlodipine Besylate (Norvasc) 10 mg PO DAILY [facility] Last Admin: 11/11/17 09:51 Dose: 10 mg Aspirin (Aspirin) 325 mg PO DAILY [facility] Last Admin: 11/11/17 09:51 Dose: 325 mg Docusate Sodium (Colace) 100 mg PO DAILY [facility] Last Admin: 11/11/17 09:51 Dose: 100 mg Famotidine (Pepcid) 20 mg PO BID [facility] Last Admin: 11/11/17 18:46 Dose: 20 mg Hydromorphone/Sodium Chloride (Dilaudid Title Search Manager) 6 mg IV Q4H PRN; Protocol PRN Reason: Pain, moderate (4-7) Last Admin: 11/11/17 16:39 Dose: 6 mg Hydroxyurea (Hydrea) 500 mg PO BID [facility] Last Admin: 11/11/17 18:46 Dose: 500 mg Heparin Sodium/Sodium Chloride (Heparin 35786 Units/250ml 1/2 Normal Saline) 25 ,000 units in 250 mls @ 15.331 mls/hr IV .[id number] PRN; Protocol; 20 UNITS/KG/HR PRN Reason: PROTOCOL Last Admin: 11/12/17 00:12 Dose: 20 units/kg/hr, 15.331 mls/hr Ceftriaxone Sodium 1 gm/ (Sodium Chloride) 100 mls @ 100 mls/hr IVPB DAILY [facility] Last Admin: 11/11/17 11:30 Dose: 100 mls/hr Lidocaine (Lidoderm) 1 ea TD DAILY [facility] Lidocaine/Prilocaine (Emla) 1 gm TOP DAILY [facility] Last Admin: 11/11/17 09:51 Dose: Not Given Losartan Potassium (Cozaar) 25 mg PO DAILY [facility] Last Admin: 11/11/17 09:51 Dose: 25 mg - Labs Labs: 11/11/17 07:22 11/11/17 07:22 PT 13.1 SECONDS (9.7-12.2) H 11/03/17 17:21 INR 1.1 11/03/17 17:21 APTT 81 SECONDS (21-34) H 11/11/17 07:22 Assessment and Plan - Assessment and Plan (Free Text) Assessment: 72 year old female with a past medical history of thrombocytosis and hypertension who is admitted for gangrene of the left foot. Plan: 1.Gangrene of the left foot * Mgt as per Dr. Pierre 2.Hypertension: Controlled 3.Thrombocytosis * Regional Medical Director consulted, Dr. Aguilar; help appreciated Prophylaxis: * Pepcid 20mg BID * NO SCDs * Heparin Pre Operative Cardiac Risk Assessment Hx of HTN Stress test negative for Ischemia ECHO: Normal EF. Mild to moderate No cardiac symptoms as per the patient Patient likely to be scheduled for Lt. BKA There is no high cardiac risk feature noted. Likely Cardiac risk is moderate or Intermediate (3-5%) If benefit outweighs the risk please proceed with the surgery Will follow. thank you
--- NOTE | 2017-11-12 08:20 | CP.PCM.PN ---
Subjective - Date & Time of Evaluation Date of Evaluation: 11/10/17 Time of Evaluation: 09:30 - Subjective Subjective: Patient seen and evaluated Denies chest pain and dyspnea Patient for stress test today Physical Examination - Additional Findings Additional findings: - Constitutional Appears: No Acute Distress - Head Exam Head Exam: ATRAUMATIC, NORMAL INSPECTION - Eye Exam Eye Exam: EOMI, Normal appearance - ENT Exam ENT Exam: Mucous Membranes Moist - Respiratory Exam Respiratory Exam: Clear to Ausculation Bilateral, NORMAL BREATHING PATTERN. absent: Rales, Rhonchi, Wheezes, Respiratory Distress - Cardiovascular Exam Cardiovascular Exam: Murmur, REGULAR RHYTHM, +S1, +S2 - GI/Abdominal Exam GI & Abdominal Exam: Soft, Normal Bowel Sounds. absent: Distended, Firm, Tenderness - Extremities Exam Extremities Exam: absent: Normal Inspection Additional comments: left LE- no palpable pulses; gangrene on digits 1-4 of left foot; painful to palpation. right LE- no palpable pulses, sensation intact; - Neurological Exam Neurological Exam: Alert, Awake, Oriented x3 - Psychiatric Exam Psychiatric exam: Normal Affect, Normal Mood - Skin Skin Exam: Dry, Intact, Warm Objective - Vital Signs/Intake and Output Vital Signs (last 24 hours): Temp Pulse Resp BP Pulse Ox 98.4 F 82 20 167/73 H 95 11/12/17 04:25 11/12/17 05:28 11/12/17 04:25 11/12/17 04:55 11/12/17 04:25 Intake and Output: 11/12/17 11/12/17 06:59 18:59 Intake Total 1114.4 Balance 1114.4 - Medications Medications: Current Medications Acetaminophen (Tylenol 325mg Tab) 650 mg PO Q6 PRN PRN Reason: Pain, moderate (4-7) Last Admin: 11/06/17 12:25 Dose: 650 mg Amlodipine Besylate (Norvasc) 10 mg PO DAILY [facility] Last Admin: 11/11/17 09:51 Dose: 10 mg Aspirin (Aspirin) 325 mg PO DAILY [facility] Last Admin: 11/11/17 09:51 Dose: 325 mg Docusate Sodium (Colace) 100 mg PO DAILY [facility] Last Admin: 11/11/17 09:51 Dose: 100 mg Famotidine (Pepcid) 20 mg PO BID [facility] Last Admin: 11/11/17 18:46 Dose: 20 mg Hydromorphone/Sodium Chloride (Dilaudid Dermatologist) 6 mg IV Q4H PRN; Protocol PRN Reason: Pain, moderate (4-7) Last Admin: 11/11/17 16:39 Dose: 6 mg Hydroxyurea (Hydrea) 500 mg PO BID [facility] Last Admin: 11/11/17 18:46 Dose: 500 mg Heparin Sodium/Sodium Chloride (Heparin 38042 Units/250ml 1/2 Normal Saline) 25 ,000 units in 250 mls @ 15.331 mls/hr IV .[id number] PRN; Protocol; 20 UNITS/KG/HR PRN Reason: PROTOCOL Last Admin: 11/12/17 00:12 Dose: 20 units/kg/hr, 15.331 mls/hr Ceftriaxone Sodium 1 gm/ (Sodium Chloride) 100 mls @ 100 mls/hr IVPB DAILY [facility] Last Admin: 11/11/17 11:30 Dose: 100 mls/hr Lidocaine (Lidoderm) 1 ea TD DAILY [facility] Lidocaine/Prilocaine (Emla) 1 gm TOP DAILY [facility] Last Admin: 11/11/17 09:51 Dose: Not Given Losartan Potassium (Cozaar) 25 mg PO DAILY [facility] Last Admin: 11/11/17 09:51 Dose: 25 mg - Labs Labs: 11/11/17 07:22 11/11/17 07:22 PT 13.1 SECONDS (9.7-12.2) H 11/03/17 17:21 INR 1.1 11/03/17 17:21 APTT 81 SECONDS (21-34) H 11/11/17 07:22 Assessment and Plan - Assessment and Plan (Free Text) Assessment: 72 year old female with a past medical history of thrombocytosis and hypertension who is admitted for gangrene of the left foot. Plan: 1.Gangrene of the left foot * Mgt as per Dr. Pierre 2.Hypertension: Controlled 3.Thrombocytosis * Mma Fighter consulted, Dr. Aguilar; help appreciated Prophylaxis: * Pepcid 20mg BID * NO SCDs * Heparin Pending stress results today
[2017-11-12 08:51] LABS: BASO # 0.1 K/uL (0.0-0.2); BASO % 1.5 % (0.0-2.0); EOS # 0.3 K/uL (0.0-0.7); EOS % 2.9 % (0.0-4.0); HEMOGLOBIN 17.1 g/dL (11.0-16.0); LYMPH % 10.4 % (20.0-40.0); MEAN CELL VOLUME 95.3 fL (81.0-99.0); MEAN CORPUSCULAR HEMOGLOBIN 31.6 pg (27.0-31.0); MEAN CORPUSCULAR HGB CONC 33.2 g/dL (33.0-37.0); MONO # 0.7 K/uL (0.0-0.8); MONO % 6.9 % (0.0-10.0); NEUT # 7.6 K/uL (1.8-7.0); NEUT % 78.3 % (50.0-75.0); NRBC % 0.1 % (0.0-2.0); RBC 5.41 Mil/uL (3.80-5.20); RED CELL DISTRIBUTION WIDTH 14.9 % (11.5-14.5); WHITE BLOOD COUNT 9.6 K/uL (4.8-10.8)
[2017-11-12 09:03] LABS: ALBUMIN 3.3 g/dL (3.5-5.0); ALT/SGPT 13 U/L (9-52); AST/SGOT 42 U/L (14-36); BLOOD UREA NITROGEN 22 mg/dL (7-17); CALCIUM 9.1 mg/dl (8.6-10.4); GFR AFRICAN-AMERICAN > 60; GFR NON-AFRICAN AMERICAN > 60; MAGNESIUM 1.9 mg/dL (1.6-2.3)
[2017-11-12] MEDS: Lidocaine/Prilocaine 2.5%-2.5% Cream (5 gm) TOP SCH (09:42)
[2017-11-12] MEDS: Lidocaine 5% Patch TD SCH (09:42)
--- NOTE | 2017-11-12 10:07 | CP.PCM.PN ---
Subjective - Date & Time of Evaluation Date of Evaluation: 11/12/17 Time of Evaluation: 09:58 - Subjective Subjective: PGY2 progress note for Dr. Gallegos Pt seen and examined at bedside. No acute events overnight. Pt slept well. Denies having any CP, SOB, abd pain, N/V/D/C, F/C. Complains of slight pain in her left foot and states that she thinks her morphine pump is not working. 12 point ROS negative except for the above mentioned. Objective - Vital Signs/Intake and Output Vital Signs (last 24 hours): Temp Pulse Resp BP Pulse Ox 98.4 F 77 20 173/83 H 95 11/12/17 08:00 11/12/17 09:24 11/12/17 08:00 11/12/17 09:24 11/12/17 08:00 Intake and Output: 11/12/17 11/12/17 06:59 18:59 Intake Total 1114.4 Balance 1114.4 - Medications Medications: Current Medications Acetaminophen (Tylenol 325mg Tab) 650 mg PO Q6 PRN PRN Reason: Pain, moderate (4-7) Last Admin: 11/06/17 12:25 Dose: 650 mg Amlodipine Besylate (Norvasc) 10 mg PO DAILY [facility] Last Admin: 11/12/17 09:28 Dose: 10 mg Aspirin (Aspirin) 325 mg PO DAILY [facility] Last Admin: 11/12/17 09:28 Dose: 325 mg Docusate Sodium (Colace) 100 mg PO DAILY [facility] Last Admin: 11/12/17 09:28 Dose: 100 mg Famotidine (Pepcid) 20 mg PO BID [facility] Last Admin: 11/12/17 09:28 Dose: 20 mg Hydromorphone/Sodium Chloride (Dilaudid Fluid Designer) 6 mg IV Q4H PRN; Protocol PRN Reason: Pain, moderate (4-7) Last Admin: 11/11/17 16:39 Dose: 6 mg Hydroxyurea (Hydrea) 500 mg PO BID [facility] Last Admin: 11/12/17 09:28 Dose: 500 mg Heparin Sodium/Sodium Chloride (Heparin 07651 Units/250ml 1/2 Normal Saline) 25 ,000 units in 250 mls @ 15.331 mls/hr IV .[id number] PRN; Protocol; 20 UNITS/KG/HR PRN Reason: PROTOCOL Last Admin: 11/12/17 00:12 Dose: 20 units/kg/hr, 15.331 mls/hr Ceftriaxone Sodium 1 gm/ (Sodium Chloride) 100 mls @ 100 mls/hr IVPB DAILY [facility] Last Admin: 11/12/17 09:42 Dose: 100 mls/hr Lidocaine (Lidoderm) 1 ea TD DAILY [facility] Last Admin: 11/12/17 09:42 Dose: Not Given Lidocaine/Prilocaine (Emla) 1 gm TOP DAILY [facility] Last Admin: 11/12/17 09:42 Dose: Not Given Losartan Potassium (Cozaar) 25 mg PO DAILY [facility] Last Admin: 11/12/17 09:28 Dose: 25 mg - Labs Labs: 11/12/17 08:29 11/12/17 08:29 PT 13.1 SECONDS (9.7-12.2) H 11/03/17 17:21 INR 1.1 11/03/17 17:21 APTT 72 SECONDS (21-34) H D 11/12/17 08:29 - Constitutional Appears: Non-toxic, No Acute Distress - Head Exam Head Exam: ATRAUMATIC - ENT Exam ENT Exam: Mucous Membranes Moist - Respiratory Exam Respiratory Exam: Clear to Ausculation Bilateral. absent: Accessory Muscle Use , Rales, Rhonchi, Wheezes, Respiratory Distress - Cardiovascular Exam Cardiovascular Exam: REGULAR RHYTHM, +S1, +S2, Murmur - GI/Abdominal Exam GI & Abdominal Exam: Soft, Normal Bowel Sounds. absent: Distended, Firm, Guarding, Rigid, Tenderness, Organomegaly - Extremities Exam Extremities Exam: absent: Pedal Edema, Tenderness - Neurological Exam Neurological Exam: Alert, Awake, Oriented x3 - Psychiatric Exam Psychiatric exam: Normal Affect, Normal Mood - Skin Skin Exam: Dry, Intact, Normal Color, Warm Assessment and Plan - Assessment and Plan (Free Text) Assessment: 72 year old female with a past medical history of thrombocytosis and hypertension who is admitted for gangrene of the left foot. Plan: 1.Gangrene of the left foot * Patient is still deciding which surgery she prefers. Patient would liek to discuss her options in detail with Dr. Pierre * Patient seen at Dr. Pierre's and Cholo's office on 11/03/17 were it was cleaned, soaked and re-bandaged. She was referred to the emergency room due to the severity. * Lower extremity duplex showed occlusion of the left popliteal and anterior tibial * Heparin Bolus given in the emergency department. Heparin drip started in the emergency department afterwards. * Heparin drip continued * Dilaudid prn for pain * Dr. Pierre consulted. 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 patient will likely be getting a BKA. * Podiatry, Dr. Marcial, consulted; help appreciated 2.Hypertensive urgency * Currently blood pressure is at 179/90. Will consider increasing losartan to 50 mg po qd * BP upon admission 225/108. * Started Amlodipine 10mg PO daily and Losartan 25mg PO daily * Heart healthy diet (2g Na restriction) * Cardiology consulted. Per Dr. Gan, since Lexiscan was normal, no need for cardiac cath. Cleared for surgery by cardio * Echo: moderate-severe concentric LVH; mild LV diastolic dysfunction; mildly dilated LA; trace to mild MR; LVEF 66% * Lexiscan stress test on 11/09/17 is normal 3.Thrombocytosis * 850 upon admission; trending down * Blocking Machine Operator consulted, Dr. Aguilar; help appreciated * Dr. Aguilar started patient on Hydera 500mg PO BID on 11/06/17. 4. UTI * UA on admission was positive. * Urine cultures show gram negative rods * Pt started on rocephin 11/11/17 Prophylaxis: * Pepcid 20mg BID * NO SCDs * Heparin Drip * Heart Healthy diet Patient will be given information about the POLST document All managements and orders per Dr. Gallegos
--- NOTE | 2017-11-12 13:12 | CP.PCM.PN ---
Subjective - Date & Time of Evaluation Date of Evaluation: 11/12/17 Time of Evaluation: 13:09 - Subjective Subjective: Podiatry Progress Note - Dr. Marcial 72 year old female seen at bedside for left forefoot gangrene. Pt is resting comfortably at time of visit. Pt states she has decided to move forward and have her leg amputated and wants to make sure that nothing will happen to the leg, as she has made arrangements to have it picked up from the morgue and cremated. Pt says she does not want the dressing changed today, as she doesn't see the point if the leg is coming off. Pt says it isn't worth the pain to change the bandage. Denies any acute overnight events. Denies recent F/C/N/V/CP/ SOB Objective - Vital Signs/Intake and Output Vital Signs (last 24 hours): Temp Pulse Resp BP Pulse Ox 98.4 F 77 20 173/83 H 95 11/12/17 08:00 11/12/17 09:24 11/12/17 08:00 11/12/17 09:24 11/12/17 08:00 Intake and Output: 11/12/17 11/12/17 06:59 18:59 Intake Total 1114.4 Balance 1114.4 - Medications Medications: Current Medications Acetaminophen (Tylenol 325mg Tab) 650 mg PO Q6 PRN PRN Reason: Pain, moderate (4-7) Last Admin: 11/06/17 12:25 Dose: 650 mg Amlodipine Besylate (Norvasc) 10 mg PO DAILY [facility] Last Admin: 11/12/17 09:28 Dose: 10 mg Aspirin (Aspirin) 325 mg PO DAILY [facility] Last Admin: 11/12/17 09:28 Dose: 325 mg Docusate Sodium (Colace) 100 mg PO DAILY [facility] Last Admin: 11/12/17 09:28 Dose: 100 mg Famotidine (Pepcid) 20 mg PO BID [facility] Last Admin: 11/12/17 09:28 Dose: 20 mg Hydromorphone/Sodium Chloride (Dilaudid Production Utility Worker) 6 mg IV Q4H PRN; Protocol PRN Reason: Pain, moderate (4-7) Last Admin: 11/11/17 16:39 Dose: 6 mg Hydroxyurea (Hydrea) 500 mg PO BID [facility] Last Admin: 11/12/17 09:28 Dose: 500 mg Heparin Sodium/Sodium Chloride (Heparin 91132 Units/250ml 1/2 Normal Saline) 25 ,000 units in 250 mls @ 15.331 mls/hr IV .[id number] PRN; Protocol; 20 UNITS/KG/HR PRN Reason: PROTOCOL Last Admin: 11/12/17 00:12 Dose: 20 units/kg/hr, 15.331 mls/hr Ceftriaxone Sodium 1 gm/ (Sodium Chloride) 100 mls @ 100 mls/hr IVPB DAILY [facility] Last Admin: 11/12/17 09:42 Dose: 100 mls/hr Lidocaine (Lidoderm) 1 ea TD DAILY [facility] Last Admin: 11/12/17 09:42 Dose: Not Given Lidocaine/Prilocaine (Emla) 1 gm TOP DAILY [facility] Last Admin: 11/12/17 09:42 Dose: Not Given Losartan Potassium (Cozaar) 25 mg PO DAILY [facility] Last Admin: 11/12/17 09:28 Dose: 25 mg - Labs Labs: 11/12/17 08:29 11/12/17 08:29 PT 13.1 SECONDS (9.7-12.2) H 11/03/17 17:21 INR 1.1 11/03/17 17:21 APTT 72 SECONDS (21-34) H D 11/12/17 08:29 - Constitutional Appears: Well, Non-toxic, No Acute Distress - Extremities Exam Additional comments: Dressing remains C/D/I to left foot No strikethrough noted on bandage - Neurological Exam Neurological Exam: Alert, Awake, Oriented x3 - Psychiatric Exam Psychiatric exam: Normal Affect, Normal Mood Assessment and Plan - Assessment and Plan (Free Text) Assessment: 72 year old with 1) left foot Ipneda grade 4 ulceration/ forefoot wet gangrene secondary to PAD. 2) Left Popliteal vein DVT 3) Thrombocytosis Plan: Pt seen and evaluated at bedside Discussed plan with attending, Dr. Marcial Chart, labs, and vitals reviewed - afebrile, WBC 9.6 Wound dressing left intact at this time, as patient is refusing dressing change Continue Heparin Drip DVT prophylaxis Continue pain control per primary team Pt willing to move forward with BKA - requesting that she has access to her leg so it can be picked up at the morgue and cremated Per Dr. Malik, patient's cardiac risk is moderate/intermediate for left BKA Podiatry will continue to follow this patient while in house
--- NOTE | 2017-11-12 19:44 | CP.PCM.PN ---
Subjective - Date & Time of Evaluation Date of Evaluation: 11/12/17 Time of Evaluation: 07:50 - Subjective Subjective: Patient seen and evaluated No cardiac complaints noted Objective - Vital Signs/Intake and Output Vital Signs (last 24 hours): Temp Pulse Resp BP Pulse Ox 98.2 F 73 20 168/92 H 95 11/12/17 16:00 11/12/17 16:00 11/12/17 16:00 11/12/17 16:00 11/12/17 16:00 Intake and Output: 11/12/17 11/13/17 18:59 06:59 Intake Total 872.4 Balance 872.4 - Medications Medications: Current Medications Acetaminophen (Tylenol 325mg Tab) 650 mg PO Q6 PRN PRN Reason: Pain, moderate (4-7) Last Admin: 11/06/17 12:25 Dose: 650 mg Amlodipine Besylate (Norvasc) 10 mg PO DAILY [facility] Last Admin: 11/12/17 09:28 Dose: 10 mg Aspirin (Aspirin) 325 mg PO DAILY [facility] Last Admin: 11/12/17 09:28 Dose: 325 mg Docusate Sodium (Colace) 100 mg PO DAILY [facility] Last Admin: 11/12/17 09:28 Dose: 100 mg Famotidine (Pepcid) 20 mg PO BID [facility] Last Admin: 11/12/17 09:28 Dose: 20 mg Hydromorphone/Sodium Chloride (Dilaudid Hydroelectric Production Technician) 6 mg IV Q4H PRN; Protocol PRN Reason: Pain, moderate (4-7) Last Admin: 11/11/17 16:39 Dose: 6 mg Hydroxyurea (Hydrea) 500 mg PO BID [facility] Last Admin: 11/12/17 09:28 Dose: 500 mg Heparin Sodium/Sodium Chloride (Heparin 39203 Units/250ml 1/2 Normal Saline) 25 ,000 units in 250 mls @ 15.331 mls/hr IV .[id number] PRN; Protocol; 20 UNITS/KG/HR PRN Reason: PROTOCOL Last Admin: 11/12/17 17:24 Dose: 20 units/kg/hr, 15.331 mls/hr Ceftriaxone Sodium 1 gm/ (Sodium Chloride) 100 mls @ 100 mls/hr IVPB DAILY [facility] Last Admin: 11/12/17 09:42 Dose: 100 mls/hr Lidocaine (Lidoderm) 1 ea TD DAILY [facility] Last Admin: 11/12/17 09:42 Dose: Not Given Lidocaine/Prilocaine (Emla) 1 gm TOP DAILY [facility] Last Admin: 11/12/17 09:42 Dose: Not Given Losartan Potassium (Cozaar) 100 mg PO DAILY [facility] - Labs Labs: 11/12/17 08:29 11/12/17 08:29 PT 13.1 SECONDS (9.7-12.2) H 11/03/17 17:21 INR 1.1 11/03/17 17:21 APTT 72 SECONDS (21-34) H D 11/12/17 08:29
[2017-11-13 08:56] LABS: BASO # 0.1 K/uL (0.0-0.2); BASO % 0.8 % (0.0-2.0); EOS # 0.2 K/uL (0.0-0.7); EOS % 2.4 % (0.0-4.0); HEMOGLOBIN 17.3 g/dL (11.0-16.0); LYMPH # 1.3 K/uL (1.0-4.3); MEAN CELL VOLUME 95.4 fL (81.0-99.0); MEAN CORPUSCULAR HEMOGLOBIN 31.9 pg (27.0-31.0); MEAN CORPUSCULAR HGB CONC 33.4 g/dL (33.0-37.0); MEAN PLATELET VOLUME 9.6 fL (7.2-11.7); MONO # 0.8 K/uL (0.0-0.8); NEUT % 74.8 % (50.0-75.0); NRBC % 0.1 % (0.0-2.0); RBC 5.44 Mil/uL (3.80-5.20); RED CELL DISTRIBUTION WIDTH 15.2 % (11.5-14.5); WHITE BLOOD COUNT 9.4 K/uL (4.8-10.8)
[2017-11-13 09:33] LABS: ALB/GLOB RATIO 1.2 (1.0-2.1); ALBUMIN 3.5 g/dL (3.5-5.0); ALT/SGPT 21 U/L (9-52); AST/SGOT 23 U/L (14-36); BLOOD UREA NITROGEN 18 mg/dL (7-17); CALCIUM 8.8 mg/dl (8.6-10.4); GFR AFRICAN-AMERICAN > 60; GFR NON-AFRICAN AMERICAN > 60; MAGNESIUM 1.9 mg/dL (1.6-2.3)
[2017-11-13] MEDS: Lidocaine 5% Patch TD SCH (09:52)
[2017-11-13] MEDS: Lidocaine/Prilocaine 2.5%-2.5% Cream (5 gm) TOP SCH (09:55)
[2017-11-13] MEDS: Heparin25000 units/250ml 1/2NS 25,000 UNITS/250 ML BAG IV PRN (12:00)
--- NOTE | 2017-11-13 13:30 | CP.PCM.CON ---
History of Present Illness - History of Present Illness History of Present Illness: Palliative consult Patient is 71 years old female sent in by Dr. Pierre from his office ,with gangrene of left foot. Patient reports foot ulcer for about 2 years.Per reports n it was a simple blister developed originally .Sshe tried to treat wheeze neomycin but it didn't help. Patient reports following with her primary physician almost every week for the treatment of mentioned ffoot. The pain of the left foot became very severe i, and patient began taking Oxycodone with good results. Upon admission to this hospital patient was performed angiogram and myocardial perfusion. It was decided that the below the knee amputation of left leg was necessary . Patient was also diagnosed with UTI with gram-negative else and safe in IV initiated. White blood count 9.4. Hemoglobin 17.3, BUN 18, creatinine 0.7. Past medical history 1. Hypertension 2. Thrombocytosis Social history 1. Single, lives alone, she is the only child 2. Has a niece who visits often Family Hx 1. Parents from natural causes. Denies significant family medical history Review of Systems - Constitutional Additional comments: Severe left foot pain - EENT Eyes: absent: As Per HPI, Blind Spots, Blurred Vision, Change in Vision, Decreased Night Vision, Diplopia, Discharge, Dry Eye, Exophthalmos, Floaters, Irritation, Itchy Eyes, Loss of Peripheral Vision, Pain, Photophobia, Requires Corrective Lenses, Sees Flashes, Spots in Vision, Tunnel Vision, Other Visual Disturbances, Loss of Vision, Other Ears: absent: As Per HPI, Decreased Hearing, Ear Discharge, Ear Pain, Tinnitus, Abnormal Hearing, Disequilibrium, Dizziness, Other Nose/Mouth/Throat: absent: As Per HPI, Epistaxis, Nasal Congestion, Nasal Discharge, Nasal Obstruction, Nasal Trauma, Nose Pain, Post Nasal Drip, Sinus Pain, Sinus Pressure, Bleeding Gums, Change in Voice, Dental Pain, Dry Mouth, Dysphagia, Halitosis, Hoarsness, Lip Swelling, Mouth Lesions, Mouth Pain, Odynophagia, Sore Throat, Throat Swelling, Tongue Swelling, Facial Pain, Neck Pain, Neck Mass, Other - Cardiovascular Cardiovascular: Leg Ulcers - Respiratory Respiratory: absent: As Per HPI, Cough, Dyspnea, Hemoptysis, Dyspnea on Exertion , Wheezing, Snoring, Stridor, Pain on Inspiration, Chest Congestion, Excessive Mucous Production, Change in Mucous Color, Pain with Coughing, Other - Gastrointestinal Gastrointestinal: absent: As Per HPI, Abdominal Pain, Belching, Bloating, Change in Bowel Habits, Change in Stool Character, Coffee Ground Emesis, Constipation, Cramping, Diarrhea, Dyspepsia, Dysphagia, Early Satiety, Excessive Flatus, Fecal Incontinence, Heartburn, Hematemesis, Hematochezia, Loose Stools, Melena, Nausea, Odynophagia, Temesmus, Vomiting, Other - Genitourinary Genitourinary: absent: As Per HPI, Change in Urinary Stream, Difficulty Urinating, Dysuria, Flank Pain, Hematuria, Pyuria, Nocturia, Urinary Incontinence, Urinary Frequency, Urinary Hesitance, Urinary Urgency, Voiding Freq/Small Amts, Freq UTI, Hx Renal/Bladder Calculi, Hx /Renal Surgery, Bladder Distension, Other - Reproductive: Female Reproductive:Female: Post Menopausal - Menstruation Menstruation: Post Menopausal - Musculoskeletal Musculoskeletal: Deformity, Joint Swelling Additional comments: Severe left foot pain - Integumentary Integumentary: Skin Ulcer, Wounds - Neurological Neurological: absent: As Per HPI, Abnormal Gait, Abnormal Hearing, Abnormal Movements, Abnormal Speech, Behavioral Changes, Burning Sensations, Confusion, Convulsions, Disequilibrium, Dizziness, Numbness, Focal Weakness, Frequent Falls , Headaches, Lack of Coordination, Loss of Vision, Memory Loss, Paresthesias, Radicular Pain, Restless Legs, Sensory Deficit, Syncope, Tingling, Tremor, Vertigo, Weakness, Other Visual Disturbances, Other - Psychiatric Psychiatric: Anxiety, Depression - Endocrine Endocrine: absent: As Per HPI, Change in Body Appearance, Change in Libido, Cold Intolorance, Deepening of Voice, Excessive Sweating, Fatigue, Flushing, Heat Intolorance, Increase in Ring/Shoe/Hat Size, Palpitations, Polydipsia, Polyphagia, Polyuria, Other - Hematologic/Lymphatic Hematologic: absent: As Per HPI, Easy Bleeding, Easy Bruising, Lymphadenopathy, Other Past Patient History - Infectious Disease Hx of Infectious Diseases: None - Past Medical History & Family History Past Medical History?: Yes - Past Social History Smoking Status: Never Smoked - CARDIAC Hx Hypertension: Yes - HEMATOLOGICAL/ONCOLOGICAL Hx Blood Disorders: Yes Other/Comment: Hx of elevated platelet count. - MUSCULOSKELETAL/RHEUMATOLOGICAL Hx Falls: No - PSYCHIATRIC Hx Substance Use: No - SURGICAL HISTORY Hx Tonsillectomy: Yes - ANESTHESIA Hx Anesthesia: Yes Hx Anesthesia Reactions: No Hx Malignant Hyperthermia: No Meds Allergies/Adverse Reactions: Allergies Allergy/AdvReac Type Severity Reaction Status Date / Time No Known Allergies Allergy Verified 11/03/17 15:26 - Medications Medications: Current Medications Acetaminophen (Tylenol 325mg Tab) 650 mg PO Q6 PRN PRN Reason: Pain, moderate (4-7) Last Admin: 11/06/17 12:25 Dose: 650 mg Amlodipine Besylate (Norvasc) 10 mg PO DAILY [facility] Last Admin: 11/13/17 09:51 Dose: 10 mg Aspirin (Aspirin) 325 mg PO DAILY [facility] Last Admin: 11/13/17 09:50 Dose: 325 mg Docusate Sodium (Colace) 100 mg PO DAILY [facility] Last Admin: 11/13/17 09:50 Dose: 100 mg Famotidine (Pepcid) 20 mg PO BID [facility] Last Admin: 11/13/17 09:54 Dose: 20 mg Hydromorphone/Sodium Chloride (Dilaudid Director Of Collections) 6 mg IV Q4H PRN; Protocol PRN Reason: Pain, moderate (4-7) Last Admin: 11/11/17 16:39 Dose: 6 mg Hydroxyurea (Hydrea) 500 mg PO BID [facility] Last Admin: 11/13/17 09:51 Dose: 500 mg Heparin Sodium/Sodium Chloride (Heparin 23108 Units/250ml 1/2 Normal Saline) 25 ,000 units in 250 mls @ 15.331 mls/hr IV .[id number] PRN; Protocol; 20 UNITS/KG/HR PRN Reason: PROTOCOL Last Admin: 11/13/17 12:00 Dose: 20 units/kg/hr, 15.331 mls/hr Ceftriaxone Sodium 1 gm/ (Sodium Chloride) 100 mls @ 100 mls/hr IVPB DAILY [facility] Last Admin: 11/13/17 09:52 Dose: 100 mls/hr Lidocaine (Lidoderm) 1 ea TD DAILY [facility] Last Admin: 11/13/17 09:52 Dose: 1 ea Lidocaine/Prilocaine (Emla) 1 gm TOP DAILY [facility] Last Admin: 11/13/17 09:55 Dose: Not Given Losartan Potassium (Cozaar) 100 mg PO DAILY [facility] Last Admin: 11/13/17 09:50 Dose: 100 mg Physical Exam - Constitutional Appears: No Acute Distress - Head Exam Head Exam: ATRAUMATIC, NORMAL INSPECTION, NORMOCEPHALIC - Eye Exam Eye Exam: EOMI, Normal appearance, PERRL Pupil Exam: NORMAL ACCOMODATION, PERRL - ENT Exam ENT Exam: Mucous Membranes Moist, Normal Exam - Neck Exam Neck exam: Positive for: Normal Inspection - Respiratory Exam Respiratory Exam: NORMAL BREATHING PATTERN - Cardiovascular Exam Cardiovascular Exam: REGULAR RHYTHM - GI/Abdominal Exam GI & Abdominal Exam: Normal Bowel Sounds, Soft - Rectal Exam Rectal Exam: Deferred - Exam Exam: NORMAL INSPECTION - Extremities Exam Additional comments: Left foot dressing, skin cold to touch, and very painful to touch - Back Exam Back exam: NORMAL INSPECTION - Neurological Exam Neurological exam: Alert, Oriented x3 - Psychiatric Exam Psychiatric exam: Anxious, Depressed - Skin Skin Exam: Normal Color Results - Vital Signs Recent Vital Signs: Last Vital Signs Temp 98.0 F 11/13/17 08:00 Pulse 68 11/13/17 08:00 Resp 18 11/13/17 08:00 BP 177/76 H 11/13/17 08:00 Pulse Ox 95 11/13/17 08:00 - Labs Result Diagrams: 11/13/17 08:43 11/13/17 08:43 Labs: Laboratory Results - last 24 hr 11/13/17 11/13/17 11/13/17 08:43 08:43 08:43 WBC 9.4 RBC 5.44 H Hgb 17.3 H Hct 51.9 H MCV 95.4 MCH 31.9 H MCHC 33.4 RDW 15.2 H Plt Count 604 H MPV 9.6 Neut % (Auto) 74.8 Lymph % (Auto) 14.0 L [place] % (Auto) 8.0 Eos % (Auto) 2.4 Baso % (Auto) 0.8 Neut # (Auto) 7.0 Lymph # (Auto) 1.3 [place] # (Auto) 0.8 Eos # (Auto) 0.2 Baso # (Auto) 0.1 APTT 85 H D Sodium 135 Potassium 4.0 Chloride 100 Carbon Dioxide 25 Anion Gap 14 BUN 18 H Creatinine 0.7 Est GFR ( Amer) > 60 Est GFR (Non-Af Amer) > 60 POC Glucose (mg/dL) Random Glucose 100 Calcium 8.8 Magnesium 1.9 Total Bilirubin 0.7 AST 23 ALT 21 Alkaline Phosphatase 59 Total Protein 6.3 Albumin 3.5 Globulin 2.8 Albumin/Globulin Ratio 1.2 11/13/17 11:44 WBC RBC Hgb Hct MCV MCH MCHC RDW Plt Count MPV Neut % (Auto) Lymph % (Auto) [place] % (Auto) Eos % (Auto) Baso % (Auto) Neut # (Auto) Lymph # (Auto) [place] # (Auto) Eos # (Auto) Baso # (Auto) APTT Sodium Potassium Chloride Carbon Dioxide Anion Gap BUN Creatinine Est GFR ( Amer) Est GFR (Non-Af Amer) POC Glucose (mg/dL) 141 H Random Glucose Calcium Magnesium Total Bilirubin AST ALT Alkaline Phosphatase Total Protein Albumin Globulin Albumin/Globulin Ratio Assessment & Plan - Assessment and Plan (Free Text) Assessment: Palliative consult Called status full call. There is no advanced directive on the chart. BPS 20% I reviewed medical records all the diagnostic studies into reviewed and examined patient in the bed. Patient is alert, orientated 3, in no acute distress. Head is normocephalic, no masses, normal exam. Denies headache, denies dizziness. Neck is supple, denies difficulties swallowing, uvula midline Eyes, normal inspection, denies blurry vision. Bed sounds are normal, there is no cough, denies shortness of breath. Abdomen is soft, with active bowel sounds , denies constipation. Reports severe pain to the left foot, left foot is wrapped in the dressing. Nonweight bearing to the left foot. CONTROL SYSTEM MANAGER Dilaudid in use. Patient reports with relief from pain.Blood pressure 177 on a 76, HR 68, Goals of care discussed. Patient admits being very anxious about coming surgery in a.m. patient was seen by Dr. Celestin this morning, and informed about neccassity for the procedure. Patient reports having excellent support system from the family and friends. Patient reports wanting her amputated leg to be picked up by thr home and cremated. I provided emotional support. Patient's niece at the bedside. Pastoral care offered.. Patient refused. Patient has her own integrity director coming from the [place] to visit her. Code status wasn't discussed as patient is at the state of anxiety and she is not capable of discussing these kind of topics or making any decisions Impression 1. acutely ill patient with gangrene of left foot, with pending amputation in a.m. 2. Patient reports high anxiety due to scheduled surgery 3. Severe pain of left foot due to necrosis, controlled by CONTROL SYSTEM MANAGER Dilaudid Suggestions 1. Will provide quite environment and allow patient plenty of rest 2. Would offer patient is sleeping pill at bedtime to promote good night sleep before the surgery 3. Continue pain management Palliative care will continue to follow up will be dissipation and to offer emotional support Thank you for consultation palliative care
--- NOTE | 2017-11-13 17:41 | CP.PCM.PN ---
Subjective - Date & Time of Evaluation Date of Evaluation: 11/03/17 Time of Evaluation: 18:00 - Subjective Subjective: The patient was seen in follow up. her labs have been stable. She is getting work up for surgery and clearance. The patient is prepared for the amputation. Plan- Continue hydrea for now. Hold off on phlebotomy. Objective - Vital Signs/Intake and Output Vital Signs (last 24 hours): Temp Pulse Resp BP Pulse Ox 98.0 F 68 18 177/76 H 95 11/13/17 08:00 11/13/17 08:00 11/13/17 08:00 11/13/17 08:00 11/13/17 08:00 Intake and Output: 11/13/17 11/13/17 06:59 18:59 Intake Total 120 250 Balance 120 250 - Medications Medications: Current Medications Acetaminophen (Tylenol 325mg Tab) 650 mg PO Q6 PRN PRN Reason: Pain, moderate (4-7) Last Admin: 11/06/17 12:25 Dose: 650 mg Amlodipine Besylate (Norvasc) 10 mg PO DAILY [facility] Last Admin: 11/13/17 09:51 Dose: 10 mg Aspirin (Aspirin) 325 mg PO DAILY [facility] Last Admin: 11/13/17 09:50 Dose: 325 mg Docusate Sodium (Colace) 100 mg PO DAILY [facility] Last Admin: 11/13/17 09:50 Dose: 100 mg Famotidine (Pepcid) 20 mg PO BID [facility] Last Admin: 11/13/17 09:54 Dose: 20 mg Hydromorphone/Sodium Chloride (Dilaudid Credit Collections Rep) 6 mg IV Q4H PRN; Protocol PRN Reason: Pain, moderate (4-7) Last Admin: 11/11/17 16:39 Dose: 6 mg Hydroxyurea (Hydrea) 500 mg PO BID [facility] Last Admin: 11/13/17 09:51 Dose: 500 mg Heparin Sodium/Sodium Chloride (Heparin 79127 Units/250ml 1/2 Normal Saline) 25 ,000 units in 250 mls @ 15.331 mls/hr IV .[id number] PRN; Protocol; 20 UNITS/KG/HR PRN Reason: PROTOCOL Last Admin: 11/13/17 12:00 Dose: 20 units/kg/hr, 15.331 mls/hr Ceftriaxone Sodium 1 gm/ (Sodium Chloride) 100 mls @ 100 mls/hr IVPB DAILY [facility] Last Admin: 11/13/17 09:52 Dose: 100 mls/hr Lidocaine (Lidoderm) 1 ea TD DAILY [facility] Last Admin: 11/13/17 09:52 Dose: 1 ea Lidocaine/Prilocaine (Emla) 1 gm TOP DAILY [facility] Last Admin: 11/13/17 09:55 Dose: Not Given Losartan Potassium (Cozaar) 100 mg PO DAILY [facility] Last Admin: 11/13/17 09:50 Dose: 100 mg - Labs Labs: 11/13/17 08:43 11/13/17 08:43 PT 13.1 SECONDS (9.7-12.2) H 11/03/17 17:21 INR 1.1 11/03/17 17:21 APTT 85 SECONDS (21-34) H D 11/13/17 08:43
--- NOTE | 2017-11-13 19:46 | CP.PCM.PN ---
Subjective - Date & Time of Evaluation Date of Evaluation: 11/13/17 Time of Evaluation: 08:10 - Subjective Subjective: PGY1 Medicine Note for Dr. Gallegos Patient seen and examined this morning at bedside. No acute events overnight. Patient states she slept well and is only experiencing moderate pain in her left foot currently. Discussed with patient about her desires to keep her leg to have a proper ceremony for it after the procedure. Patient Brittany and Dr. Pierre have talked to her as well. She is currently scheduled for surgery on Monday with Dr. Pierre. She has no other complaints at this time. Denies fevers, chills, nausea, vomiting, diarrhea, chest pain, abdominal pain, shortness of breath or headaches. Objective - Vital Signs/Intake and Output Vital Signs (last 24 hours): Temp Pulse Resp BP Pulse Ox 98.0 F 65 19 131/70 95 11/13/17 16:00 11/13/17 16:00 11/13/17 16:00 11/13/17 16:00 11/13/17 16:00 Intake and Output: 11/13/17 11/14/17 18:59 06:59 Intake Total 250 Balance 250 - Medications Medications: Current Medications Acetaminophen (Tylenol 325mg Tab) 650 mg PO Q6 PRN PRN Reason: Pain, moderate (4-7) Last Admin: 11/06/17 12:25 Dose: 650 mg Amlodipine Besylate (Norvasc) 10 mg PO DAILY [facility] Last Admin: 11/13/17 09:51 Dose: 10 mg Aspirin (Aspirin) 325 mg PO DAILY [facility] Last Admin: 11/13/17 09:50 Dose: 325 mg Docusate Sodium (Colace) 100 mg PO DAILY [facility] Last Admin: 11/13/17 09:50 Dose: 100 mg Famotidine (Pepcid) 20 mg PO BID [facility] Last Admin: 11/13/17 18:30 Dose: 20 mg Hydromorphone/Sodium Chloride (Dilaudid Corn Lab Technician) 6 mg IV Q4H PRN; Protocol PRN Reason: Pain, moderate (4-7) Last Admin: 11/11/17 16:39 Dose: 6 mg Hydroxyurea (Hydrea) 500 mg PO BID [facility] Last Admin: 11/13/17 18:31 Dose: 500 mg Heparin Sodium/Sodium Chloride (Heparin 87250 Units/250ml 1/2 Normal Saline) 25 ,000 units in 250 mls @ 15.331 mls/hr IV .[id number] PRN; Protocol; 20 UNITS/KG/HR PRN Reason: PROTOCOL Last Admin: 11/13/17 12:00 Dose: 20 units/kg/hr, 15.331 mls/hr Ceftriaxone Sodium 1 gm/ (Sodium Chloride) 100 mls @ 100 mls/hr IVPB DAILY [facility] Last Admin: 11/13/17 09:52 Dose: 100 mls/hr Lidocaine (Lidoderm) 1 ea TD DAILY [facility] Last Admin: 11/13/17 09:52 Dose: 1 ea Lidocaine/Prilocaine (Emla) 1 gm TOP DAILY [facility] Last Admin: 11/13/17 09:55 Dose: Not Given Losartan Potassium (Cozaar) 100 mg PO DAILY [facility] Last Admin: 11/13/17 09:50 Dose: 100 mg - Labs Labs: 11/13/17 08:43 11/13/17 08:43 PT 13.1 SECONDS (9.7-12.2) H 11/03/17 17:21 INR 1.1 11/03/17 17:21 APTT 85 SECONDS (21-34) H D 11/13/17 08:43 - Constitutional Appears: Non-toxic, No Acute Distress - Head Exam Head Exam: ATRAUMATIC - Eye Exam Eye Exam: EOMI, Normal appearance - ENT Exam ENT Exam: Mucous Membranes Moist - Respiratory Exam Respiratory Exam: Clear to Ausculation Bilateral, NORMAL BREATHING PATTERN. absent: Accessory Muscle Use, Rales, Wheezes, Respiratory Distress - Cardiovascular Exam Cardiovascular Exam: REGULAR RHYTHM, +S1, +S2 - GI/Abdominal Exam GI & Abdominal Exam: Soft, Normal Bowel Sounds. absent: Distended, Firm, Guarding, Rigid, Tenderness, Rebound - Extremities Exam Extremities Exam: absent: Pedal Edema Additional comments: Left LE - no palpable pulses w/ gangrenous tissue located on digits 1-4. Tender to palpation. Right LE - no palpable pulses but sensation intact. no gangrenous tissue seen. - Neurological Exam Neurological Exam: Alert, Awake, Oriented x3 - Psychiatric Exam Psychiatric exam: Normal Affect, Normal Mood - Skin Skin Exam: Dry, Normal Color, Warm Additional comments: except as noted on left lower extremity Assessment and Plan - Assessment and Plan (Free Text) Plan: 1.Gangrene of the left foot * Patient seen at Dr. Pierre's and Cholo's office on 11/03/17 were it was cleaned, soaked and re-bandaged. She was referred to the emergency room due to the severity. * Lower extremity duplex showed occlusion of the left popliteal and anterior tibial * Heparin Bolus given in the emergency department. Heparin drip started in the emergency department afterwards. * Heparin drip continued * Dilaudid prn for pain * Dr. Pierre consulted. 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 * Angio 11/03/17: 1. Moderate atherosclerotic disease of the right leg with 50-60 % stenosis of the distal SFA. The popliteal artery occludes behind the knee. Intermittent reconstitution of the peroneal artery and posterior tibial artery with the posterior tibial artery crossing the ankle 2. Multifocal short segment stenoses of the left SFA with occlusion of the distal SFA. Intermittent reconstitution of the posterior tibial artery mid calf to the level of the ankle. Small arterial collaterals noted on the dorsum of the foot. 3. Mild splenomegaly with splenic infarct. 4. Scattered colonic diverticula. 5. Pleural-based nodular density in the right lower lobe. For low-risk or high- risk patients consider a follow-up chest CT at 3 months. If unchanged consider an additional follow-up CT at 18-24 months. Alternatively (or additionally) PET /CT or tissue sampling could be performed. 6. Hepatomegaly * Podiatry, Dr. Marcial, consulted; help appreciated 2.Hypertensive urgency * BP upon admission 225/108. * Patient normal range of SBP is in the 160's. Patient is asymptomatic upon examination. * Clonindine .2mg given in the Emergency room. * Discontinued Cardizem 60mg Q8 (increased from 30mg on 11/06/17) * Holding parameters: BP less than 140 * Amlodipine 10mg PO daily and Losartan 25mg PO daily * Heart healthy diet (2g Na restriction) * Cardiology consulted, Dr. Gan; help appreciated * Echo: moderate-severe concentric LVH; mild LV diastolic dysfunction; mildly dilated LA; trace to mild MR; LVEF 66% * Patient was scheduled for stress test on 11/08; however, patient refused. * Stress test (11/10/17): normal findings * Per Dr. Gan, There is no high cardiac risk feature noted. Likely Cardiac risk is moderate or Intermediate (3-5%). If benefit outweighs the risk please proceed with the surgery. 3.Thrombocytosis * 850 upon admission; trending down * Chief Maintenance Supervisor consulted, Dr. Aguilar; help appreciated * Dr. Aguilar started patient on Hydera 500mg PO BID on 11/06/17. 4. Palliative Care * Palliative Care consulted for POLST * Patient is unable to make end of life decisions at this time due to anxiety about surgery. * Code status not discussed * Will continue to follow throughout hospital course. Prophylaxis: * Pepcid 20mg BID * NO SCDs * Heparin Drip * Heart Healthy diet Dispo: Discussed with patient about her desires to keep her leg to have a proper ceremony for it after the procedure. Patient rep Brittany and Dr. Pierre have talked to her as well. Per Patient rep, home as be contacted and Dr. Pierre will make sure the leg goes to the proper place. Will plan for Rehab at [facility] upon discharge from hospital. Case discussed with Dr. Gallegos. Carlos Shanks PGY1
--- NOTE | 2017-11-13 21:45 | CP.PCM.PN ---
Subjective - Date & Time of Evaluation Date of Evaluation: 11/13/17 Time of Evaluation: 14:10 - Subjective Subjective: Patient seen and evaluated No new cardiac events noted Continue current meds Objective - Vital Signs/Intake and Output Vital Signs (last 24 hours): Temp Pulse Resp BP Pulse Ox 98.0 F 65 19 131/70 95 11/13/17 16:00 11/13/17 16:00 11/13/17 16:00 11/13/17 16:00 11/13/17 16:00 Intake and Output: 11/13/17 11/14/17 18:59 06:59 Intake Total 250 Balance 250 - Medications Medications: Current Medications Acetaminophen (Tylenol 325mg Tab) 650 mg PO Q6 PRN PRN Reason: Pain, moderate (4-7) Last Admin: 11/06/17 12:25 Dose: 650 mg Amlodipine Besylate (Norvasc) 10 mg PO DAILY [facility] Last Admin: 11/13/17 09:51 Dose: 10 mg Aspirin (Aspirin) 325 mg PO DAILY [facility] Last Admin: 11/13/17 09:50 Dose: 325 mg Docusate Sodium (Colace) 100 mg PO DAILY [facility] Last Admin: 11/13/17 09:50 Dose: 100 mg Famotidine (Pepcid) 20 mg PO BID [facility] Last Admin: 11/13/17 18:30 Dose: 20 mg Hydromorphone/Sodium Chloride (Dilaudid Rubber Heel And Sole Press Tender) 6 mg IV Q4H PRN; Protocol PRN Reason: Pain, moderate (4-7) Last Admin: 11/11/17 16:39 Dose: 6 mg Hydroxyurea (Hydrea) 500 mg PO BID [facility] Last Admin: 11/13/17 18:31 Dose: 500 mg Heparin Sodium/Sodium Chloride (Heparin 78053 Units/250ml 1/2 Normal Saline) 25 ,000 units in 250 mls @ 15.331 mls/hr IV .[id number] PRN; Protocol; 20 UNITS/KG/HR PRN Reason: PROTOCOL Last Admin: 11/13/17 12:00 Dose: 20 units/kg/hr, 15.331 mls/hr Ceftriaxone Sodium 1 gm/ (Sodium Chloride) 100 mls @ 100 mls/hr IVPB DAILY [facility] Last Admin: 11/13/17 09:52 Dose: 100 mls/hr Lidocaine (Lidoderm) 1 ea TD DAILY [facility] Last Admin: 11/13/17 09:52 Dose: 1 ea Lidocaine/Prilocaine (Emla) 1 gm TOP DAILY [facility] Last Admin: 11/13/17 09:55 Dose: Not Given Losartan Potassium (Cozaar) 100 mg PO DAILY [facility] Last Admin: 11/13/17 09:50 Dose: 100 mg - Labs Labs: 11/13/17 08:43 11/13/17 08:43 PT 13.1 SECONDS (9.7-12.2) H 11/03/17 17:21 INR 1.1 11/03/17 17:21 APTT 85 SECONDS (21-34) H D 11/13/17 08:43
--- NOTE | 2017-11-14 07:39 | CP.PCM.PN ---
Subjective - Date & Time of Evaluation Date of Evaluation: 11/14/17 Time of Evaluation: 07:38 - Subjective Subjective: PGY1 Medicine Note for Dr. Gallegos Patient seen and examined at bedside this morning. No acute events overnight. Patient is scheduled for BKA tomorrow morning with Dr. Pierre. Patient is in good spirits and states that her pain has been well controlled. She has no other complaints at this time. Denies fevers, chills, nausea, vomiting, diarrhea , chest pain, abdominal pain, shortness of breath or headaches. Objective - Vital Signs/Intake and Output Vital Signs (last 24 hours): Temp Pulse Resp BP Pulse Ox 97.4 F L 69 20 164/74 H 95 11/14/17 00:35 11/14/17 00:35 11/14/17 00:35 11/14/17 00:35 11/14/17 00:35 - Medications Medications: Current Medications Acetaminophen (Tylenol 325mg Tab) 650 mg PO Q6 PRN PRN Reason: Pain, moderate (4-7) Last Admin: 11/06/17 12:25 Dose: 650 mg Amlodipine Besylate (Norvasc) 10 mg PO DAILY [facility] Last Admin: 11/13/17 09:51 Dose: 10 mg Aspirin (Aspirin) 325 mg PO DAILY [facility] Last Admin: 11/13/17 09:50 Dose: 325 mg Docusate Sodium (Colace) 100 mg PO DAILY [facility] Last Admin: 11/13/17 09:50 Dose: 100 mg Famotidine (Pepcid) 20 mg PO BID [facility] Last Admin: 11/13/17 18:30 Dose: 20 mg Hydromorphone/Sodium Chloride (Dilaudid Leather Seasoner) 6 mg IV Q4H PRN; Protocol PRN Reason: Pain, moderate (4-7) Last Admin: 11/14/17 03:39 Dose: 6 mg Hydroxyurea (Hydrea) 500 mg PO BID [facility] Last Admin: 11/13/17 18:31 Dose: 500 mg Heparin Sodium/Sodium Chloride (Heparin 09717 Units/250ml 1/2 Normal Saline) 25 ,000 units in 250 mls @ 15.331 mls/hr IV .[id number] PRN; Protocol; 20 UNITS/KG/HR PRN Reason: PROTOCOL Last Admin: 11/13/17 12:00 Dose: 20 units/kg/hr, 15.331 mls/hr Ceftriaxone Sodium 1 gm/ (Sodium Chloride) 100 mls @ 100 mls/hr IVPB DAILY [facility] Last Admin: 11/13/17 09:52 Dose: 100 mls/hr Lidocaine (Lidoderm) 1 ea TD DAILY [facility] Last Admin: 11/13/17 09:52 Dose: 1 ea Lidocaine/Prilocaine (Emla) 1 gm TOP DAILY [facility] Last Admin: 11/13/17 09:55 Dose: Not Given Losartan Potassium (Cozaar) 100 mg PO DAILY [facility] Last Admin: 11/13/17 09:50 Dose: 100 mg - Labs Labs: 11/13/17 08:43 11/13/17 08:43 PT 13.1 SECONDS (9.7-12.2) H 11/03/17 17:21 INR 1.1 11/03/17 17:21 APTT 85 SECONDS (21-34) H D 11/13/17 08:43 - Constitutional Appears: Non-toxic, No Acute Distress - Head Exam Head Exam: ATRAUMATIC, NORMOCEPHALIC - Eye Exam Eye Exam: EOMI, Normal appearance Pupil Exam: NORMAL ACCOMODATION - ENT Exam ENT Exam: Mucous Membranes Moist - Respiratory Exam Respiratory Exam: Clear to Ausculation Bilateral, NORMAL BREATHING PATTERN. absent: Accessory Muscle Use, Rales, Wheezes, Respiratory Distress - Cardiovascular Exam Cardiovascular Exam: REGULAR RHYTHM, +S1, +S2 - GI/Abdominal Exam GI & Abdominal Exam: Soft, Normal Bowel Sounds. absent: Distended, Firm, Guarding, Rigid, Tenderness - Extremities Exam Extremities Exam: absent: Calf Tenderness, Pedal Edema - Back Exam Additional comments: Left LE - no palpable pulses w/ gangrenous tissue located on digits 1-4. Tender to palpation. Right LE - no gangrenous tissue seen. - Neurological Exam Neurological Exam: Alert, Awake, Oriented x3 - Psychiatric Exam Psychiatric exam: Normal Affect, Normal Mood - Skin Skin Exam: Dry, Warm Additional comments: except as noted on left lower extremity Assessment and Plan - Assessment and Plan (Free Text) Plan: 1.Gangrene of the left foot * Patient is scheduled for BKA tomorrow, 11/15/17 - NPO after midnight * Patient seen at Dr. Pierre's and Cholo's office on 11/03/17 were it was cleaned, soaked and re-bandaged. She was referred to the emergency room due to the severity. * Lower extremity duplex showed occlusion of the left popliteal and anterior tibial * Heparin Bolus given in the emergency department. Heparin drip started in the emergency department afterwards. * Heparin drip continued * Dilaudid prn for pain * Dr. Pierre consulted. 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 Moderate atherosclerotic disease of the right leg with 50-60 % stenosis of the distal SFA. The popliteal artery occludes behind the knee. Intermittent reconstitution of the peroneal artery and posterior tibial artery with the posterior tibial artery crossing the ankle 2. Multifocal short segment stenoses of the left SFA with occlusion of the distal SFA. Intermittent reconstitution of the posterior tibial artery mid calf to the level of the ankle. Small arterial collaterals noted on the dorsum of the foot. 3. Mild splenomegaly with splenic infarct. 4. Scattered colonic diverticula. 5. Pleural-based nodular density in the right lower lobe. For low-risk or high- risk patients consider a follow-up chest CT at 3 months. If unchanged consider an additional follow-up CT at 18-24 months. Alternatively (or additionally) PET /CT or tissue sampling could be performed. 6. Hepatomegaly * Podiatry, Dr. Marcial, consulted; help appreciated 2.Hypertensive urgency * BP upon admission 225/108. * Patient normal range of SBP is in the 160's. Patient is asymptomatic upon examination. * Clonindine .2mg given in the Emergency room. * Amlodipine 10mg PO daily and Losartan 25mg PO daily * Heart healthy diet (2g Na restriction) * Cardiology consulted, Dr. Gan; help appreciated * Echo: moderate-severe concentric LVH; mild LV diastolic dysfunction; mildly dilated LA; trace to mild MR; LVEF 66% * Patient was scheduled for stress test on 11/08; however, patient refused. * Stress test (11/10/17): normal findings * Per Dr. Gan, There is no high cardiac risk feature noted. Likely Cardiac risk is moderate or Intermediate (3-5%). If benefit outweighs the risk please proceed with the surgery. 3.Thrombocytosis * 850 upon admission; trending down * Amalgamator consulted, Dr. Aguilar; help appreciated * Dr. Aguilar started patient on Hydera 500mg PO BID on 11/06/17. 4. Palliative Care * Palliative Care consulted for POLST * Patient is unable to make end of life decisions at this time due to anxiety about surgery. * Code status not discussed * Will continue to follow throughout hospital course. Prophylaxis: * Pepcid 20mg BID * NO SCDs * Heparin Drip * Heart Healthy diet Dispo: Discussed with patient about her desires to keep her leg to have a proper ceremony for it after the procedure. Patient rep Brittany and Dr. Pierre have talked to her as well. Per Patient rep, home as be contacted and Dr. Pierre will make sure the leg goes to the proper place. Will plan for Rehab at [facility] [place] upon discharge from hospital. Case discussed with Dr. Gallegos. Carlos Shanks PGY1
--- NOTE | 2017-11-14 07:57 | CP.PCM.PN ---
Subjective - Date & Time of Evaluation Date of Evaluation: 11/14/17 Time of Evaluation: 06:30 - Subjective Subjective: Vascular Surgery- Dr. Pierre patient seen and examined at bedside this AM. No acute events overnight. No new complaints. Continued pain in LLE. Denies fevers, chills, chest pain, shortness of breath. Objective - Vital Signs/Intake and Output Vital Signs (last 24 hours): Temp Pulse Resp BP Pulse Ox 97.4 F L 69 20 164/74 H 95 11/14/17 00:35 11/14/17 00:35 11/14/17 00:35 11/14/17 00:35 11/14/17 00:35 - Medications Medications: Current Medications Acetaminophen (Tylenol 325mg Tab) 650 mg PO Q6 PRN PRN Reason: Pain, moderate (4-7) Last Admin: 11/06/17 12:25 Dose: 650 mg Amlodipine Besylate (Norvasc) 10 mg PO DAILY [facility] Last Admin: 11/13/17 09:51 Dose: 10 mg Aspirin (Aspirin) 325 mg PO DAILY [facility] Last Admin: 11/13/17 09:50 Dose: 325 mg Docusate Sodium (Colace) 100 mg PO DAILY [facility] Last Admin: 11/13/17 09:50 Dose: 100 mg Famotidine (Pepcid) 20 mg PO BID [facility] Last Admin: 11/13/17 18:30 Dose: 20 mg Hydromorphone/Sodium Chloride (Dilaudid Fruit Sorter) 6 mg IV Q4H PRN; Protocol PRN Reason: Pain, moderate (4-7) Last Admin: 11/14/17 03:39 Dose: 6 mg Hydroxyurea (Hydrea) 500 mg PO BID [facility] Last Admin: 11/13/17 18:31 Dose: 500 mg Heparin Sodium/Sodium Chloride (Heparin 00082 Units/250ml 1/2 Normal Saline) 25 ,000 units in 250 mls @ 15.331 mls/hr IV .[id number] PRN; Protocol; 20 UNITS/KG/HR PRN Reason: PROTOCOL Last Admin: 11/13/17 12:00 Dose: 20 units/kg/hr, 15.331 mls/hr Ceftriaxone Sodium 1 gm/ (Sodium Chloride) 100 mls @ 100 mls/hr IVPB DAILY [facility] Last Admin: 11/13/17 09:52 Dose: 100 mls/hr Lidocaine (Lidoderm) 1 ea TD DAILY [facility] Last Admin: 11/13/17 09:52 Dose: 1 ea Lidocaine/Prilocaine (Emla) 1 gm TOP DAILY [facility] Last Admin: 11/13/17 09:55 Dose: Not Given Losartan Potassium (Cozaar) 100 mg PO DAILY [facility] Last Admin: 11/13/17 09:50 Dose: 100 mg - Labs Labs: 11/13/17 08:43 11/13/17 08:43 PT 13.1 SECONDS (9.7-12.2) H 11/03/17 17:21 INR 1.1 11/03/17 17:21 APTT 85 SECONDS (21-34) H D 11/13/17 08:43 - Constitutional Appears: Non-toxic, No Acute Distress - Head Exam Head Exam: ATRAUMATIC - Eye Exam Eye Exam: EOMI. absent: Scleral icterus - Respiratory Exam Respiratory Exam: NORMAL BREATHING PATTERN. absent: Accessory Muscle Use, Respiratory Distress - Cardiovascular Exam Cardiovascular Exam: +S1, +S2. absent: Bradycardia, Tachycardia - GI/Abdominal Exam GI & Abdominal Exam: Soft. absent: Distended, Firm, Guarding, Rigid, Tenderness - Extremities Exam Extremities Exam: Calf Tenderness Additional comments: LLE dressing C/D/I - Neurological Exam Neurological Exam: Alert, Awake, Oriented x3 - Skin Skin Exam: Intact, Warm Assessment and Plan - Assessment and Plan (Free Text) Assessment: 72F s/p Aortofemoral angiography of LLE Plan: Pain control PRN NPO after MN Local wound care as per podiatry plan for BKA tomorrow further recs per Dr. Pierre surgical attending PGY1
[2017-11-14] MEDS: Lidocaine 5% Patch TD SCH (10:58)
[2017-11-14] MEDS: Lidocaine/Prilocaine 2.5%-2.5% Cream (5 gm) TOP SCH (11:12)
[2017-11-14] MEDS ORDERED: Heparin25000 units/250ml 1/2NS 25,000 UNITS/250 ML BAG IV PRN (11:27)
[2017-11-14] MEDS ORDERED: DiphenhydrAMINE 50 mg/ml Inj IVP ONE (21:59)
[2017-11-15 07:39] LABS: BASO # 0.1 K/uL (0.0-0.2); BASO % 1.1 % (0.0-2.0); EOS # 0.4 K/uL (0.0-0.7); EOS % 3.5 % (0.0-4.0); HEMOGLOBIN 17.8 g/dL (11.0-16.0); LYMPH # 1.1 K/uL (1.0-4.3); LYMPH % 10.7 % (20.0-40.0); MEAN CELL VOLUME 95.6 fL (81.0-99.0); MEAN CORPUSCULAR HEMOGLOBIN 33.1 pg (27.0-31.0); MEAN CORPUSCULAR HGB CONC 34.6 g/dL (33.0-37.0); MEAN PLATELET VOLUME 9.4 fL (7.2-11.7); MONO # 0.8 K/uL (0.0-0.8); MONO % 7.6 % (0.0-10.0); NEUT # 8.1 K/uL (1.8-7.0); NEUT % 77.1 % (50.0-75.0); NRBC % 0.1 % (0.0-2.0); RBC 5.37 Mil/uL (3.80-5.20); RED CELL DISTRIBUTION WIDTH 14.7 % (11.5-14.5); WHITE BLOOD COUNT 10.5 K/uL (4.8-10.8)
[2017-11-15 08:13] LABS: ALB/GLOB RATIO 1.1 (1.0-2.1); ALBUMIN 3.5 g/dL (3.5-5.0); ALT/SGPT 18 U/L (9-52); AST/SGOT 25 U/L (14-36); BLOOD UREA NITROGEN 27 mg/dL (7-17); CALCIUM 9.8 mg/dl (8.6-10.4); GFR AFRICAN-AMERICAN > 60; GFR NON-AFRICAN AMERICAN 54
--- NOTE | 2017-11-15 09:57 | CP.PCM.PN ---
Subjective - Date & Time of Evaluation Date of Evaluation: 11/15/17 Time of Evaluation: 09:20 - Subjective Subjective: PGY1 Medicine Note for Dr. Gallegos Patient seen and examined at bedside this morning. Patient is extremely nervous/ anxious about her surgery today. She states she is currently in pain but has not been using her [employer]IE[employer] pump because she thought she was not allowed to use it. The pain is localized to her left foot only. She has no other complaints at this time. Denies fevers, chills, nausea, vomiting, diarrhea, chest pain, abdominal pain, shortness of breath or headaches. Objective - Vital Signs/Intake and Output Vital Signs (last 24 hours): Temp Pulse Resp BP Pulse Ox 97.4 F L 76 20 144/77 96 11/15/17 08:00 11/15/17 08:00 11/15/17 08:00 11/15/17 08:00 11/15/17 08:00 - Medications Medications: Current Medications Acetaminophen (Tylenol 325mg Tab) 650 mg PO Q6 PRN PRN Reason: Pain, moderate (4-7) Last Admin: 11/06/17 12:25 Dose: 650 mg Amlodipine Besylate (Norvasc) 10 mg PO DAILY [facility] Last Admin: 11/14/17 10:58 Dose: 10 mg Aspirin (Aspirin) 325 mg PO DAILY [facility] Last Admin: 11/14/17 10:58 Dose: 325 mg Docusate Sodium (Colace) 100 mg PO DAILY [facility] Last Admin: 11/14/17 10:58 Dose: 100 mg Famotidine (Pepcid) 20 mg PO BID [facility] Last Admin: 11/14/17 18:11 Dose: 20 mg Hydromorphone/Sodium Chloride (Dilaudid Extractor Loader And Unloader) 6 mg IV Q4H PRN; Protocol PRN Reason: Pain, moderate (4-7) Last Admin: 11/14/17 03:39 Dose: 6 mg Hydroxyurea (Hydrea) 500 mg PO BID [facility] Last Admin: 11/14/17 18:11 Dose: 500 mg Ceftriaxone Sodium 1 gm/ (Sodium Chloride) 100 mls @ 100 mls/hr IVPB DAILY [facility] Last Admin: 11/14/17 11:00 Dose: 100 mls/hr Heparin Sodium/Sodium Chloride (Heparin 23013 Units/250ml 1/2 Normal Saline) 25 ,000 units in 250 mls @ 16.066 mls/hr IV .[id number] PRN; Protocol; 22 UNITS/KG/HR PRN Reason: PROTOCOL Last Admin: 11/14/17 13:53 Dose: 22 units/kg/hr, 16.066 mls/hr Lidocaine (Lidoderm) 1 ea TD DAILY [facility] Last Admin: 11/14/17 10:58 Dose: 1 ea Lidocaine/Prilocaine (Emla) 1 gm TOP DAILY [facility] Last Admin: 11/14/17 11:12 Dose: Not Given Losartan Potassium (Cozaar) 100 mg PO DAILY [facility] Last Admin: 11/14/17 10:58 Dose: 100 mg - Labs Labs: 11/15/17 07:11 11/15/17 07:11 PT 13.1 SECONDS (9.7-12.2) H 11/03/17 17:21 INR 1.1 11/03/17 17:21 APTT 88 SECONDS (21-34) H D 11/14/17 21:17 - Constitutional Appears: Non-toxic, No Acute Distress - Head Exam Head Exam: ATRAUMATIC, NORMOCEPHALIC - Eye Exam Eye Exam: EOMI, Normal appearance - ENT Exam ENT Exam: Mucous Membranes Moist - Respiratory Exam Respiratory Exam: Clear to Ausculation Bilateral, NORMAL BREATHING PATTERN. absent: Accessory Muscle Use, Rales, Rhonchi, Wheezes, Respiratory Distress - Cardiovascular Exam Cardiovascular Exam: REGULAR RHYTHM, +S1, +S2 - GI/Abdominal Exam GI & Abdominal Exam: Soft, Normal Bowel Sounds. absent: Distended, Firm, Guarding, Rigid, Tenderness - Extremities Exam Extremities Exam: Tenderness. absent: Calf Tenderness, Pedal Edema Additional comments: Left LE - no palpable pulses w/ gangrenous tissue located on digits 1-4. Tender to palpation. Right LE - no gangrenous tissue seen. - Neurological Exam Neurological Exam: Alert, Awake, Oriented x3 - Psychiatric Exam Psychiatric exam: Normal Affect, Normal Mood - Skin Skin Exam: Dry, Warm Assessment and Plan - Assessment and Plan (Free Text) Plan: 1.Gangrene of the left foot * Patient is scheduled for * Patient seen at Dr. Pierre's and Cholo's office on 11/03/17 were it was cleaned, soaked and re-bandaged. She was referred to the emergency room due to the severity. * Lower extremity duplex showed occlusion of the left popliteal and anterior tibial * Heparin drip continued - held prior to surgery * Dilaudid prn for pain * Dr. Pierre consulted. 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 Moderate atherosclerotic disease of the right leg with 50-60 % stenosis of the distal SFA. The popliteal artery occludes behind the knee. Intermittent reconstitution of the peroneal artery and posterior tibial artery with the posterior tibial artery crossing the ankle 2. Multifocal short segment stenoses of the left SFA with occlusion of the distal SFA. Intermittent reconstitution of the posterior tibial artery mid calf to the level of the ankle. Small arterial collaterals noted on the dorsum of the foot. 3. Mild splenomegaly with splenic infarct. 4. Scattered colonic diverticula. 5. Pleural-based nodular density in the right lower lobe. For low-risk or high- risk patients consider a follow-up chest CT at 3 months. If unchanged consider an additional follow-up CT at 18-24 months. Alternatively (or additionally) PET /CT or tissue sampling could be performed. 6. Hepatomegaly * Podiatry, Dr. Marcial, consulted; help appreciated 2.Hypertensive urgency * BP upon admission 225/108. * Patient normal range of SBP is in the 160's. Patient is asymptomatic upon examination. * Clonindine .2mg given in the Emergency room. * Amlodipine 10mg PO daily and Losartan 25mg PO daily * Heart healthy diet (2g Na restriction) * Cardiology consulted, Dr. Gan; help appreciated * Echo: moderate-severe concentric LVH; mild LV diastolic dysfunction; mildly dilated LA; trace to mild MR; LVEF 66% * Patient was scheduled for stress test on 11/08; however, patient refused. * Stress test (11/10/17): normal findings * Per Dr. Gan, There is no high cardiac risk feature noted. Likely Cardiac risk is moderate or Intermediate (3-5%). If benefit outweighs the risk please proceed with the surgery. 3.Thrombocytosis * 850 upon admission; trending down * Practical Nursing Teacher consulted, Dr. Aguilar; help appreciated * Dr. Aguilar started patient on Hydera 500mg PO BID on 11/06/17. 4. Palliative Care * Palliative Care consulted for POLST * Patient is unable to make end of life decisions at this time due to anxiety about surgery. * Code status not discussed * Will continue to follow throughout hospital course. Prophylaxis: * Pepcid 20mg BID * NO SCDs * Heparin Drip - held prior to surgery * Heart Healthy diet Dispo: Discussed with patient about her desires to keep her leg to have a proper ceremony for it after the procedure. Patient rep Brittany and Dr. Pierre have talked to her as well. Per Patient rep, home as be contacted and Dr. Pierre will make sure the leg goes to the proper place. [place] plan [place] [facility] [place] hospital. Case discussed with Dr. Gallegos. Carlos Shanks PGY1
[2017-11-15] MEDS: Lidocaine 5% Patch TD SCH (10:34)
[2017-11-15] MEDS: Lidocaine/Prilocaine 2.5%-2.5% Cream (5 gm) TOP SCH (10:39)
--- NOTE | 2017-11-15 13:36 | RAD ---
HISTORY: pre-op COMPARISON: No prior. FINDINGS: LUNGS: No active pulmonary disease. PLEURA: No significant pleural effusion identified, no pneumothorax apparent. CARDIOVASCULAR: No radiographic findings to suggest acute or significant cardiovascular disease. OSSEOUS STRUCTURES: No significant abnormalities. VISUALIZED UPPER ABDOMEN: Normal. OTHER FINDINGS: None. IMPRESSION: No active disease.
[2017-11-15] MEDS ORDERED: Propofol 10 mg/ml Inj (20 ML) ONE (13:44)
[2017-11-15] MEDS ORDERED: Phenylephrine 10 mg/ml Inj ONE (14:50)
--- NOTE | 2017-11-15 15:08 | PCM.SURG1 ---
Surgeon's Initial Post Op Note - Surgeon's Notes Surgeon: Dr. Pierre Horticultural Agent: Dr. Khan PGY-I, Marquita Watson OMS-III Type of Anesthesia: General Endo Pre-Operative Diagnosis: Necrotic Left Foot Operative Findings: See OP report Post-Operative Diagnosis: Necrotic Left Foot Operation Performed: Below the knee amputation of the left leg Specimen/Specimens Removed: Left lower extremity Estimated Blood Loss: EBL {In ML}: 350 Blood Products Given: N/A Drains Used: No Drains Post-Op Condition: Good Date of Surgery/Procedure: 11/15/17 Time of Surgery/Procedure: 15:08
[2017-11-15] MEDS: HYDROmorphone 0.5 mg/0.5 ml ISec IVP PRN ×3 (15:39→16:11)
[2017-11-15] MEDS ORDERED: Lactated Ringer's 1,000 ML IV ONE (16:20)
[2017-11-15] MEDS: Oxycodone/Acetaminophen 5/325 mg Tab PO PRN (18:43)
--- NOTE | 2017-11-15 21:29 | OP ---
PROCEDURE DATE: 11/15/2017 PREOPERATIVE DIAGNOSIS: Gangrene of left foot. POSTOPERATIVE DIAGNOSIS: Gangrene of left foot. PROCEDURE PERFORMED: Left [id number] amputation. SURGEON: Juma Pierre Jr., MD DYE LINE OPERATOR: Dr. Khan. ANESTHESIA ADMINISTERED BY: Dr. Joseph and Dr. Castle. ESTIMATED BLOOD LOSS: 300 mL to 350 mL. INDICATIONS: The patient is a 72-year-old woman with gangrene of the left foot reconstructable to the posterior tibial artery with vessels in the foot. OPERATIVE FINDINGS: There was adequate bleeding from the cut muscular surfaces. Rest of the intraoperative findings were unremarkable. DESCRIPTION OF PROCEDURE: The patient was given general anesthesia and intravenous antibiotics. A standard left below-knee amputation of the posterior flap was carried out. After obtaining hemostasis, we advanced the flap and closed it on to the fascia. The bone was cut, so that there was no angulation as well. The skin was then closed with skin clips and nylon sutures and noncompressive dressing applied. The operation carried out is left below-knee amputation. Juma Pierre Jr., MD
--- NOTE | 2017-11-15 23:40 | CP.PCM.PN ---
Subjective - Date & Time of Evaluation Date of Evaluation: 11/15/17 Time of Evaluation: 18:20 - Subjective Subjective: Patient seen and evaluated S/P Lt. BKA No cardiac events noted Objective - Vital Signs/Intake and Output Vital Signs (last 24 hours): Temp Pulse Resp BP Pulse Ox 97.4 F L 72 18 158/79 H 95 11/15/17 17:00 11/15/17 18:30 11/15/17 18:30 11/15/17 18:30 11/15/17 18:30 Intake and Output: 11/15/17 11/16/17 18:59 06:59 Intake Total 950 400 Balance 950 400 - Medications Medications: Current Medications Acetaminophen (Tylenol 325mg Tab) 650 mg PO Q6 PRN PRN Reason: Pain,MILD (1-3) Amlodipine Besylate (Norvasc) 10 mg PO DAILY [facility] Last Admin: 11/15/17 10:28 Dose: 10 mg Aspirin (Aspirin) 325 mg PO DAILY [facility] Last Admin: 11/15/17 10:39 Dose: Not Given Docusate Sodium (Colace) 100 mg PO DAILY [facility] Last Admin: 11/15/17 10:39 Dose: Not Given Famotidine (Pepcid) 20 mg PO BID [facility] Last Admin: 11/15/17 18:44 Dose: 20 mg Heparin Sodium (Porcine) (Heparin) 5,000 units SC Q8 [facility] Last Admin: 11/15/17 16:28 Dose: Not Given Hydromorphone HCl (Dilaudid) 0.5 mg IVP Q3H PRN PRN Reason: Pain, severe (8-10) Hydroxyurea (Hydrea) 500 mg PO BID [facility] Last Admin: 11/15/17 18:46 Dose: Not Given Ceftriaxone Sodium 1 gm/ (Sodium Chloride) 100 mls @ 100 mls/hr IVPB DAILY [facility] Last Admin: 11/15/17 10:35 Dose: 100 mls/hr Lidocaine (Lidoderm) 1 ea TD DAILY [facility] Last Admin: 11/15/17 10:34 Dose: 1 ea Lidocaine/Prilocaine (Emla) 1 gm TOP DAILY [facility] Last Admin: 11/15/17 10:39 Dose: Not Given Losartan Potassium (Cozaar) 100 mg PO DAILY [facility] Last Admin: 11/15/17 10:28 Dose: 100 mg Ondansetron HCl (Zofran Inj) 4 mg IVP Q6H PRN PRN Reason: Nausea/Vomiting Oxycodone/Acetaminophen (Percocet 5/325 Mg Tab) 1 tab PO Q4H PRN PRN Reason: Pain, moderate (4-7) Stop: 11/18/17 15:15 Last Admin: 11/15/17 18:43 Dose: 1 tab - Labs Labs: 11/15/17 07:11 11/15/17 07:11 PT 13.1 SECONDS (9.7-12.2) H 11/03/17 17:21 INR 1.1 11/03/17 17:21 APTT 88 SECONDS (21-34) H D 11/14/17 21:17
[2017-11-16] MEDS: HYDROmorphone 0.5 mg/0.5 ml ISec IVP PRN ×2 (00:14→07:04)
[2017-11-16] MEDS: Oxycodone/Acetaminophen 5/325 mg Tab PO PRN ×4 (03:09→19:07)
[2017-11-16 08:40] LABS: BASO # 0.1 K/uL (0.0-0.2); BASO % 0.5 % (0.0-2.0); EOS # 0.1 K/uL (0.0-0.7); EOS % 0.8 % (0.0-4.0); LYMPH % 8.2 % (20.0-40.0); MEAN CELL VOLUME 96.4 fL (81.0-99.0); MEAN CORPUSCULAR HEMOGLOBIN 32.5 pg (27.0-31.0); MEAN CORPUSCULAR HGB CONC 33.7 g/dL (33.0-37.0); MEAN PLATELET VOLUME 9.1 fL (7.2-11.7); MONO # 1.1 K/uL (0.0-0.8); MONO % 9.9 % (0.0-10.0); NEUT # 9.4 K/uL (1.8-7.0); NEUT % 80.6 % (50.0-75.0); NRBC % 0.1 % (0.0-2.0); PLATELET COUNT 535 K/uL (130-400); RBC 4.93 Mil/uL (3.80-5.20); RED CELL DISTRIBUTION WIDTH 15.7 % (11.5-14.5); WHITE BLOOD COUNT 11.7 K/uL (4.8-10.8)
[2017-11-16] MEDS ORDERED: Oxycodone/Acetaminophen 5/325 mg Tab PO PRN (08:51)
[2017-11-16 08:52] LABS: ALB/GLOB RATIO 1.1 (1.0-2.1); ALBUMIN 3.2 g/dL (3.5-5.0); ALT/SGPT 24 U/L (9-52); AST/SGOT 28 U/L (14-36); BLOOD UREA NITROGEN 22 mg/dL (7-17); CALCIUM 9.4 mg/dl (8.6-10.4); GFR AFRICAN-AMERICAN > 60; GFR NON-AFRICAN AMERICAN > 60; MAGNESIUM 1.9 mg/dL (1.6-2.3)
--- NOTE | 2017-11-16 08:55 | CP.PCM.PN ---
Subjective - Date & Time of Evaluation Date of Evaluation: 11/16/17 Time of Evaluation: 06:40 - Subjective Subjective: Vascular surgery progress note for Dr. Abdifatah Khan, PGY-1 Pt S & E at bedside. Pt resting comfortably in bed. Pt awakened, reports improved pain of LLE, only needed pain medications 2x overnight. Tolerating diet. No other problems overnight. Objective - Vital Signs/Intake and Output Vital Signs (last 24 hours): Temp Pulse Resp BP Pulse Ox 97.9 F 81 20 147/73 95 11/16/17 01:09 11/16/17 01:09 11/16/17 01:09 11/16/17 01:09 11/16/17 01:09 Intake and Output: 11/16/17 11/16/17 06:59 18:59 Intake Total 400 Balance 400 - Medications Medications: Current Medications Acetaminophen (Tylenol 325mg Tab) 650 mg PO Q6 PRN PRN Reason: Pain,MILD (1-3) Amlodipine Besylate (Norvasc) 10 mg PO DAILY [facility] Last Admin: 11/15/17 10:28 Dose: 10 mg Aspirin (Aspirin) 325 mg PO DAILY [facility] Last Admin: 11/15/17 10:39 Dose: Not Given Docusate Sodium (Colace) 100 mg PO DAILY [facility] Last Admin: 11/15/17 10:39 Dose: Not Given Famotidine (Pepcid) 20 mg PO BID [facility] Last Admin: 11/15/17 18:44 Dose: 20 mg Heparin Sodium (Porcine) (Heparin) 5,000 units SC Q8 [facility] Last Admin: 11/16/17 00:15 Dose: 5,000 units Hydroxyurea (Hydrea) 500 mg PO BID [facility] Last Admin: 11/15/17 18:46 Dose: Not Given Ceftriaxone Sodium 1 gm/ (Sodium Chloride) 100 mls @ 100 mls/hr IVPB DAILY [facility] Last Admin: 11/15/17 10:35 Dose: 100 mls/hr Lidocaine (Lidoderm) 1 ea TD DAILY [facility] Last Admin: 11/15/17 10:34 Dose: 1 ea Lidocaine/Prilocaine (Emla) 1 gm TOP DAILY [facility] Last Admin: 11/15/17 10:39 Dose: Not Given Losartan Potassium (Cozaar) 100 mg PO DAILY [facility] Last Admin: 11/15/17 10:28 Dose: 100 mg Ondansetron HCl (Zofran Inj) 4 mg IVP Q6H PRN PRN Reason: Nausea/Vomiting Oxycodone/Acetaminophen (Percocet 5/325 Mg Tab) 1 tab PO Q4H PRN PRN Reason: Pain, moderate (4-7) Stop: 11/18/17 15:15 Last Admin: 11/16/17 03:09 Dose: 1 tab Oxycodone/Acetaminophen (Percocet 5/325 Mg Tab) 2 tab PO Q4H PRN PRN Reason: Pain, severe (8-10) Stop: 11/19/17 08:52 - Labs Labs: 11/16/17 08:21 11/16/17 08:21 PT 13.1 SECONDS (9.7-12.2) H 11/03/17 17:21 INR 1.1 11/03/17 17:21 APTT 88 SECONDS (21-34) H D 11/14/17 21:17 - Constitutional Appears: Non-toxic, No Acute Distress - Head Exam Head Exam: ATRAUMATIC, NORMAL INSPECTION, NORMOCEPHALIC - Eye Exam Eye Exam: EOMI, Normal appearance - ENT Exam ENT Exam: Mucous Membranes Moist, Normal Exam - Neck Exam Neck Exam: Full ROM, Normal Inspection - Respiratory Exam Respiratory Exam: NORMAL BREATHING PATTERN - Cardiovascular Exam Cardiovascular Exam: REGULAR RHYTHM, +S1, +S2 - Extremities Exam Additional comments: knee immobilizer in place over LLE, non tender over stump, no strike through noted. Palpable femoral pulse of left lower extremity. - Neurological Exam Neurological Exam: Alert, Awake, Oriented x3 - Psychiatric Exam Psychiatric exam: Normal Affect, Normal Mood - Skin Skin Exam: Dry, Intact, Normal Color, Warm Assessment and Plan - Assessment and Plan (Free Text) Assessment: 72F POD#1 s/p L BKA Plan: Cont therapeutic Heparin SC for thrombosis OOBTC PT/OT Keep knee immobilizer in place Monitor dressing for bleeding PO pain meds Further mgmt as per primary team Will DW attending Erin, PGY-1
[2017-11-16 09:26] LABS: BANDS 1 % (0-2); EOSINOPHIL 1 % (0-4); LYMPHOCYTE 10 % (20-40); MONOCYTE 7 % (0-10); NEUTROPHIL 81 % (50-75); PLATELET ESTIMATE INCREASED (NORMAL); TOTAL CELLS COUNTED 100
--- NOTE | 2017-11-16 12:06 | CP.PCM.PN ---
Subjective - Date & Time of Evaluation Date of Evaluation: 11/16/17 Time of Evaluation: 12:04 - Subjective Subjective: Podiatry Progress Note - Dr. Marcial 72 year old female seen at bedside 1 day s/p left below knee amputation. Pt resting comfortably in bed. Pt in no distress, reports residual pain to the left leg. She states the pain is improving pain of LLE, only needed pain medications 2x overnight. No new pedal complaints to remaining right lower extremity. Pt denies any acute overnight events. Objective - Vital Signs/Intake and Output Vital Signs (last 24 hours): Temp Pulse Resp BP Pulse Ox 97.7 F 77 20 157/82 H 95 11/16/17 07:20 11/16/17 07:20 11/16/17 07:20 11/16/17 07:20 11/16/17 07:20 Intake and Output: 11/16/17 11/16/17 06:59 18:59 Intake Total 400 Balance 400 - Medications Medications: Current Medications Acetaminophen (Tylenol 325mg Tab) 650 mg PO Q6 PRN PRN Reason: Pain,MILD (1-3) Amlodipine Besylate (Norvasc) 10 mg PO DAILY [facility] Last Admin: 11/16/17 09:50 Dose: 10 mg Aspirin (Aspirin) 325 mg PO DAILY [facility] Last Admin: 11/16/17 09:51 Dose: 325 mg Docusate Sodium (Colace) 100 mg PO DAILY [facility] Last Admin: 11/16/17 09:50 Dose: 100 mg Famotidine (Pepcid) 20 mg PO BID [facility] Last Admin: 11/16/17 09:51 Dose: 20 mg Heparin Sodium (Porcine) (Heparin) 5,000 units SC Q8 [facility] Last Admin: 11/16/17 00:15 Dose: 5,000 units Hydroxyurea (Hydrea) 500 mg PO BID [facility] Last Admin: 11/16/17 09:49 Dose: 500 mg Losartan Potassium (Cozaar) 100 mg PO DAILY [facility] Last Admin: 11/16/17 09:48 Dose: 100 mg Ondansetron HCl (Zofran Inj) 4 mg IVP Q6H PRN PRN Reason: Nausea/Vomiting Oxycodone/Acetaminophen (Percocet 5/325 Mg Tab) 1 tab PO Q4H PRN PRN Reason: Pain, moderate (4-7) Stop: 11/18/17 15:15 Last Admin: 11/16/17 09:45 Dose: 1 tab Oxycodone/Acetaminophen (Percocet 5/325 Mg Tab) 2 tab PO Q4H PRN PRN Reason: Pain, severe (8-10) Stop: 11/19/17 08:52 - Labs Labs: 11/16/17 08:21 11/16/17 08:21 PT 13.1 SECONDS (9.7-12.2) H 11/03/17 17:21 INR 1.1 11/03/17 17:21 APTT 88 SECONDS (21-34) H D 11/14/17 21:17 - Constitutional Appears: Well, Non-toxic, No Acute Distress - Extremities Exam Additional comments: Lower extremity focused. Left: Knee immobilizer in place over thight and knee, non-tender over stump, no strike through noted Right: DERM: Skin is thin though supple. No open wounds, lesion, not macerations noted. Ails are normotrophic and at hygienic length. No hyper-pigmentations noted. Vasc: DP and PT pulses weakly palpable, graded 1/4 bilaterally> CFT < 3 seconds to the digits. MUSK: No tenderness to palpation, no gross deformities. Neuro: Gross protective sensation diminished - Neurological Exam Neurological Exam: Alert, Awake, Oriented x3 - Psychiatric Exam Psychiatric exam: Normal Affect, Normal Mood Assessment and Plan - Assessment and Plan (Free Text) Assessment: 72 year old female POD#1 s/p L below knee amputation (BKA) secondary to PAD & forefoot wet gangrene Plan: Pt seen and evaluated at bedside Discussed plan with attending, Dr. Marcial Chart, labs, and vitals reviewed. Pt has completed effected area amputation. No further indication for podiatric care. Pt is stable form podiatric standpoint. Podiatry signing off. Pt to resume routine outpatient podiatric care with Dr. Emmanuel.
--- NOTE | 2017-11-16 14:35 | CP.PCM.PN ---
Subjective - Date & Time of Evaluation Date of Evaluation: 11/16/17 Time of Evaluation: 07:30 - Subjective Subjective: PGY1 Medicine Note for Dr. Gallegos Patient seen and examined at bedside this morning. Patient is post op day 1 from a left BKA. She states she is in some pain but it has been well controlled. She states she was able to work with PT and felt much better after it. She is nervous about life without her leg but appears to be in good spirits. Denies fevers, chills, nausea, vomiting, diarrhea, chest pain, abdominal pain, shortness of breath or headaches. Objective - Vital Signs/Intake and Output Vital Signs (last 24 hours): Temp Pulse Resp BP Pulse Ox 97.7 F 77 20 157/82 H 95 11/16/17 07:20 11/16/17 07:20 11/16/17 07:20 11/16/17 07:20 11/16/17 07:20 Intake and Output: 11/16/17 11/16/17 06:59 18:59 Intake Total 400 Balance 400 - Medications Medications: Current Medications Acetaminophen (Tylenol 325mg Tab) 650 mg PO Q6 PRN PRN Reason: Pain,MILD (1-3) Amlodipine Besylate (Norvasc) 10 mg PO DAILY [facility] Last Admin: 11/16/17 09:50 Dose: 10 mg Aspirin (Aspirin) 325 mg PO DAILY [facility] Last Admin: 11/16/17 09:51 Dose: 325 mg Docusate Sodium (Colace) 100 mg PO DAILY [facility] Last Admin: 11/16/17 09:50 Dose: 100 mg Famotidine (Pepcid) 20 mg PO BID [facility] Last Admin: 11/16/17 09:51 Dose: 20 mg Heparin Sodium (Porcine) (Heparin) 5,000 units SC Q8 [facility] Last Admin: 11/16/17 14:11 Dose: 5,000 units Hydroxyurea (Hydrea) 500 mg PO BID [facility] Last Admin: 11/16/17 09:49 Dose: 500 mg Losartan Potassium (Cozaar) 100 mg PO DAILY [facility] Last Admin: 11/16/17 09:48 Dose: 100 mg Ondansetron HCl (Zofran Inj) 4 mg IVP Q6H PRN PRN Reason: Nausea/Vomiting Oxycodone/Acetaminophen (Percocet 5/325 Mg Tab) 1 tab PO Q4H PRN PRN Reason: Pain, moderate (4-7) Stop: 11/18/17 15:15 Last Admin: 11/16/17 13:47 Dose: 1 tab Oxycodone/Acetaminophen (Percocet 5/325 Mg Tab) 2 tab PO Q4H PRN PRN Reason: Pain, severe (8-10) Stop: 11/19/17 08:52 - Labs Labs: 11/16/17 08:21 11/16/17 08:21 PT 13.1 SECONDS (9.7-12.2) H 11/03/17 17:21 INR 1.1 11/03/17 17:21 APTT 88 SECONDS (21-34) H D 11/14/17 21:17 - Constitutional Appears: Non-toxic, No Acute Distress - Head Exam Head Exam: ATRAUMATIC, NORMOCEPHALIC - Eye Exam Eye Exam: EOMI, Normal appearance - ENT Exam ENT Exam: Mucous Membranes Moist - Respiratory Exam Respiratory Exam: Clear to Ausculation Bilateral, NORMAL BREATHING PATTERN. absent: Accessory Muscle Use, Rales, Wheezes, Respiratory Distress - Cardiovascular Exam Cardiovascular Exam: REGULAR RHYTHM, +S1 - GI/Abdominal Exam GI & Abdominal Exam: Soft, Normal Bowel Sounds. absent: Distended, Firm, Guarding, Rigid, Tenderness - Extremities Exam Extremities Exam: absent: Calf Tenderness, Pedal Edema Additional comments: s/p L BKA - Neurological Exam Neurological Exam: Alert, Awake, Oriented x3 - Psychiatric Exam Psychiatric exam: Normal Affect, Normal Mood - Skin Skin Exam: Dry, Warm Assessment and Plan - Assessment and Plan (Free Text) Plan: 1.Gangrene of the left foot * Dr. Pierre consulted - f/u surgery recs * s/p Left BKA - POD#1 * Lower extremity duplex showed occlusion of the left popliteal and anterior tibial * Dilaudid prn for pain * Angio 11/03/17: 1. Moderate atherosclerotic disease of the right leg with 50-60 % stenosis of the distal SFA. The popliteal artery occludes behind the knee. Intermittent reconstitution of the peroneal artery and posterior tibial artery with the posterior tibial artery crossing the ankle 2. Multifocal short segment stenoses of the left SFA with occlusion of the distal SFA. Intermittent reconstitution of the posterior tibial artery mid calf to the level of the ankle. Small arterial collaterals noted on the dorsum of the foot. 3. Mild splenomegaly with splenic infarct. 4. Scattered colonic diverticula. 5. Pleural-based nodular density in the right lower lobe. For low-risk or high- risk patients consider a follow-up chest CT at 3 months. If unchanged consider an additional follow-up CT at 18-24 months. Alternatively (or additionally) PET /CT or tissue sampling could be performed. 6. Hepatomegaly * Podiatry, Dr. Marcial, consulted; help appreciated 2.Hypertensive urgency * BP upon admission 225/108. * Patient normal range of SBP is in the 160's. Patient is asymptomatic upon examination. * Clonindine .2mg given in the Emergency room. * Amlodipine 10mg PO daily and Losartan 25mg PO daily * Heart healthy diet (2g Na restriction) * Cardiology consulted, Dr. Gan; help appreciated * Echo: moderate-severe concentric LVH; mild LV diastolic dysfunction; mildly dilated LA; trace to mild MR; LVEF 66% * Patient was scheduled for stress test on 11/08; however, patient refused. * Stress test (11/10/17): normal findings * Per Dr. Gan, There is no high cardiac risk feature noted. Likely Cardiac risk is moderate or Intermediate (3-5%). If benefit outweighs the risk please proceed with the surgery. 3.Thrombocytosis * 850 upon admission; trending down 535 today * Sealer Sander consulted, Dr. Aguilar; help appreciated * Dr. Aguilar started patient on Hydera 500mg PO BID on 11/06/17. 4. Palliative Care * Palliative Care consulted for POLST * Patient is unable to make end of life decisions at this time due to anxiety about surgery. * Code status not discussed * Will continue to follow throughout hospital course. Prophylaxis: * Pepcid 20mg BID * NO SCDs * Heparin Drip - will await surgery approval before restarting. * Heart Healthy diet Dispo: Will plan for Rehab at [facility] [place] upon discharge from hospital. Case discussed with Dr. Gallegos. Carlos Shanks PGY1
--- NOTE | 2017-11-16 20:50 | CP.PCM.PN ---
Subjective - Date & Time of Evaluation Date of Evaluation: 11/16/17 Time of Evaluation: 20:47 - Subjective Subjective: The patient is still experiencing some phantom pain, but otherwise stable. Denies HAs, nausea, vomiting. Says she is ready for rehab Objective - Vital Signs/Intake and Output Vital Signs (last 24 hours): Temp Pulse Resp BP Pulse Ox 97.8 F 67 20 128/64 96 11/16/17 17:12 11/16/17 17:12 11/16/17 17:12 11/16/17 17:12 11/16/17 17:12 Intake and Output: 11/16/17 11/17/17 18:59 06:59 Intake Total 340 Balance 340 - Medications Medications: Current Medications Acetaminophen (Tylenol 325mg Tab) 650 mg PO Q6 PRN PRN Reason: Pain,MILD (1-3) Amlodipine Besylate (Norvasc) 10 mg PO DAILY [facility] Last Admin: 11/16/17 09:50 Dose: 10 mg Aspirin (Aspirin) 325 mg PO DAILY [facility] Last Admin: 11/16/17 09:51 Dose: 325 mg Docusate Sodium (Colace) 100 mg PO DAILY [facility] Last Admin: 11/16/17 09:50 Dose: 100 mg Famotidine (Pepcid) 20 mg PO BID [facility] Last Admin: 11/16/17 18:55 Dose: 20 mg Heparin Sodium (Porcine) (Heparin) 5,000 units SC Q8 [facility] Last Admin: 11/16/17 14:11 Dose: 5,000 units Hydroxyurea (Hydrea) 500 mg PO BID [facility] Last Admin: 11/16/17 18:50 Dose: 500 mg Losartan Potassium (Cozaar) 100 mg PO DAILY [facility] Last Admin: 11/16/17 09:48 Dose: 100 mg Ondansetron HCl (Zofran Inj) 4 mg IVP Q6H PRN PRN Reason: Nausea/Vomiting Oxycodone/Acetaminophen (Percocet 5/325 Mg Tab) 1 tab PO Q4H PRN PRN Reason: Pain, moderate (4-7) Stop: 11/18/17 15:15 Last Admin: 11/16/17 19:07 Dose: 1 tab Oxycodone/Acetaminophen (Percocet 5/325 Mg Tab) 2 tab PO Q4H PRN PRN Reason: Pain, severe (8-10) Stop: 11/19/17 08:52 - Labs Labs: 11/16/17 08:21 11/16/17 08:21 PT 13.1 SECONDS (9.7-12.2) H 11/03/17 17:21 INR 1.1 11/03/17 17:21 APTT 88 SECONDS (21-34) H D 11/14/17 21:17 Assessment and Plan (1) Polycythemia rubra vera Assessment & Plan: 72 yo woman with P.Vera, stable counts on Po hydrea. Will decrease dosage back to one tablet daily, the patient was well maintained on once daily dosing Status: Acute
--- NOTE | 2017-11-16 21:57 | CP.PCM.PN ---
Subjective - Date & Time of Evaluation Date of Evaluation: 11/16/17 Time of Evaluation: 07:20 - Subjective Subjective: Patient seen and evaluated Denies chest pain and dyspnea No cardiac events noted Objective - Vital Signs/Intake and Output Vital Signs (last 24 hours): Temp Pulse Resp BP Pulse Ox 97.8 F 67 20 128/64 96 11/16/17 17:12 11/16/17 17:12 11/16/17 17:12 11/16/17 17:12 11/16/17 17:12 Intake and Output: 11/16/17 11/17/17 18:59 06:59 Intake Total 340 Balance 340 - Medications Medications: Current Medications Acetaminophen (Tylenol 325mg Tab) 650 mg PO Q6 PRN PRN Reason: Pain,MILD (1-3) Amlodipine Besylate (Norvasc) 10 mg PO DAILY [facility] Last Admin: 11/16/17 09:50 Dose: 10 mg Aspirin (Aspirin) 325 mg PO DAILY [facility] Last Admin: 11/16/17 09:51 Dose: 325 mg Docusate Sodium (Colace) 100 mg PO DAILY [facility] Last Admin: 11/16/17 09:50 Dose: 100 mg Famotidine (Pepcid) 20 mg PO BID [facility] Last Admin: 11/16/17 18:55 Dose: 20 mg Heparin Sodium (Porcine) (Heparin) 5,000 units SC Q8 [facility] Last Admin: 11/16/17 14:11 Dose: 5,000 units Hydroxyurea (Hydrea) 500 mg PO DAILY [facility] Losartan Potassium (Cozaar) 100 mg PO DAILY [facility] Last Admin: 11/16/17 09:48 Dose: 100 mg Ondansetron HCl (Zofran Inj) 4 mg IVP Q6H PRN PRN Reason: Nausea/Vomiting Oxycodone/Acetaminophen (Percocet 5/325 Mg Tab) 1 tab PO Q4H PRN PRN Reason: Pain, moderate (4-7) Stop: 11/18/17 15:15 Last Admin: 11/16/17 19:07 Dose: 1 tab Oxycodone/Acetaminophen (Percocet 5/325 Mg Tab) 2 tab PO Q4H PRN PRN Reason: Pain, severe (8-10) Stop: 11/19/17 08:52 - Labs Labs: 11/16/17 08:21 11/16/17 08:21 PT 13.1 SECONDS (9.7-12.2) H 11/03/17 17:21 INR 1.1 11/03/17 17:21 APTT 88 SECONDS (21-34) H D 11/14/17 21:17
[2017-11-17] MEDS: Oxycodone/Acetaminophen 5/325 mg Tab PO PRN ×3 (06:46→21:37)
--- NOTE | 2017-11-17 09:12 | CP.PCM.PN ---
Subjective - Date & Time of Evaluation Date of Evaluation: 11/17/17 Time of Evaluation: 07:10 - Subjective Subjective: Vascular surgery progress note for Dr. Abdifatah Khan, PGY-1 Pt S & E at bedside. Pt c/o left lower extremity pain, phantom pain in foot. Left leg dressing feels like it's wet. Reports she worked with PT yesterday. Objective - Vital Signs/Intake and Output Vital Signs (last 24 hours): Temp Pulse Resp BP Pulse Ox 97.5 F L 74 20 160/73 H 92 L 11/17/17 08:18 11/17/17 08:18 11/17/17 08:18 11/17/17 08:18 11/17/17 08:18 - Medications Medications: Current Medications Acetaminophen (Tylenol 325mg Tab) 650 mg PO Q6 PRN PRN Reason: Pain,MILD (1-3) Amlodipine Besylate (Norvasc) 10 mg PO DAILY [facility] Last Admin: 11/16/17 09:50 Dose: 10 mg Aspirin (Aspirin) 325 mg PO DAILY [facility] Last Admin: 11/16/17 09:51 Dose: 325 mg Docusate Sodium (Colace) 100 mg PO DAILY [facility] Last Admin: 11/16/17 09:50 Dose: 100 mg Famotidine (Pepcid) 20 mg PO BID [facility] Last Admin: 11/16/17 18:55 Dose: 20 mg Gabapentin (Neurontin) 100 mg PO TID [facility] Heparin Sodium (Porcine) (Heparin) 5,000 units SC Q8 [facility] Last Admin: 11/17/17 06:33 Dose: 5,000 units Hydroxyurea (Hydrea) 500 mg PO DAILY [facility] Losartan Potassium (Cozaar) 100 mg PO DAILY [facility] Last Admin: 11/16/17 09:48 Dose: 100 mg Ondansetron HCl (Zofran Inj) 4 mg IVP Q6H PRN PRN Reason: Nausea/Vomiting Oxycodone/Acetaminophen (Percocet 5/325 Mg Tab) 1 tab PO Q4H PRN PRN Reason: Pain, moderate (4-7) Stop: 11/18/17 15:15 Last Admin: 11/17/17 06:46 Dose: 1 tab Oxycodone/Acetaminophen (Percocet 5/325 Mg Tab) 2 tab PO Q4H PRN PRN Reason: Pain, severe (8-10) Stop: 11/19/17 08:52 - Labs Labs: 11/16/17 08:21 11/16/17 08:21 PT 13.1 SECONDS (9.7-12.2) H 11/03/17 17:21 INR 1.1 11/03/17 17:21 APTT 88 SECONDS (21-34) H D 11/14/17 21:17 - Constitutional Appears: Non-toxic, No Acute Distress - Head Exam Head Exam: ATRAUMATIC, NORMAL INSPECTION, NORMOCEPHALIC - Eye Exam Eye Exam: EOMI, Normal appearance - ENT Exam ENT Exam: Mucous Membranes Moist, Normal Exam - Respiratory Exam Respiratory Exam: NORMAL BREATHING PATTERN - Cardiovascular Exam Cardiovascular Exam: REGULAR RHYTHM, +S1, +S2 - GI/Abdominal Exam GI & Abdominal Exam: Soft. absent: Tenderness - Extremities Exam Additional comments: Left leg dressing with sanguinous strike through Left knee immobilizer in place - Neurological Exam Neurological Exam: Alert, Awake, CN II-XII Intact, Oriented x3 - Psychiatric Exam Psychiatric exam: Normal Affect, Normal Mood - Skin Skin Exam: Dry, Intact, Warm Assessment and Plan - Assessment and Plan (Free Text) Assessment: 72F POD#2 s/p L BKA Plan: Cont therapeutic Heparin SC for thrombosis OOBTC PT/OT Keep knee immobilizer in place Monitor dressing for bleeding PO pain meds Started Gabapentin for neuropathy Further mgmt as per primary team Will JEMIMA Khan, PGY-1
[2017-11-17 11:16] LABS: BASO # 0.1 K/uL (0.0-0.2); BASO % 0.9 % (0.0-2.0); EOS # 0.2 K/uL (0.0-0.7); EOS % 1.4 % (0.0-4.0); HEMOGLOBIN 16.8 g/dL (11.0-16.0); LYMPH # 1.3 K/uL (1.0-4.3); LYMPH % 10.3 % (20.0-40.0); MEAN CELL VOLUME 96.4 fL (81.0-99.0); MEAN CORPUSCULAR HGB CONC 34.3 g/dL (33.0-37.0); MEAN PLATELET VOLUME 9.4 fL (7.2-11.7); MONO # 0.9 K/uL (0.0-0.8); MONO % 6.9 % (0.0-10.0); NEUT # 10.4 K/uL (1.8-7.0); NEUT % 80.5 % (50.0-75.0); NRBC % 0.1 % (0.0-2.0); RBC 5.08 Mil/uL (3.80-5.20); RED CELL DISTRIBUTION WIDTH 15.5 % (11.5-14.5); WHITE BLOOD COUNT 12.9 K/uL (4.8-10.8)
[2017-11-17 14:11] LABS: ALB/GLOB RATIO 1.1 (1.0-2.1); ALBUMIN 3.4 g/dL (3.5-5.0); ALT/SGPT 18 U/L (9-52); AST/SGOT 23 U/L (14-36); BLOOD UREA NITROGEN 30 mg/dL (7-17); CALCIUM 9.1 mg/dl (8.6-10.4); GFR AFRICAN-AMERICAN > 60; GFR NON-AFRICAN AMERICAN > 60
--- NOTE | 2017-11-17 21:52 | CP.PCM.PN ---
Subjective - Date & Time of Evaluation Date of Evaluation: 11/17/17 Time of Evaluation: 10:20 - Subjective Subjective: PGY1 Medicine Note for Dr. Gallegos Patient seen and examined at bedside this morning. Patient is s/p left BKA. Patient states that her pain is much more controlled and she is feeling much better today compared to yesterday. She is coming to accept that she is no longer going to have her left knee. She denies fevers, chills, nausea, vomiting , diarrhea, chest pain, abdominal pain, shortness of breath or headaches. Objective - Vital Signs/Intake and Output Vital Signs (last 24 hours): Temp Pulse Resp BP Pulse Ox 98.5 F 77 18 133/70 95 11/17/17 15:25 11/17/17 18:00 11/17/17 15:25 11/17/17 15:25 11/17/17 15:25 Intake and Output: 11/17/17 11/18/17 18:59 06:59 Intake Total 400 Balance 400 - Medications Medications: Current Medications Acetaminophen (Tylenol 325mg Tab) 650 mg PO Q6 PRN PRN Reason: Pain,MILD (1-3) Amlodipine Besylate (Norvasc) 10 mg PO DAILY [facility] Last Admin: 11/17/17 10:03 Dose: 10 mg Aspirin (Aspirin) 325 mg PO DAILY [facility] Last Admin: 11/17/17 10:03 Dose: 325 mg Docusate Sodium (Colace) 100 mg PO DAILY [facility] Last Admin: 11/17/17 10:03 Dose: 100 mg Famotidine (Pepcid) 20 mg PO BID [facility] Last Admin: 11/17/17 17:48 Dose: 20 mg Gabapentin (Neurontin) 100 mg PO TID [facility] Last Admin: 11/17/17 17:49 Dose: 100 mg Heparin Sodium (Porcine) (Heparin) 5,000 units SC Q8 [facility] Last Admin: 11/17/17 21:38 Dose: 5,000 units Hydroxyurea (Hydrea) 500 mg PO DAILY [facility] Last Admin: 11/17/17 10:05 Dose: 500 mg Losartan Potassium (Cozaar) 100 mg PO DAILY [facility] Last Admin: 11/17/17 10:04 Dose: 100 mg Ondansetron HCl (Zofran Inj) 4 mg IVP Q6H PRN PRN Reason: Nausea/Vomiting Oxycodone/Acetaminophen (Percocet 5/325 Mg Tab) 1 tab PO Q4H PRN PRN Reason: Pain, moderate (4-7) Stop: 11/18/17 15:15 Last Admin: 11/17/17 21:37 Dose: 1 tab Oxycodone/Acetaminophen (Percocet 5/325 Mg Tab) 2 tab PO Q4H PRN PRN Reason: Pain, severe (8-10) Stop: 11/19/17 08:52 - Labs Labs: 11/17/17 11:08 11/17/17 13:45 PT 13.1 SECONDS (9.7-12.2) H 11/03/17 17:21 INR 1.1 11/03/17 17:21 APTT 88 SECONDS (21-34) H D 11/14/17 21:17 - Constitutional Appears: Non-toxic, No Acute Distress - Head Exam Head Exam: ATRAUMATIC, NORMOCEPHALIC - Eye Exam Eye Exam: EOMI, Normal appearance Pupil Exam: PERRL - ENT Exam ENT Exam: Mucous Membranes Moist - Respiratory Exam Respiratory Exam: Clear to Ausculation Bilateral, NORMAL BREATHING PATTERN. absent: Accessory Muscle Use, Rales, Rhonchi, Wheezes, Respiratory Distress - Cardiovascular Exam Cardiovascular Exam: REGULAR RHYTHM, +S1 - GI/Abdominal Exam GI & Abdominal Exam: Soft, Normal Bowel Sounds. absent: Distended, Firm, Guarding, Rigid - Extremities Exam Additional comments: s/p L BKA - Neurological Exam Neurological Exam: Alert, Awake, Oriented x3 - Psychiatric Exam Psychiatric exam: Normal Affect, Normal Mood - Skin Skin Exam: Dry, Warm Assessment and Plan - Assessment and Plan (Free Text) Plan: 1.Gangrene of the left foot * Dr. Pierre consulted - f/u surgery recs * Spoke to surgical residents, cleared for discharge to rehab. * s/p Left BKA - POD#2 * Lower extremity duplex showed occlusion of the left popliteal and anterior tibial * Dilaudid prn for pain * Angio 11/03/17: 1. Moderate atherosclerotic disease of the right leg with 50-60 % stenosis of the distal SFA. The popliteal artery occludes behind the knee. Intermittent reconstitution of the peroneal artery and posterior tibial artery with the posterior tibial artery crossing the ankle 2. Multifocal short segment stenoses of the left SFA with occlusion of the distal SFA. Intermittent reconstitution of the posterior tibial artery mid calf to the level of the ankle. Small arterial collaterals noted on the dorsum of the foot. 3. Mild splenomegaly with splenic infarct. 4. Scattered colonic diverticula. 5. Pleural-based nodular density in the right lower lobe. For low-risk or high- risk patients consider a follow-up chest CT at 3 months. If unchanged consider an additional follow-up CT at 18-24 months. Alternatively (or additionally) PET /CT or tissue sampling could be performed. 6. Hepatomegaly * Podiatry, Dr. Marcial, consulted; help appreciated 2.Hypertensive urgency * BP upon admission 225/108. * Patient normal range of SBP is in the 160's. Patient is asymptomatic upon examination. * Clonindine .2mg given in the Emergency room. * Amlodipine 10mg PO daily and Losartan 25mg PO daily * Heart healthy diet (2g Na restriction) * Cardiology consulted, Dr. Gan; help appreciated * Echo: moderate-severe concentric LVH; mild LV diastolic dysfunction; mildly dilated LA; trace to mild MR; LVEF 66% * Patient was scheduled for stress test on 11/08; however, patient refused. * Stress test (11/10/17): normal findings * Per Dr. Gan, There is no high cardiac risk feature noted. Likely Cardiac risk is moderate or Intermediate (3-5%). If benefit outweighs the risk please proceed with the surgery. 3.Thrombocytosis * 850 upon admission; trending down 502 today * Web Content Specialist consulted, Dr. Aguilar; help appreciated * Dr. Aguilar started patient on Hydera 500mg PO BID on 11/06/17. 4. Palliative Care * Palliative Care consulted for POLST * Patient was unable to make end of life decisions at this time due to anxiety about surgery. * Code status was not discussed * Will continue to follow throughout hospital course. Prophylaxis: * Pepcid 20mg BID * NO SCDs * Heparin Drip - will await surgery approval before restarting. * Heart Healthy diet Dispo: Plan to discharge for Rehab to [facility] in AM. Request Dr. Hill for primary while at [facility]. Case discussed with Dr. Gallegos. Carlos Shanks PGY1
--- NOTE | 2017-11-17 23:23 | CARD ---
APPROVED REPORT EKG Measurement Heart [id number] <Conclusion> Normal sinus rhythm Left axis deviation T wave abnormality, consider anterior ischemia Abnormal ECG
[2017-11-18 01:50] VITALS: RESP 20
[2017-11-18 09:27] LABS: BASO # 0.1 K/uL (0.0-0.2); BASO % 0.9 % (0.0-2.0); EOS # 0.3 K/uL (0.0-0.7); EOS % 2.5 % (0.0-4.0); HEMOGLOBIN 16.5 g/dL (11.0-16.0); LYMPH # 1.5 K/uL (1.0-4.3); LYMPH % 11.7 % (20.0-40.0); MEAN CELL VOLUME 96.9 fL (81.0-99.0); MEAN CORPUSCULAR HEMOGLOBIN 32.6 pg (27.0-31.0); MEAN CORPUSCULAR HGB CONC 33.7 g/dL (33.0-37.0); MEAN PLATELET VOLUME 9.4 fL (7.2-11.7); MONO # 1.2 K/uL (0.0-0.8); MONO % 9.3 % (0.0-10.0); NEUT # 9.5 K/uL (1.8-7.0); NEUT % 75.6 % (50.0-75.0); NRBC % 0.1 % (0.0-2.0); RBC 5.06 Mil/uL (3.80-5.20); WHITE BLOOD COUNT 12.6 K/uL (4.8-10.8)
[2017-11-18 09:33] LABS: ALBUMIN 3.4 g/dL (3.5-5.0); ALT/SGPT 19 U/L (9-52); AST/SGOT 25 U/L (14-36); BLOOD UREA NITROGEN 24 mg/dL (7-17); CALCIUM 9.7 mg/dl (8.6-10.4); GFR AFRICAN-AMERICAN > 60; GFR NON-AFRICAN AMERICAN > 60; MAGNESIUM 2.1 mg/dL (1.6-2.3)
[2017-11-18] MEDS ORDERED: Magnesium Hydroxide Susp 30 ml UD PO ONE (12:46)
--- NOTE | 2017-11-18 15:47 | CP.PCM.PN ---
Subjective - Date & Time of Evaluation Date of Evaluation: 11/18/17 Time of Evaluation: 08:15 - Subjective Subjective: Vascular surgery progress note for Dr. Abdifatah Khan, PGY-1 Pt S & E at bedside. Pt resting comfortably in bed. Pt reports continued discomfort in LLE, some phantom pains. Is working with PT. Tolerating diet. Objective - Vital Signs/Intake and Output Vital Signs (last 24 hours): Temp Pulse Resp BP Pulse Ox 98.6 F 76 20 175/85 H 96 11/18/17 08:00 11/18/17 08:00 11/18/17 08:00 11/18/17 08:00 11/18/17 08:00 Intake and Output: 11/18/17 11/18/17 06:59 18:59 Intake Total 300 Balance 300 - Medications Medications: Current Medications Acetaminophen (Tylenol 325mg Tab) 650 mg PO Q6 PRN PRN Reason: Pain,MILD (1-3) Amlodipine Besylate (Norvasc) 10 mg PO DAILY [facility] Last Admin: 11/18/17 11:09 Dose: 10 mg Aspirin (Aspirin) 325 mg PO DAILY [facility] Last Admin: 11/18/17 11:07 Dose: 325 mg Docusate Sodium (Colace) 100 mg PO DAILY [facility] Last Admin: 11/18/17 11:07 Dose: 100 mg Famotidine (Pepcid) 20 mg PO BID [facility] Last Admin: 11/18/17 11:08 Dose: 20 mg Gabapentin (Neurontin) 100 mg PO TID [facility] Last Admin: 11/18/17 13:55 Dose: 100 mg Heparin Sodium (Porcine) (Heparin) 5,000 units SC Q8 [facility] Last Admin: 11/18/17 13:54 Dose: 5,000 units Hydroxyurea (Hydrea) 500 mg PO DAILY [facility] Last Admin: 11/18/17 11:08 Dose: 500 mg Losartan Potassium (Cozaar) 100 mg PO DAILY [facility] Last Admin: 11/18/17 11:07 Dose: 100 mg Ondansetron HCl (Zofran Inj) 4 mg IVP Q6H PRN PRN Reason: Nausea/Vomiting Oxycodone/Acetaminophen (Percocet 5/325 Mg Tab) 2 tab PO Q4H PRN PRN Reason: Pain, severe (8-10) Stop: 11/19/17 08:52 - Labs Labs: 11/18/17 09:09 11/18/17 09:09 PT 13.1 SECONDS (9.7-12.2) H 11/03/17 17:21 INR 1.1 11/03/17 17:21 APTT 88 SECONDS (21-34) H D 11/14/17 21:17 - Constitutional Appears: Non-toxic, No Acute Distress - Head Exam Head Exam: ATRAUMATIC, NORMAL INSPECTION, NORMOCEPHALIC - Eye Exam Eye Exam: EOMI, Normal appearance - ENT Exam ENT Exam: Mucous Membranes Moist, Normal Exam - Neck Exam Neck Exam: Full ROM, Normal Inspection - Respiratory Exam Respiratory Exam: NORMAL BREATHING PATTERN - Cardiovascular Exam Cardiovascular Exam: REGULAR RHYTHM - GI/Abdominal Exam GI & Abdominal Exam: Soft, Normal Bowel Sounds - Extremities Exam Additional comments: L BKA Femoral pulse palpable bilaterally - Neurological Exam Neurological Exam: Alert, Awake, CN II-XII Intact, Oriented x3 - Psychiatric Exam Psychiatric exam: Normal Affect, Normal Mood - Skin Skin Exam: Dry, Intact, Normal Color, Warm Assessment and Plan - Assessment and Plan (Free Text) Assessment: 72F POD#3 s/p L BKA Plan: Cont therapeutic DVT treatment Aggressive PT/OT Keep knee immobilizer in place, but attempt to flex knee Keep dressings in place until you see Dr. Pierre in the office in 1 week Cont Gabapentin Cont pain medication Ok to shower/bath if can keep left lower extremity dry, need assistance Mag Ox Ok to d/c to rehab from surgical standpoint Please place on bowel regimen upon discharge further mgmt as per primary team JEMIMA attending Erin, PGY-1
[2017-11-18] MEDS ORDERED: Pneumococcal 23-Valent Vaccine IM ONE (16:59)
[2017-11-18] MEDS ORDERED: Influenza Vaccine 60 mcg/0.5 mL SYR (4YR UP) IM ONE (16:59)
--- NOTE | 2017-11-18 18:43 | CP.PCM.DIS ---
Provider - Provider Date of Admission: 11/03/17 17:53 Attending physician: Raudel Gallegos Jr, MD Consults: Dr. Cholo Pro Time Spent in preparation of Discharge (in minutes): 35 Diagnosis - Discharge Diagnosis (1) Thrombocytosis Status: Acute (2) Gangrene of left foot Status: Acute (3) HTN (hypertension) Status: Acute (4) UTI (urinary tract infection) Status: Acute Hospital Course - Lab Results Lab Results: Micro Results 11/11/17 Unknown Urine Urine Culture - Final Escherichia Coli 11/03/17 17:15 Blood Blood Culture - Final NO GROWTH AFTER 5 DAYS 11/03/17 17:15 Blood Gram Stain - Final TEST NOT PERFORMED 11/03/17 18:00 Blood Blood Culture - Final NO GROWTH AFTER 5 DAYS 11/03/17 18:00 Blood Gram Stain - Final TEST NOT PERFORMED Most Recent Lab Values WBC 12.6 K/uL (4.8-10.8) H 11/18/17 09:09 RBC 5.06 Mil/uL (3.80-5.20) 11/18/17 09:09 Hgb 16.5 g/dL (11.0-16.0) H 11/18/17 09:09 Hct 49.0 % (34.0-47.0) H 11/18/17 09:09 MCV 96.9 fL (81.0-99.0) 11/18/17 09:09 MCH 32.6 pg (27.0-31.0) H 11/18/17 09:09 MCHC 33.7 g/dL (33.0-37.0) 11/18/17 09:09 RDW 16.0 % (11.5-14.5) H 11/18/17 09:09 Plt Count 535 K/uL (130-400) H 11/18/17 09:09 MPV 9.4 fL (7.2-11.7) 11/18/17 09:09 Neut % (Auto) 75.6 % (50.0-75.0) H 11/18/17 09:09 Lymph % (Auto) 11.7 % (20.0-40.0) L 11/18/17 09:09 Sac % (Auto) 9.3 % (0.0-10.0) 11/18/17 09:09 Eos % (Auto) 2.5 % (0.0-4.0) 11/18/17 09:09 Baso % (Auto) 0.9 % (0.0-2.0) 11/18/17 09:09 Neut # (Auto) 9.5 K/uL (1.8-7.0) H 11/18/17 09:09 Lymph # (Auto) 1.5 K/uL (1.0-4.3) 11/18/17 09:09 Sac # (Auto) 1.2 K/uL (0.0-0.8) H 11/18/17 09:09 Eos # (Auto) 0.3 K/uL (0.0-0.7) 11/18/17 09:09 Baso # (Auto) 0.1 K/uL (0.0-0.2) 11/18/17 09:09 Neutrophils % (Manual) 81 % (50-75) H 11/16/17 08:21 Band Neutrophils % 1 % (0-2) 11/16/17 08:21 Lymphocytes % (Manual) 10 % (20-40) L 11/16/17 08:21 Monocytes % (Manual) 7 % (0-10) 11/16/17 08:21 Eosinophils % (Manual) 1 % (0-4) 11/16/17 08:21 Basophils % (Manual) 1 % (0-2) 11/10/17 07:05 Differential Comment 11/09/17 06:23 Platelet Estimate Increased (NORMAL) H 11/16/17 08:21 Large Platelets Present 11/11/17 07:22 RBC Morphology Normal 11/04/17 11:45 PT 13.1 SECONDS (9.7-12.2) H 11/03/17 17:21 INR 1.1 11/03/17 17:21 APTT 88 SECONDS (21-34) H D 11/14/17 21:17 Sodium 136 mmol/L (132-148) 11/18/17 09:09 Potassium 3.9 mmol/L (3.6-5.2) 11/18/17 09:09 Chloride 100 mmol/L (98-107) 11/18/17 09:09 Carbon Dioxide 30 mmol/L (22-30) 11/18/17 09:09 Anion Gap 11 (10-20) 11/18/17 09:09 BUN 24 mg/dL (7-17) H 11/18/17 09:09 Creatinine 0.8 mg/dL (0.7-1.2) 11/18/17 09:09 Est GFR ( Amer) > 60 11/18/17 09:09 Est GFR (Non-Af Amer) > 60 11/18/17 09:09 POC Glucose (mg/dL) 141 mg/dL (65-110) H 11/13/17 11:44 Random Glucose 110 mg/dL (65-105) H 11/18/17 09:09 Hemoglobin A1c 5.2 % (4.2-6.5) 11/03/17 17:21 Calcium 9.7 mg/dl (8.6-10.4) 11/18/17 09:09 Phosphorus 3.6 mg/dL (2.5-4.5) 11/18/17 09:09 Magnesium 2.1 mg/dL (1.6-2.3) 11/18/17 09:09 Total Bilirubin 0.7 mg/dL (0.2-1.3) 11/18/17 09:09 AST 25 U/L (14-36) 11/18/17 09:09 ALT 19 U/L (9-52) 11/18/17 09:09 Alkaline Phosphatase 64 U/L (38-126) 11/18/17 09:09 C-React Prot High Sens > 15.00 mg/L (1.00-3.00) H 11/03/17 18:36 Total Protein 6.7 g/dL (6.3-8.3) 11/18/17 09:09 Albumin 3.4 g/dL (3.5-5.0) L 11/18/17 09:09 Globulin 3.3 gm/dL (2.2-3.9) 11/18/17 09:09 Albumin/Globulin Ratio 1.0 (1.0-2.1) 11/18/17 09:09 Urine Color Yellow (YELLOW) 11/10/17 23:05 Urine Clarity Hazy (Clear) 11/10/17 23:05 Urine pH 6.0 (5.0-8.0) 11/10/17 23:05 Ur Specific [place] 1.015 (1.003-1.030) 11/10/17 23:05 Urine Protein 1+ mg/dL (NEGATIVE) H 11/10/17 23:05 Urine Glucose (UA) Normal mg/dL (Normal) 11/10/17 23:05 Urine Ketones Negative mg/dL (NEGATIVE) 11/10/17 23:05 Urine Blood 1+ (NEGATIVE) H 11/10/17 23:05 Urine Nitrate Negative (NEGATIVE) 11/10/17 23:05 Urine Bilirubin Negative (NEGATIVE) 11/10/17 23:05 Urine Urobilinogen 4.0 mg/dL (0.2-1.0) H 11/10/17 23:05 Ur Leukocyte Esterase 2+ Mirela/uL (Negative) H 11/10/17 23:05 Urine WBC (Auto) 64 /hpf (0-5) H 11/10/17 23:05 Urine RBC (Auto) 5 /hpf (0-3) H 11/10/17 23:05 Ur Squamous Epith Cells 3 /hpf (0-5) 11/10/17 23:05 Urine Bacteria Many (<OCC) H 11/10/17 23:05 Blood Type A POSITIVE 11/15/17 10:54 Antibody Screen Negative 11/15/17 10:54 - Hospital Course Hospital Course: Upon admission: 72 year old female with a past medical history of thrombocytosis and hypertension who comes in after being referred from Dr. Pierre. The patient reports left foot gangrene that was recently discovered in her doctor's office. The patient states that she has had an ulcer on the foot for the past two years that was caused by her not wearing her compression stockings and her bare foot rubbing against the shoe and causing a break in the skin. The patient states she tried to treat it with Neosporin three times a day but it didn't improve the symptoms. The patient reports pain in conjunction with the gangrene. She recently began taking Oxycodone which has improved the pain. She denies any chest pain, headaches, shortness of breath, nausea, vomiting, changes in vision, polyuria, polydipsia, syncopal episodes, palpitations, or any other complaints. Hospital course: Patient was admitted for Gangrene of the left foot. Dr. Pierre consulted. Lower extremity duplex showed occlusion of the left popliteal and anterior tibial. Angio 11/03/17 showed: 1. Moderate atherosclerotic disease of the right leg with 50-60% stenosis of the distal SFA. The popliteal artery occludes behind the knee. Intermittent reconstitution of the peroneal artery and posterior tibial artery with the posterior tibial artery crossing the ankle 2. Multifocal short segment stenoses of the left SFA with occlusion of the distal SFA. Intermittent reconstitution of the posterior tibial artery mid calf to the level of the ankle. Small arterial collaterals noted on the dorsum of the foot. 3. Mild splenomegaly with splenic infarct. 4. Scattered colonic diverticula. 5. Pleural-based nodular density in the right lower lobe. For low-risk or high-risk patients consider a follow-up chest CT at 3 months. If unchanged consider an additional follow-up CT at 18-24 months. Alternatively (or additionally) PET/CT or tissue sampling could be performed. 6. Hepatomegaly 11/07/17: Aortofemoral angiography of Left femoral Artery- multiple popliteal stenoses, trifurcation occlusion, Posterior Tibial Artery is major vessel to left foot, several pedial disease, only remnant of dorsalis pedis in the left foot Dr. Gan was consulted (Cardiology) for surgical clearance. Echo was done and showed moderate-severe concentric LVH; mild LV diastolic dysfunction; mildly dilated LA; trace to mild MR; LVEF 66%. Patient was scheduled for stress test on 11/08, however, patient refused. On 11/10/17 patient consented to stress test which found normal findings. Per Dr. Gan, There is no high cardiac risk feature noted. Likely Cardiac risk is moderate or Intermediate (3-5%). If benefit outweighs the risk please proceed with the surgery. 11/15/17: Patient was taken for left BKA. Patient was also found to have Hypertensive urgency on admission with BP 225/ 108. Clonindine 0.2mg given in the Emergency room. Started Amlodipine 10mg PO daily and Losartan 25mg PO daily. Agronomy Professor (Dr. Aguilar) consulted for thrombocytosis. Dr. Aguilar started patient on Hydera 500mg PO BID. Upon discharge: Patient was discharged for Rehab at [facility] with instructions to request Dr. Hill for primary while at [facility]. Please note that this is a summary of events. For more details, please see complete medical record. Discharge Exam - Head Exam Head Exam: ATRAUMATIC, NORMAL INSPECTION, NORMOCEPHALIC - Eye Exam Eye Exam: EOMI, Normal appearance, PERRL - ENT Exam ENT Exam: Mucous Membranes Moist - Respiratory Exam Respiratory Exam: Clear to PA & Lateral, NORMAL BREATHING PATTERN, UNREMARKABLE - Cardiovascular Exam Cardiovascular Exam: RRR, +S1, +S2 - GI/Abdominal Exam GI & Abdominal Exam: Normal Bowel Sounds, Unremarkable - Extremities Exam Additional comments: s/p left BKA - Neurological Exam Neurological exam: Alert, Oriented x3 - Psychiatric Exam Psychiatric exam: Normal Affect, Normal Mood - Skin Skin Exam: Dry, Normal Color, Warm Discharge Plan - Discharge Medications Prescriptions: Gabapentin 300 mg PO HS #30 capsule - Follow Up Plan Condition: GUARDED Disposition: REHAB FACILITY/REHAB UNIT Instructions: Amputation, [id number], Pulmonary Embolism (DC), Pulmonary Embolism (GEN), Deep Venous Thrombosis (DC), Deep Venous Thrombosis (GEN) Additional Instructions: Patient is to be discharged to [facility], per Dr. Gallegos. Patient is to be followed by Dr. Hill while at [facility]. Upon discharge from [facility], patient is to follow up with Dr. Pierre in 1 week. Patient is to continue to take her medications as directed by her primary care physician. Any new or concerning symptoms, please call or return to the nearest emergency care facility. Referrals: Juma Pierre Jr., MD [Staff Provider] -
[2017-11-18 19:11] VITALS: BP 125/70; PULSE 83; TEMP 98.5; O2SAT 95
--- NOTE | 2017-11-19 07:50 | CP.PCM.PN ---
Subjective - Date & Time of Evaluation Date of Evaluation: 11/18/17 Time of Evaluation: 08:05 - Subjective Subjective: Patient seen and evaluated No cardiac events noted Pain better at the operative site Possible discharge today Objective - Vital Signs/Intake and Output Vital Signs (last 24 hours): Temp Pulse Resp BP Pulse Ox 98.5 F 83 20 125/70 95 11/18/17 15:40 11/18/17 15:40 11/18/17 15:40 11/18/17 15:40 11/18/17 15:40 - Labs Labs: 11/18/17 09:09 11/18/17 09:09 PT 13.1 SECONDS (9.7-12.2) H 11/03/17 17:21 INR 1.1 11/03/17 17:21 APTT 88 SECONDS (21-34) H D 11/14/17 21:17
--- NOTE | 2017-11-19 07:50 | CP.PCM.PN ---
Subjective - Date & Time of Evaluation Date of Evaluation: 11/17/17 Time of Evaluation: 09:15 - Subjective Subjective: Patient seen and evaluated No cardiac events noted Pain better at the operative site Objective - Vital Signs/Intake and Output Vital Signs (last 24 hours): Temp Pulse Resp BP Pulse Ox 98.5 F 83 20 125/70 95 11/18/17 15:40 11/18/17 15:40 11/18/17 15:40 11/18/17 15:40 11/18/17 15:40 - Labs Labs: 11/18/17 09:09 11/18/17 09:09 PT 13.1 SECONDS (9.7-12.2) H 11/03/17 17:21 INR 1.1 11/03/17 17:21 APTT 88 SECONDS (21-34) H D 11/14/17 21:17
== END 2017-11-18 20:05 | DRG 240 ==
LOC: C.ER 15:05 → C.9E 17:53 → C.6T 18:20 → C.5S 11-13 22:47
PROVIDERS: ADMIT Internal Medicine; ATTEND Internal Medicine
PROC: B40D1ZZ Plain Radiography of Aorta and Bilateral Lower Extremity Arteries using Low Osmolar Contrast (ICD-10-PCS; 2017-11-07)
PROC: 04HL33Z Insertion of Infusion Device into Left Femoral Artery, Percutaneous Approach (ICD-10-PCS; 2017-11-07)
PROC: 0Y6G0ZZ Detachment at Left Knee Region, Open Approach (ICD-10-PCS; principal; 2017-11-15 12:30)
DX: I70.262 Atherosclerosis of native arteries of extremities with gangrene, left leg (principal); L97.829 Non-pressure chronic ulcer of other part of left lower leg with unspecified severity; I82.432 Acute embolism and thrombosis of left popliteal vein; N39.0 Urinary tract infection, site not specified; I16.0 Hypertensive urgency; K57.30 Diverticulosis of large intestine without perforation or abscess without bleeding; I70.202 Unspecified atherosclerosis of native arteries of extremities, left leg; F06.4 Anxiety disorder due to known physiological condition; D45 Polycythemia vera; K21.9 Gastro-esophageal reflux disease without esophagitis

== ENCOUNTER 2017-12-12 08:30 | Inpatient (IN) | payer MEDICARE ==
[2017-12-12 09:34] LABS: BASO # 0.1 K/uL (0.0-0.2); BASO % 1.5 % (0.0-2.0); EOS # 0.3 K/uL (0.0-0.7); EOS % 3.7 % (0.0-4.0); LYMPH # 1.3 K/uL (1.0-4.3); MEAN CELL VOLUME 100.9 fL (81.0-99.0); MEAN CORPUSCULAR HGB CONC 33.7 g/dL (33.0-37.0); MEAN PLATELET VOLUME 8.5 fL (7.2-11.7); MONO # 0.6 K/uL (0.0-0.8); MONO % 7.8 % (0.0-10.0); NEUT # 5.5 K/uL (1.8-7.0); NRBC % 0.1 % (0.0-2.0); RBC 4.23 Mil/uL (3.80-5.20); RED CELL DISTRIBUTION WIDTH 20.7 % (11.5-14.5); WHITE BLOOD COUNT 7.8 K/uL (4.8-10.8)
[2017-12-12 09:42] LABS: HEMOGLOBIN 14.4 g/dL (11.0-16.0)
[2017-12-12 09:43] LABS: INR 1.1; PROTHROMBIN TIME 12.4 SECONDS (9.7-12.2)
[2017-12-12 09:47] LABS: ALBUMIN 3.4 g/dL (3.5-5.0); ALT/SGPT 18 U/L (9-52); AST/SGOT 20 U/L (14-36); BLOOD UREA NITROGEN 21 mg/dL (7-17); CALCIUM 9.6 mg/dl (8.6-10.4); GFR AFRICAN-AMERICAN > 60; GFR NON-AFRICAN AMERICAN > 60
--- NOTE | 2017-12-12 09:52 | C.PDOC ---
History Of Present Illness 72-year-old female, presents to the emergency department with complaints of leg swelling. Patient is s/p left BKA two weeks ago by Gabby. Her family called his office yesterday, complaining of ongoing swelling, resulting in her being referred to ED for further evaluation. Patient denies chest pain, fever, shortness of breath, nausea/vomiting. Time Seen by Provider: 12/12/17 08:35 Chief Complaint (Nursing): Lower Extremity Problem/Injury History Per: Patient History/Exam Limitations: no limitations Past Medical History Reviewed: Historical Data, Nursing Documentation, Vital Signs Vital Signs: Last Vital Signs Temp 98.7 F 12/12/17 17:22 Pulse 95 H 12/12/17 17:22 Resp 20 12/12/17 17:22 BP 170/72 H 12/12/17 17:22 Pulse Ox 93 L 12/12/17 18:03 - Medical History PMH: HTN Surgical History: Tonsillectomy - [facility] Procedures DETACHMENT AT LEFT KNEE REGION, OPEN APPROACH (11/03/17) INSERTION OF INFUSION DEVICE INTO L FEM ART, PERC APPROACH (11/03/17) PLAIN RADIOGRAPHY OF AORTA, BI LE ART USING L OSM CONTRAST (11/03/17) Family History: States: No Known Family Hx - Social History Hx Alcohol Use: Yes Hx Substance Use: No - Immunization History Hx Tetanus Toxoid Vaccination: No Hx Influenza Vaccination: Yes Hx Pneumococcal Vaccination: Yes Review Of Systems Constitutional: Negative for: Fever, Chills Cardiovascular: Negative for: Chest Pain, Palpitations Respiratory: Negative for: Shortness of Breath Gastrointestinal: Negative for: Nausea, Vomiting Musculoskeletal: Positive for: Other (leg swelling, surgery site.) Neurological: Negative for: Weakness, Numbness Physical Exam - Physical Exam Appears: Non-toxic, No Acute Distress Skin: Normal Color, Warm, Dry, No Diaphoretic, No Rash Head: Normacephalic Eye(s): bilateral: PERRL Oral Mucosa: Moist Lips: Normal Appearing Neck: Normal ROM Chest: Symmetrical Cardiovascular: Rhythm Regular, Murmur (3/6, systolic) Respiratory: Normal Breath Sounds, No Decreased Breath Sounds, No Accessory Muscle Use Extremity: Capillary Refill (<2 seconds), Other (Left lower extremity. There is a BKA, bigg sutures intact. No cellulitis. (+) swelling is noted ) Pulses: Left Femoral: Normal, Right Femoral: Normal Neurological/Psych: Oriented x3, Normal Speech ED Course And Treatment - Laboratory Results Result Diagrams: 12/12/17 09:29 12/12/17 09:29 ECG: Interpreted By Me, Viewed By Me ECG Rhythm: Sinus Rhythm ECG Interpretation: No Acute Changes Interpretation Of ECG: Left axis deviation. normal intervals. Rate From EC O2 Sat by Pulse Oximetry: 93 (RA) Pulse Ox Interpretation: Normal Medical Decision Making Medical Decision Making: Plan: * Plan: * CT Angio, Abd * EKG * CMP * CBC, PT/PTT * Doppler * Reassess and Disposition 10:15 Pts scan + for DVT. dvt - discussed with Dr. Pierre and will admit to medicine. Medical attending notified. Disposition Discussed With : Fredy Cardenas Doctor Will See Patient In The: Hospital Counseled Patient/Family Regarding: Studies Performed, Diagnosis - Disposition Disposition: HOSPITALIZED Disposition Time: 11:05 Condition: FAIR - Clinical Impression Clinical Impression: Deep venous thrombosis of lower extremity - Scribe Statement The provider has reviewed the documentation as recorded by the Scribe (Abhi Aguilar) All medical record entries made by the Scribe were at my direction and personally dictated by me. I have reviewed the chart and agree that the record accurately reflects my personal performance of the history, physical exam, medical decision making, and the department course for this patient. I have also personally directed, reviewed, and agree with the discharge instructions and disposition.
[2017-12-12] MEDS ORDERED: Iodixanol 320 mg/ml 150 ml Bottle IV ONE (10:42)
--- NOTE | 2017-12-12 11:32 | VASCLAB ---
PROCEDURE: Left Lower Extremity Venous Duplex Exam. HISTORY: Leg swelling PRIORS: None. TECHNIQUE: Left common femoral, femoral, popliteal and posterior tibial, peroneal and great saphenous veins were evaluated. Flow was assessed with color Doppler, compressibility, assessment of phasic flow and augmentation response. Report prepared by SHANITA Lawton, RVT FINDINGS: LEFT: 1. Common Femoral Vein: 1.1. Compressibility - Incompressible: Thrombus - Acute : Flow - Absent : Augmentation -Normal: Reflux - None. 2. Femoral Vein: 2.1. Compressibility - Incompressible: Thrombus - Acute: Flow - Absent : Augmentation -Normal: Reflux - None. 3. Popliteal Vein: 3.1. Below knee amputation 4. Posterior Tibial Vein: 4.1. Below knee amputation 5. Peroneal Vein: 5.1. Below knee amputation 6. Great Saphenous Vein: (upper) 6.1. Compressibility - Incompressible: Thrombus - Acute: Flow - Absent : Augmentation - Normal: Reflux - None. OTHER FINDINGS: IMPRESSION: 1. Totally occluding acute deep vein thrombosis, of the left common femoral and femoral veins. 2. Superficial phlebitis of the left great saphenous vein. The above findings were reported by the cardiovascular technologist, to emergency room physician Dr. Perez, at 10:06 a.m.
--- NOTE | 2017-12-12 13:08 | CT ---
PROCEDURE: CT Abdomen and Pelvis with contrast HISTORY: leg swelling s/p amputation COMPARISON: CT angiogram abdomen/ pelvis 11/03/2017 TECHNIQUE: Images through the abdomen and pelvis were performed following the intravenous administration of contrast material. Contrast dose: 150 mL Visipaque 320 Radiation dose: Total exam DLP = 938.12 mGy-cm. This CT exam was performed using one or more of the following dose reduction techniques: Automated exposure control, adjustment of the mA and/or kV according to patient size, and/or use of iterative reconstruction technique. FINDINGS: LOWER THORAX: Unremarkable. LIVER: Unremarkable. No gross lesion or ductal dilatation. GALLBLADDER AND BILE DUCTS: Unremarkable. PANCREAS: Unremarkable. No gross lesion or ductal dilatation. SPLEEN: Unremarkable. ADRENALS: Unremarkable. No mass. 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 No renal mass, calculus or hydronephrosis. VASCULATURE: No evidence of abdominal aortic aneurysm. There is thrombus in the inferior vena cava, below the level of the renal veins. This extends in a continuous fashion to the left common iliac vein, left internal and external iliac veins and left lower extremity branch vessels. No right iliac thrombus is evident. BOWEL: No evidence of bowel obstruction. Moderate rectal feces. APPENDIX: Not identified. No secondary findings. PERITONEUM: Unremarkable. No free fluid. No free air. LYMPH NODES: Unremarkable. No enlarged lymph nodes. BLADDER: Unremarkable. REPRODUCTIVE: Uterus significant for dominant fundal fibroid measuring 5.4 cm in diameter. Smaller partially calcified fibroids are evident. BONES: Mild superior L1 vertebral endplate compression deformity/Schmorl's node, nonacute. This is evident on prior CT examination of 11/03/2017. OTHER FINDINGS: Subcutaneous edema of the left lower extremity. IMPRESSION: Deep venous thrombosis involving the infrarenal inferior vena cava, left common iliac and internal and external iliac veins and left lower extremity veins included in this examination. Subcutaneous edema of the left lower extremity.
[2017-12-12] MEDS: Heparin25000 units/250ml 1/2NS 25,000 UNITS/250 ML BAG IV PRN (13:30)
[2017-12-12] MEDS ORDERED: Oxycodone/Acetaminophen 5/325 mg Tab ONE (16:08)
[2017-12-12] MEDS: Oxycodone/Acetaminophen 5/325 mg Tab PO PRN ×2 (16:13→22:09)
--- NOTE | 2017-12-12 16:42 | CP.PCM.CON ---
History of Present Illness - History of Present Illness History of Present Illness: Surgery Consult note. Dr. Pierre 72yo F with PMHx of HTN, here for evaluation of left BKA stump swelling. BKA performed by Dr. Pierre on 11/15/17. Patient states that she was at the rehab facility and noted gradual swelling and redness of the entire left BKA stump. Patient denies any pain. No Fevers or chills. Denies any Chest pain, no SOB. No Abd pain. no N/V/D. No sick contacts. PMHx: HTN, Thrombocytosis PSHx: Tonsillectomy, R Eye cataract, Left BKA 11/15/17. NKDA Social Hx: Admits to occasional EOTH use. Denies Tobacco use. Denies illicit drugs use. NKDA Review of Systems - Review of Systems All systems: reviewed and no additional remarkable complaints except - Constitutional Constitutional: absent: Chills, Fever - Cardiovascular Cardiovascular: absent: Chest Pain, Dyspnea - Respiratory Respiratory: absent: Cough, Dyspnea - Gastrointestinal Gastrointestinal: absent: Abdominal Pain, Diarrhea, Nausea, Vomiting - Genitourinary Genitourinary: absent: Dysuria - Integumentary Additional comments: left lower leg swelling and erythema Past Patient History - Infectious Disease Hx of Infectious Diseases: None - Past Medical History & Family History Past Medical History?: Yes - Past Social History Smoking Status: Never Smoked - CARDIAC Hx Hypertension: Yes - HEMATOLOGICAL/ONCOLOGICAL Hx Blood Disorders: Yes Other/Comment: Hx of elevated platelet count. - MUSCULOSKELETAL/RHEUMATOLOGICAL Hx Falls: No - PSYCHIATRIC Hx Substance Use: No - SURGICAL HISTORY Hx Tonsillectomy: Yes - ANESTHESIA Hx Anesthesia: Yes Hx Anesthesia Reactions: No Hx Malignant Hyperthermia: No Meds Allergies/Adverse Reactions: Allergies Allergy/AdvReac Type Severity Reaction Status Date / Time No Known Allergies Allergy Verified 12/12/17 08:38 - Medications Medications: Current Medications Acetaminophen (Tylenol 325mg Tab) 650 mg PO Q6 PRN PRN Reason: Pain, MILD(1-3) Amlodipine Besylate (Norvasc) 10 mg PO DAILY [facility] Aspirin (Aspirin) 325 mg PO DAILY JUNE Gabapentin (Neurontin) 300 mg PO HS JUNE Gabapentin (Neurontin) 100 mg PO TID [facility] Last Admin: 12/12/17 15:47 Dose: 100 mg Heparin Sodium/Sodium Chloride (Heparin 11063 Units/250ml 1/2 Normal Saline) 25 ,000 units in 250 mls @ 13.064 mls/hr IV .Q19H9M PRN; Protocol; 18 UNITS/KG/HR PRN Reason: ADJUST RATE PER PROTOCOL Last Admin: 12/12/17 13:30 Dose: 18 units/kg/hr, 13.064 mls/hr Losartan Potassium (Cozaar) 100 mg PO DAILY JUNE Last Admin: 12/12/17 16:14 Dose: 100 mg Oxycodone/Acetaminophen (Percocet 5/325 Mg Tab) 1 tab PO Q4H PRN PRN Reason: Pain, moderate (4-7) Stop: 12/15/17 12:39 Last Admin: 12/12/17 16:13 Dose: 1 tab Physical Exam - Constitutional Appears: Well, Non-toxic, No Acute Distress - Head Exam Head Exam: ATRAUMATIC, NORMAL INSPECTION, NORMOCEPHALIC - Eye Exam Eye Exam: EOMI, Normal appearance - ENT Exam ENT Exam: Mucous Membranes Moist - Respiratory Exam Respiratory Exam: NORMAL BREATHING PATTERN. absent: Accessory Muscle Use, Respiratory Distress - Cardiovascular Exam Cardiovascular Exam: RRR. absent: JVD - GI/Abdominal Exam GI & Abdominal Exam: Soft. absent: Distended, Firm, Guarding, Tenderness - Extremities Exam Additional comments: left BKA site healing well. Gilmer and silk retention sutures in place. Skin edges well approximated. Entire left leg swelling noted and erythematous - Neurological Exam Neurological exam: Alert, Oriented x3 - Psychiatric Exam Psychiatric exam: Normal Affect, Normal Mood Results - Vital Signs Recent Vital Signs: Last Vital Signs Temp 98.3 F 12/12/17 16:07 Pulse 97 H 12/12/17 16:21 Resp 20 12/12/17 16:07 BP 165/86 H 12/12/17 16:21 Pulse Ox 99 12/12/17 16:07 - Labs Result Diagrams: 12/12/17 09:29 12/12/17 09:29 Labs: Laboratory Results - last 24 hr 12/12/17 12/12/17 12/12/17 09:29 09:29 09:29 WBC 7.8 RBC 4.23 Hgb 14.4 D Hct 42.7 MCV 100.9 H D MCH 34.0 H MCHC 33.7 RDW 20.7 H Plt Count 457 H MPV 8.5 Neut % (Auto) 70.0 Lymph % (Auto) 17.0 L [place] % (Auto) 7.8 Eos % (Auto) 3.7 Baso % (Auto) 1.5 Neut # (Auto) 5.5 Lymph # (Auto) 1.3 [place] # (Auto) 0.6 Eos # (Auto) 0.3 Baso # (Auto) 0.1 PT 12.4 H INR 1.1 APTT 33 Sodium 141 Potassium 4.3 Chloride 103 Carbon Dioxide 28 Anion Gap 15 BUN 21 H Creatinine 0.7 Est GFR ( Amer) > 60 Est GFR (Non-Af Amer) > 60 Random Glucose 94 Calcium 9.6 Total Bilirubin 0.5 AST 20 ALT 18 Alkaline Phosphatase 61 Total Protein 6.8 Albumin 3.4 L Globulin 3.5 Albumin/Globulin Ratio 1.0 Assessment & Plan - Assessment and Plan (Free Text) Assessment: 72yo F with left lower extremity swelling - CTA noted with extensive DVT infrarenally in IVC Plan: - To CATH tomorrow for selective angio and possible catheter directed thrombolysis and IVC filter - NPO past midnight - medical maximization Further recs as per Dr Gabby Verdin PGY1 surgery pager: [phone]
[2017-12-12] MEDS ORDERED: Enoxaparin 80 mg Syringe SC SCH (22:00)
--- NOTE | 2017-12-12 23:53 | CP.PCM.HP ---
History of Present Illness - History of Present Illness History of Present Illness: Chief Complaint : Lower Extremity Problem/Injury HPI: 72-year-old white female, presents to the emergency department with complaints of leg swelling. Patient is s/p left BKA two weeks ago by Gabby. Her family called his office yesterday, complaining of ongoing swelling, resulting in her being referred to ED for further evaluation. Patient denies chest pain, fever, shortness of breath, nausea/vomiting. Present on Admission - Present on Admission Any Indicators Present on Admission: Yes Review of Systems - Constitutional Constitutional: absent: As Per HPI, Anorexia, Chills, Daytime Sleepiness, Excessive Sweating, Fatigue, Fever, Frequent Falls, Headache, Increased Appetite , Lethargy, Malaise, Night Sweats, Snoring, Sleep Apnea, Weight Gain, Weight Loss, Weakness, Other - EENT Eyes: absent: As Per HPI, Blind Spots, Blurred Vision, Change in Vision, Decreased Night Vision, Diplopia, Discharge, Dry Eye, Exophthalmos, Floaters, Irritation, Itchy Eyes, Loss of Peripheral Vision, Pain, Photophobia, Requires Corrective Lenses, Sees Flashes, Spots in Vision, Tunnel Vision, Other Visual Disturbances, Loss of Vision, Other Nose/Mouth/Throat: absent: As Per HPI, Epistaxis, Nasal Congestion, Nasal Discharge, Nasal Obstruction, Nasal Trauma, Nose Pain, Post Nasal Drip, Sinus Pain, Sinus Pressure, Bleeding Gums, Change in Voice, Dental Pain, Dry Mouth, Dysphagia, Halitosis, Hoarsness, Lip Swelling, Mouth Lesions, Mouth Pain, Odynophagia, Sore Throat, Throat Swelling, Tongue Swelling, Facial Pain, Neck Pain, Neck Mass, Other - Breasts Breasts: absent: As Per HPI, Change in Shape, Mass, Pain, Nipple Discharge, Nipple Inversion, Skin Changes, Swelling, Other - Cardiovascular Cardiovascular: Leg Edema, Leg Ulcers, Pedal Edema, Radiating Pain. absent: As Per HPI, Acrocyanosis, Chest Pain, Chest Pain at Rest, Chest Pain with Activity , Claudication, Diaphoresis, Dyspnea, Dyspnea on Exertion, Edema, Irregular Heart Rhythm, Pain Radiating to Arm/Neck/Jaw, Lightheadedness, Orthopnea, Palpitations, Paroxysmal Nocturnal Dyspnea, Rapid Heart Rate, Slow Heart Rate, Syncope, Other - Respiratory Respiratory: absent: As Per HPI, Cough, Dyspnea, Hemoptysis, Dyspnea on Exertion , Wheezing, Snoring, Stridor, Pain on Inspiration, Chest Congestion, Excessive Mucous Production, Change in Mucous Color, Pain with Coughing, Other - Gastrointestinal Gastrointestinal: absent: As Per HPI, Abdominal Pain, Belching, Bloating, Change in Bowel Habits, Change in Stool Character, Coffee Ground Emesis, Constipation, Cramping, Diarrhea, Dyspepsia, Dysphagia, Early Satiety, Excessive Flatus, Fecal Incontinence, Heartburn, Hematemesis, Hematochezia, Loose Stools, Melena, Nausea, Odynophagia, Temesmus, Vomiting, Other Past Patient History - Infectious Disease Hx of Infectious Diseases: None - Past Medical History & Family History Past Medical History?: Yes - Past Social History Smoking Status: Never Smoked - CARDIAC Hx Hypertension: Yes - PULMONARY Hx Respiratory Disorders: No - NEUROLOGICAL Hx Neurological Disorder: No - HEENT Hx HEENT Problems: No - RENAL Hx Chronic Kidney Disease: No - ENDOCRINE/METABOLIC Hx Endocrine Disorders: No - HEMATOLOGICAL/ONCOLOGICAL Hx Blood Disorders: Yes Other/Comment: Hx of elevated platelet count. - INTEGUMENTARY Hx Dermatological Problems: No - MUSCULOSKELETAL/RHEUMATOLOGICAL Hx Musculoskeletal Disorders: No Hx Falls: No - GASTROINTESTINAL Hx Gastrointestinal Disorders: No - GENITOURINARY/GYNECOLOGICAL Hx Genitourinary Disorders: No - PSYCHIATRIC Hx Substance Use: No - SURGICAL HISTORY Hx Tonsillectomy: Yes - ANESTHESIA Hx Anesthesia: Yes Hx Anesthesia Reactions: No Hx Malignant Hyperthermia: No Has any member of the family had a problem w/ anesthesia?: No Meds Allergies/Adverse Reactions: Allergies Allergy/AdvReac Type Severity Reaction Status Date / Time No Known Allergies Allergy Verified 12/12/17 08:38 Physical Exam - Constitutional Appears: No Acute Distress - Head Exam Head Exam: ATRAUMATIC, NORMAL INSPECTION, NORMOCEPHALIC - Eye Exam Eye Exam: EOMI, Normal appearance, PERRL Pupil Exam: NORMAL ACCOMODATION, PERRL - Respiratory Exam Respiratory Exam: Clear to Auscultation Bilateral, NORMAL BREATHING PATTERN - Cardiovascular Exam Cardiovascular Exam: REGULAR RHYTHM, +S1, +S2, Systolic Murmur - GI/Abdominal Exam GI & Abdominal Exam: Normal Bowel Sounds, Soft. absent: Tenderness - Rectal Exam Rectal Exam: Deferred - Extremities Exam Additional comments: left BKA bigg situres intact swelling in LLE pulsese present in RLE - Back Exam Back exam: NORMAL INSPECTION - Neurological Exam Neurological exam: Alert, CN II-XII Intact, Normal Gait, Oriented x3, Reflexes Normal - Psychiatric Exam Psychiatric exam: Anxious - Skin Skin Exam: Dry, Intact, Normal Color, Warm Results - Vital Signs Recent Vital Signs: Last Vital Signs Temp 97.9 F 12/12/17 23:43 Pulse 89 12/12/17 23:43 Resp 20 12/12/17 23:43 BP 123/67 12/12/17 23:43 Pulse Ox 95 12/12/17 23:43 - Labs Result Diagrams: 12/13/17 05:58 12/13/17 05:58 Labs: Laboratory Results - last 24 hr 12/12/17 12/12/17 12/12/17 09:29 09:29 09:29 WBC 7.8 RBC 4.23 Hgb 14.4 D Hct 42.7 MCV 100.9 H D MCH 34.0 H MCHC 33.7 RDW 20.7 H Plt Count 457 H MPV 8.5 Neut % (Auto) 70.0 Lymph % (Auto) 17.0 L [place] % (Auto) 7.8 Eos % (Auto) 3.7 Baso % (Auto) 1.5 Neut # (Auto) 5.5 Lymph # (Auto) 1.3 [place] # (Auto) 0.6 Eos # (Auto) 0.3 Baso # (Auto) 0.1 PT 12.4 H INR 1.1 APTT 33 Sodium 141 Potassium 4.3 Chloride 103 Carbon Dioxide 28 Anion Gap 15 BUN 21 H Creatinine 0.7 Est GFR ( Amer) > 60 Est GFR (Non-Af Amer) > 60 Random Glucose 94 Calcium 9.6 Total Bilirubin 0.5 AST 20 ALT 18 Alkaline Phosphatase 61 Total Protein 6.8 Albumin 3.4 L Globulin 3.5 Albumin/Globulin Ratio 1.0 12/12/17 19:24 WBC RBC Hgb Hct MCV MCH MCHC RDW Plt Count MPV Neut % (Auto) Lymph % (Auto) [place] % (Auto) Eos % (Auto) Baso % (Auto) Neut # (Auto) Lymph # (Auto) [place] # (Auto) Eos # (Auto) Baso # (Auto) PT INR APTT 61 H D Sodium Potassium Chloride Carbon Dioxide Anion Gap BUN Creatinine Est GFR ( Amer) Est GFR (Non-Af Amer) Random Glucose Calcium Total Bilirubin AST ALT Alkaline Phosphatase Total Protein Albumin Globulin Albumin/Globulin Ratio Assessment & Plan (1) Deep venous thrombosis of lower extremity Assessment and Plan: admit heparin surgical consult with Status: Acute (2) Foot ulcer Status: Acute (3) Gangrene of left foot Status: Acute (4) HTN (hypertension) Status: Acute
[2017-12-13 06:06] LABS: BASO % 0.4 % (0.0-2.0); EOS # 0.4 K/uL (0.0-0.7); EOS % 3.7 % (0.0-4.0); HEMOGLOBIN 13.3 g/dL (11.0-16.0); LYMPH # 0.6 K/uL (1.0-4.3); LYMPH % 5.5 % (20.0-40.0); MEAN CELL VOLUME 100.7 fL (81.0-99.0); MEAN CORPUSCULAR HEMOGLOBIN 34.2 pg (27.0-31.0); MEAN CORPUSCULAR HGB CONC 33.9 g/dL (33.0-37.0); MEAN PLATELET VOLUME 9.1 fL (7.2-11.7); MONO # 0.6 K/uL (0.0-0.8); MONO % 6.2 % (0.0-10.0); NEUT # 8.7 K/uL (1.8-7.0); NEUT % 84.2 % (50.0-75.0); PLATELET COUNT 385 K/uL (130-400); RBC 3.89 Mil/uL (3.80-5.20); WHITE BLOOD COUNT 10.3 K/uL (4.8-10.8)
[2017-12-13 06:42] LABS: BLOOD UREA NITROGEN 24 mg/dL (7-17); GFR AFRICAN-AMERICAN > 60; GFR NON-AFRICAN AMERICAN > 60
[2017-12-13] MEDS: Heparin25000 units/250ml 1/2NS 25,000 UNITS/250 ML BAG IV PRN (06:55)
[2017-12-13 08:51] LABS: LYMPHOCYTE 8 % (20-40); MONOCYTE 7 % (0-10); NEUTROPHIL 85 % (50-75); TOTAL CELLS COUNTED 100
[2017-12-13 08:52] LABS: ANISOCYTOSIS SLIGHT; PLATELET ESTIMATE NORMAL (NORMAL)
[2017-12-13] MEDS ORDERED: Midazolam 2 MG/2 ML VIAL ONE (11:45)
--- NOTE | 2017-12-13 12:09 | CARD ---
APPROVED REPORT EKG Measurement Heart [id number] ID [id number] <Conclusion> Normal sinus rhythm Normal ECG
[2017-12-13] MEDS ORDERED: Lidocaine 2% Inj (20ml) ONE (13:17)
[2017-12-13] MEDS ORDERED: Iodixanol 320 MG/ML 100 ML BOTTLE IV ONE ×2 (13:18→13:26)
--- NOTE | 2017-12-13 15:35 | PCM.SURG1 ---
Surgeon's Initial Post Op Note - Surgeon's Notes Surgeon: raulito Butter Maker: 0 Type of Anesthesia: IV Sedation Anesthesia Administered By: stephania Pre-Operative Diagnosis: ileo femoral thrombosis Operative Findings: option ivcf to ivc from right popliteal. angiojet mechanical thrombolysis via left femoral vein( unable to access popliteal.). 99 % resolution of iliac and ivc clot Post-Operative Diagnosis: same Operation Performed: ivcf via right popliteal. angiojet mechanical thrombolysis via left femoral Specimen/Specimens Removed: 0 Estimated Blood Loss: EBL {In ML}: 100 Blood Products Given: N/A Drains Used: No Drains Post-Op Condition: Good Date of Surgery/Procedure: 12/13/17 Time of Surgery/Procedure: 15:36
--- NOTE | 2017-12-13 17:33 | CP.PCM.CON ---
<Shy Meyer - Last Filed: 12/13/17 18:20> History of Present Illness - History of Present Illness History of Present Illness: ICU Consult Note: Patient is a 72 year old female with past medical history of HTN presented for evaluation of left below the knee amputation stump swelling. Patient underwent BKA with Dr Smith on 11/15/17. Patient was subsequently sent to rehab where she started noticing swelling and redness of the left leg. CTA noted with extensive DVT infrarenally in IVC. Patient underwent ivcf via right popliteal with angiojet mechanical thrombolysis via left femoral today with Dr Smith. Patient was transferred to the ICU post-op for close monitoring. Currently patient is lethargic post procedure. Offers no complaints at this time. Allergies: NKDA Medications: Norvasc 10mg PO daily, Cozaar 100mg PO daily, Gabapentin 100mg PO daily, Medical History: HTN, Thrombocytosis Social History: Admits to occasional EOTH use. Denies Tobacco use. Denies illicit drugs use. Surgical History: Tonsillectomy, R Eye cataract, Left BKA 11/15/17. Past Patient History - Infectious Disease Hx of Infectious Diseases: None - Past Medical History & Family History Past Medical History?: Yes - Past Social History Smoking Status: Never Smoked - CARDIAC Hx Hypertension: Yes - PULMONARY Hx Respiratory Disorders: No - NEUROLOGICAL Hx Neurological Disorder: No - HEENT Hx HEENT Problems: No - RENAL Hx Chronic Kidney Disease: No - ENDOCRINE/METABOLIC Hx Endocrine Disorders: No - HEMATOLOGICAL/ONCOLOGICAL Hx Blood Disorders: Yes Other/Comment: Hx of elevated platelet count. - INTEGUMENTARY Hx Dermatological Problems: No - MUSCULOSKELETAL/RHEUMATOLOGICAL Hx Musculoskeletal Disorders: No Hx Falls: No - GASTROINTESTINAL Hx Gastrointestinal Disorders: No - GENITOURINARY/GYNECOLOGICAL Hx Genitourinary Disorders: No - PSYCHIATRIC Hx Substance Use: No - SURGICAL HISTORY Hx Tonsillectomy: Yes - ANESTHESIA Hx Anesthesia: Yes Hx Anesthesia Reactions: No Hx Malignant Hyperthermia: No Has any member of the family had a problem w/ anesthesia?: No Meds Allergies/Adverse Reactions: Allergies Allergy/AdvReac Type Severity Reaction Status Date / Time No Known Allergies Allergy Verified 12/12/17 08:38 - Medications Medications: Current Medications Acetaminophen (Tylenol 325mg Tab) 650 mg PO Q6 PRN PRN Reason: Pain, MILD(1-3) Amlodipine Besylate (Norvasc) 10 mg PO DAILY [facility] Last Admin: 12/13/17 10:22 Dose: 10 mg Apixaban (Eliquis) 10 mg PO BID [facility] Aspirin (Aspirin) 325 mg PO DAILY [facility] Last Admin: 12/13/17 10:25 Dose: 325 mg Gabapentin (Neurontin) 300 mg PO HS [facility] Last Admin: 12/12/17 22:09 Dose: 300 mg Gabapentin (Neurontin) 100 mg PO TID [facility] Last Admin: 12/13/17 14:41 Dose: Not Given Heparin Sodium/Sodium Chloride (Heparin 86743 Units/250ml 1/2 Normal Saline) 25 ,000 units in 250 mls @ 13.064 mls/hr IV .Q19H9M PRN; Protocol; 18 UNITS/KG/HR PRN Reason: ADJUST RATE PER PROTOCOL Last Admin: 12/13/17 06:55 Dose: 18 units/kg/hr, 13.064 mls/hr Losartan Potassium (Cozaar) 100 mg PO DAILY [facility] Last Admin: 12/13/17 10:22 Dose: 100 mg Oxycodone/Acetaminophen (Percocet 5/325 Mg Tab) 1 tab PO Q4H PRN PRN Reason: Pain, moderate (4-7) Stop: 12/15/17 12:39 Last Admin: 12/12/17 22:09 Dose: 1 tab Physical Exam - Constitutional Appears: Well - Head Exam Head Exam: ATRAUMATIC, NORMAL INSPECTION - Eye Exam Eye Exam: EOMI, Normal appearance Pupil Exam: PERRL - ENT Exam ENT Exam: Mucous Membranes Moist - Respiratory Exam Respiratory Exam: Clear to Auscultation Bilateral, NORMAL BREATHING PATTERN. absent: Rales, Rhonchi, Wheezes - Cardiovascular Exam Cardiovascular Exam: +S1, +S2, Systolic Murmur - GI/Abdominal Exam GI & Abdominal Exam: Normal Bowel Sounds, Soft. absent: Tenderness - Exam Additional comments: Vizcaino draining blood tinged urine - Extremities Exam Additional comments: Right lower extremity with SCD Left lower extremity with dressing - Back Exam Back exam: NORMAL INSPECTION - Neurological Exam Neurological exam: Alert, Oriented x3 - Psychiatric Exam Psychiatric exam: Normal Affect, Normal Mood - Skin Skin Exam: Dry, Normal Color, Warm Results - Vital Signs Recent Vital Signs: Last Vital Signs Temp 97.6 F 12/13/17 17:00 Pulse 64 12/13/17 17:16 Resp 13 12/13/17 17:16 BP 179/93 H 12/13/17 17:16 Pulse Ox 93 L 12/13/17 17:16 - Labs Result Diagrams: 12/13/17 05:58 12/13/17 05:58 Labs: Laboratory Results - last 24 hr 12/12/17 12/13/17 12/13/17 19:24 02:07 05:58 WBC 10.3 RBC 3.89 Hgb 13.3 Hct 39.2 MCV 100.7 H MCH 34.2 H MCHC 33.9 RDW 21.0 H Plt Count 385 MPV 9.1 Neut % (Auto) 84.2 H Lymph % (Auto) 5.5 L Haralson % (Auto) 6.2 Eos % (Auto) 3.7 Baso % (Auto) 0.4 Neut # (Auto) 8.7 H Lymph # (Auto) 0.6 L Haralson # (Auto) 0.6 Eos # (Auto) 0.4 Baso # (Auto) 0.0 Neutrophils % (Manual) 85 H Lymphocytes % (Manual) 8 L Monocytes % (Manual) 7 Platelet Estimate Normal Anisocytosis (manual) Slight Macrocytosis (manual) Slight APTT 61 H D 77 H D Sodium Potassium Chloride Carbon Dioxide Anion Gap BUN Creatinine Est GFR ( Amer) Est GFR (Non-Af Amer) Random Glucose Calcium 12/13/17 05:58 WBC RBC Hgb Hct MCV MCH MCHC RDW Plt Count MPV Neut % (Auto) Lymph % (Auto) [place] % (Auto) Eos % (Auto) Baso % (Auto) Neut # (Auto) Lymph # (Auto) [place] # (Auto) Eos # (Auto) Baso # (Auto) Neutrophils % (Manual) Lymphocytes % (Manual) Monocytes % (Manual) Platelet Estimate Anisocytosis (manual) Macrocytosis (manual) APTT Sodium 138 Potassium 4.0 Chloride 103 Carbon Dioxide 25 Anion Gap 14 BUN 24 H Creatinine 0.9 Est GFR ( Amer) > 60 Est GFR (Non-Af Amer) > 60 Random Glucose 82 Calcium 9.0 Assessment & Plan - Assessment and Plan (Free Text) Assessment: Patient is a 72 year old female with past medical history of HTN presented for evaluation of left below the knee amputation stump swelling. Patient is s/p ivcf via right popliteal with angiojet mechanical thrombolysis via left femoral POD# 0, transferred to the ICU for close monitoring. Neurology: -Patient currently lethargic post procedure -Neurovascular checks -Will monitor closely Cardiology: -Patient with history of HTN -Continue Norvasc 10mg PO daily, Cozaar 100mg PO daily -Continue Heparin drip -Continue Aspirin 325mg PO daily -Continue Neurontin 300mg PO HS and 100mg PO TID -Percocet prn pain Respiratory: -No acute issues at this time -Supplemental O2 as needed Hematology: -History of thrombocytosis -Platelets within normal limits GI/DVT ppx: -Continue Heparin drip -Eliquis 10mg PO BID on hold -SCDs on right leg only Plan discussed with Dr Steve <Ken Steve - Last Filed: 12/13/17 18:53> Meds - Medications Medications: Current Medications Acetaminophen (Tylenol 325mg Tab) 650 mg PO Q6 PRN PRN Reason: Pain, MILD(1-3) Amlodipine Besylate (Norvasc) 10 mg PO DAILY [facility] Last Admin: 12/13/17 10:22 Dose: 10 mg Apixaban (Eliquis) 10 mg PO BID [facility] Last Admin: 12/13/17 18:45 Dose: Not Given Aspirin (Aspirin) 325 mg PO DAILY [facility] Last Admin: 12/13/17 10:25 Dose: 325 mg Gabapentin (Neurontin) 300 mg PO HS [facility] Last Admin: 12/12/17 22:09 Dose: 300 mg Gabapentin (Neurontin) 100 mg PO TID [facility] Last Admin: 12/13/17 18:04 Dose: Not Given Heparin Sodium/Sodium Chloride (Heparin 29599 Units/250ml 1/2 Normal Saline) 25 ,000 units in 250 mls @ 13.064 mls/hr IV .Q19H9M PRN; Protocol; 18 UNITS/KG/HR PRN Reason: ADJUST RATE PER PROTOCOL Last Admin: 12/13/17 06:55 Dose: 18 units/kg/hr, 13.064 mls/hr Losartan Potassium (Cozaar) 100 mg PO DAILY [facility] Last Admin: 12/13/17 10:22 Dose: 100 mg Oxycodone/Acetaminophen (Percocet 5/325 Mg Tab) 1 tab PO Q4H PRN PRN Reason: Pain, moderate (4-7) Stop: 12/15/17 12:39 Last Admin: 12/12/17 22:09 Dose: 1 tab Results - Vital Signs Recent Vital Signs: Last Vital Signs Temp 97.6 F 12/13/17 17:00 Pulse 61 12/13/17 18:40 Resp 14 12/13/17 18:40 BP 175/90 H 12/13/17 18:03 Pulse Ox 96 12/13/17 18:40 - Labs Result Diagrams: 12/13/17 05:58 12/13/17 05:58 Labs: Laboratory Results - last 24 hr 12/12/17 12/13/17 12/13/17 19:24 02:07 05:58 WBC 10.3 RBC 3.89 Hgb 13.3 Hct 39.2 MCV 100.7 H MCH 34.2 H MCHC 33.9 RDW 21.0 H Plt Count 385 MPV 9.1 Neut % (Auto) 84.2 H Lymph % (Auto) 5.5 L Har[place]on % (Auto) 6.2 Eos % (Auto) 3.7 Baso % (Auto) 0.4 Neut # (Auto) 8.7 H Lymph # (Auto) 0.6 L Har[place]on # (Auto) 0.6 Eos # (Auto) 0.4 Baso # (Auto) 0.0 Neutrophils % (Manual) 85 H Lymphocytes % (Manual) 8 L Monocytes % (Manual) 7 Platelet Estimate Normal Anisocytosis (manual) Slight Macrocytosis (manual) Slight APTT 61 H D 77 H D Sodium Potassium Chloride Carbon Dioxide Anion Gap BUN Creatinine Est GFR ( Amer) Est GFR (Non-Af Amer) Random Glucose Calcium 12/13/17 05:58 WBC RBC Hgb Hct MCV MCH MCHC RDW Plt Count MPV Neut % (Auto) Lymph % (Auto) Har[place]on % (Auto) Eos % (Auto) Baso % (Auto) Neut # (Auto) Lymph # (Auto) [place] # (Auto) Eos # (Auto) Baso # (Auto) Neutrophils % (Manual) Lymphocytes % (Manual) Monocytes % (Manual) Platelet Estimate Anisocytosis (manual) Macrocytosis (manual) APTT Sodium 138 Potassium 4.0 Chloride 103 Carbon Dioxide 25 Anion Gap 14 BUN 24 H Creatinine 0.9 Est GFR ( Amer) > 60 Est GFR (Non-Af Amer) > 60 Random Glucose 82 Calcium 9.0 Attending/Attestation - Attestation I have personally seen and examined this patient.: Yes I have fully participated in the care of the patient.: Yes I have reviewed all pertinent clinical information: Yes Notes (Text): 12/13/17 18:51 patient seen and examined ivcf to ivc from right popliteal. angiojet mechanical thrombolysis via left femoral vein( unable to access popliteal.). 99% resolution of iliac and ivc clot For ileo femoral thrombosis
[2017-12-13] MEDS: Oxycodone/Acetaminophen 5/325 mg Tab PO PRN (22:52)
--- NOTE | 2017-12-13 23:28 | CP.PCM.PN ---
Subjective - Date & Time of Evaluation Date of Evaluation: 12/13/17 Time of Evaluation: 18:10 - Subjective Subjective: pt seen and examined at bedside.pt is s/p thrombectomy, LLe s/p OR, pt is feeling better Objective - Vital Signs/Intake and Output Vital Signs (last 24 hours): Temp Pulse Resp BP Pulse Ox 97.6 F 58 L 14 178/82 H 97 12/13/17 17:00 12/13/17 19:10 12/13/17 19:10 12/13/17 19:01 12/13/17 19:10 Intake and Output: 12/13/17 12/14/17 18:59 06:59 Intake Total 152.0 Output Total 900 Balance -748.0 - Medications Medications: Current Medications Acetaminophen (Tylenol 325mg Tab) 650 mg PO Q6 PRN PRN Reason: Pain, MILD(1-3) Amlodipine Besylate (Norvasc) 10 mg PO DAILY [facility] Last Admin: 12/13/17 10:22 Dose: 10 mg Apixaban (Eliquis) 10 mg PO BID [facility] Last Admin: 12/13/17 18:45 Dose: Not Given Aspirin (Aspirin) 325 mg PO DAILY [facility] Last Admin: 12/13/17 10:25 Dose: 325 mg Gabapentin (Neurontin) 300 mg PO HS [facility] Last Admin: 12/13/17 22:43 Dose: 300 mg Gabapentin (Neurontin) 100 mg PO TID [facility] Last Admin: 12/13/17 18:04 Dose: Not Given Heparin Sodium/Sodium Chloride (Heparin 77234 Units/250ml 1/2 Normal Saline) 25 ,000 units in 250 mls @ 13.064 mls/hr IV .Q19H9M PRN; Protocol; 18 UNITS/KG/HR PRN Reason: ADJUST RATE PER PROTOCOL Last Admin: 12/13/17 06:55 Dose: 18 units/kg/hr, 13.064 mls/hr Losartan Potassium (Cozaar) 100 mg PO DAILY [facility] Last Admin: 12/13/17 10:22 Dose: 100 mg Oxycodone/Acetaminophen (Percocet 5/325 Mg Tab) 1 tab PO Q4H PRN PRN Reason: Pain, moderate (4-7) Stop: 12/15/17 12:39 Last Admin: 12/13/17 22:52 Dose: 1 tab - Labs Labs: 12/13/17 05:58 12/13/17 05:58 PT 12.4 SECONDS (9.7-12.2) H 12/12/17 09:29 INR 1.1 12/12/17 09:29 APTT 77 SECONDS (21-34) H D 12/13/17 02:07 - Constitutional Appears: No Acute Distress - Head Exam Head Exam: ATRAUMATIC, NORMAL INSPECTION, NORMOCEPHALIC - Eye Exam Eye Exam: EOMI, Normal appearance, PERRL Pupil Exam: NORMAL ACCOMODATION, PERRL - Respiratory Exam Respiratory Exam: Clear to Ausculation Bilateral, NORMAL BREATHING PATTERN - Cardiovascular Exam Cardiovascular Exam: REGULAR RHYTHM, +S1, +S2. absent: Murmur - GI/Abdominal Exam GI & Abdominal Exam: Soft, Normal Bowel Sounds. absent: Tenderness Assessment and Plan (1) Deep venous thrombosis of lower extremity Status: Acute (2) DVT (deep venous thrombosis) Status: Acute (3) Foot ulcer Status: Acute (4) Gangrene of left foot Status: Acute (5) HTN (hypertension) Status: Acute
[2017-12-14] MEDS: Heparin25000 units/250ml 1/2NS 25,000 UNITS/250 ML BAG IV PRN (06:10)
[2017-12-14 06:25] LABS: BASO # 0.1 K/uL (0.0-0.2); BASO % 0.6 % (0.0-2.0); EOS # 0.2 K/uL (0.0-0.7); EOS % 1.4 % (0.0-4.0); HEMOGLOBIN 13.9 g/dL (11.0-16.0); LYMPH # 0.7 K/uL (1.0-4.3); LYMPH % 6.3 % (20.0-40.0); MEAN CELL VOLUME 101.7 fL (81.0-99.0); MEAN CORPUSCULAR HEMOGLOBIN 34.5 pg (27.0-31.0); MEAN CORPUSCULAR HGB CONC 33.9 g/dL (33.0-37.0); MEAN PLATELET VOLUME 9.2 fL (7.2-11.7); MONO # 0.6 K/uL (0.0-0.8); MONO % 5.6 % (0.0-10.0); NEUT # 9.8 K/uL (1.8-7.0); NEUT % 86.1 % (50.0-75.0); PLATELET COUNT 380 K/uL (130-400); RBC 4.03 Mil/uL (3.80-5.20); WHITE BLOOD COUNT 11.4 K/uL (4.8-10.8)
[2017-12-14 06:38] LABS: ALBUMIN 3.1 g/dL (3.5-5.0); ALT/SGPT 18 U/L (9-52); AST/SGOT 72 U/L (14-36); BLOOD UREA NITROGEN 29 mg/dL (7-17); CALCIUM 9.4 mg/dl (8.6-10.4); GFR AFRICAN-AMERICAN > 60; GFR NON-AFRICAN AMERICAN > 60
--- NOTE | 2017-12-14 07:08 | CP.CCUPN ---
CCU Subjective - Physician Review Subjective (Free Text): 12/14/17 07:08 Patient seen and examined at bedside. CCU Objective - Vital Signs / Intake & Output Intake and Output (Last 8hrs): Intake & Output 12/13/17 12/14/17 12/14/17 22:59 06:59 14:59 Intake Total 314.5 358.0 Output Total 1600 1270 Balance -1285.5 -912.0 Weight 74.5 kg Intake: IV 250 Intake, IV Amount 114.5 108.0 LEFT WRIST 10 Left Wrist 10 Right Hand 94.5 108.0 Oral 200 0 Output: Urine 1600 1270 Urethral (Vizcaino) 1600 1270 - Medications Active Medications: Active Medications Generic Name Dose Route Start Last Admin Trade Name Freq PRN Reason Stop Dose Admin Acetaminophen 650 mg 12/12/17 12:38 Tylenol 325mg Tab PO Q6 PRN Pain, MILD(1-3) Amlodipine Besylate 10 mg 12/13/17 10:00 12/13/17 10:22 Norvasc PO 10 mg DAILY [facility] Administration Apixaban 10 mg 12/13/17 18:00 12/13/17 18:45 Eliquis PO Not Given BID [facility] Aspirin 325 mg 12/13/17 10:00 12/13/17 10:25 Aspirin PO 325 mg DAILY [facility] Administration Gabapentin 300 mg 12/12/17 22:00 12/13/17 22:43 Neurontin PO 300 mg HS [facility] Administration Gabapentin 100 mg 12/12/17 14:00 12/13/17 18:04 Neurontin PO Not Given TID [facility] Heparin Sodium/Sodium Chloride 25,000 units in 250 mls @ 13.064 mls/hr 13:30 12/14/17 06:10 Heparin 92895 Units/250ml 1/2 Normal Saline IV 18 units/kg/hr .Q19H9M PRN 13.064 mls/hr ADJUST RATE PER PROTOCOL Administration Protocol 18 UNITS/KG/HR Losartan Potassium 100 mg 12/13/17 10:00 12/13/17 10:22 Cozaar PO 100 mg DAILY [facility] Administration Oxycodone/Acetaminophen 1 tab 12/12/17 12:38 12/13/17 22:52 Percocet 5/325 Mg Tab PO 12/15/17 12:39 1 tab Q4H PRN Administration Pain, moderate (4-7) - Patient Studies Lab Studies: Lab Studies 12/14/17 12/14/17 12/14/17 Range/Units 06:12 06:12 06:10 WBC 11.4 H (4.8-10.8) K/uL RBC 4.03 (3.80-5.20) Mil/uL Hgb 13.9 (11.0-16.0) g/dL Hct 41.0 (34.0-47.0) % MCV 101.7 H (81.0-99.0) fL MCH 34.5 H (27.0-31.0) pg MCHC 33.9 (33.0-37.0) g/dL RDW 21.0 H (11.5-14.5) % Plt Count 380 (130-400) K/uL MPV 9.2 (7.2-11.7) fL Neut % (Auto) 86.1 H (50.0-75.0) % Lymph % (Auto) 6.3 L (20.0-40.0) % Vernon % (Auto) 5.6 (0.0-10.0) % Eos % (Auto) 1.4 (0.0-4.0) % Baso % (Auto) 0.6 (0.0-2.0) % Neut # (Auto) 9.8 H (1.8-7.0) K/uL Lymph # (Auto) 0.7 L (1.0-4.3) K/uL Vernon # (Auto) 0.6 (0.0-0.8) K/uL Eos # (Auto) 0.2 (0.0-0.7) K/uL Baso # (Auto) 0.1 (0.0-0.2) K/uL Neutrophils % (Manual) (50-75) % Lymphocytes % (Manual) (20-40) % Monocytes % (Manual) (0-10) % Platelet Estimate (NORMAL) Anisocytosis (manual) Macrocytosis (manual) APTT 52 H (21-34) SECONDS Sodium 141 (132-148) mmol/L Potassium 4.2 (3.6-5.2) mmol/L Chloride 105 (98-107) mmol/L Carbon Dioxide 23 (22-30) mmol/L Anion Gap 18 (10-20) BUN 29 H (7-17) mg/dL Creatinine 0.9 (0.7-1.2) mg/dL Est GFR ( Amer) > 60 Est GFR (Non-Af Amer) > 60 Random Glucose 109 H (65-105) mg/dL Calcium 9.4 (8.6-10.4) mg/dl Phosphorus 5.5 H (2.5-4.5) mg/dL Magnesium 1.8 (1.6-2.3) mg/dL Total Bilirubin 2.2 H (0.2-1.3) mg/dL AST 72 H D (14-36) U/L ALT 18 (9-52) U/L Alkaline Phosphatase 50 (38-126) U/L Total Protein 6.2 L (6.3-8.3) g/dL Albumin 3.1 L (3.5-5.0) g/dL Globulin 3.1 (2.2-3.9) gm/dL Albumin/Globulin Ratio 1.0 (1.0-2.1) 12/14/17 12/13/17 Range/Units 00:37 05:58 WBC (4.8-10.8) K/uL RBC (3.80-5.20) Mil/uL Hgb (11.0-16.0) g/dL Hct (34.0-47.0) % MCV (81.0-99.0) fL MCH (27.0-31.0) pg MCHC (33.0-37.0) g/dL RDW (11.5-14.5) % Plt Count (130-400) K/uL MPV (7.2-11.7) fL Neut % (Auto) (50.0-75.0) % Lymph % (Auto) (20.0-40.0) % Vernon % (Auto) (0.0-10.0) % Eos % (Auto) (0.0-4.0) % Baso % (Auto) (0.0-2.0) % Neut # (Auto) (1.8-7.0) K/uL Lymph # (Auto) (1.0-4.3) K/uL Vernon # (Auto) (0.0-0.8) K/uL Eos # (Auto) (0.0-0.7) K/uL Baso # (Auto) (0.0-0.2) K/uL Neutrophils % (Manual) 85 H (50-75) % Lymphocytes % (Manual) 8 L (20-40) % Monocytes % (Manual) 7 (0-10) % Platelet Estimate Normal (NORMAL) Anisocytosis (manual) Slight Macrocytosis (manual) Slight APTT 56 H D (21-34) SECONDS Sodium (132-148) mmol/L Potassium (3.6-5.2) mmol/L Chloride (98-107) mmol/L Carbon Dioxide (22-30) mmol/L Anion Gap (10-20) BUN (7-17) mg/dL Creatinine (0.7-1.2) mg/dL Est GFR ( Amer) Est GFR (Non-Af Amer) Random Glucose (65-105) mg/dL Calcium (8.6-10.4) mg/dl Phosphorus (2.5-4.5) mg/dL Magnesium (1.6-2.3) mg/dL Total Bilirubin (0.2-1.3) mg/dL AST (14-36) U/L ALT (9-52) U/L Alkaline Phosphatase (38-126) U/L Total Protein (6.3-8.3) g/dL Albumin (3.5-5.0) g/dL Globulin (2.2-3.9) gm/dL Albumin/Globulin Ratio (1.0-2.1) Laboratory Results - last 24 hr 12/13/17 12/14/17 12/14/17 05:58 00:37 06:10 WBC RBC Hgb Hct MCV MCH MCHC RDW Plt Count MPV Neut % (Auto) Lymph % (Auto) Vernon % (Auto) Eos % (Auto) Baso % (Auto) Neut # (Auto) Lymph # (Auto) Vernon # (Auto) Eos # (Auto) Baso # (Auto) Neutrophils % (Manual) 85 H Lymphocytes % (Manual) 8 L Monocytes % (Manual) 7 Platelet Estimate Normal Anisocytosis (manual) Slight Macrocytosis (manual) Slight APTT 56 H D Sodium 141 Potassium 4.2 Chloride 105 Carbon Dioxide 23 Anion Gap 18 BUN 29 H Creatinine 0.9 Est GFR ( Amer) > 60 Est GFR (Non-Af Amer) > 60 Random Glucose 109 H Calcium 9.4 Phosphorus 5.5 H Magnesium 1.8 Total Bilirubin 2.2 H AST 72 H D ALT 18 Alkaline Phosphatase 50 Total Protein 6.2 L Albumin 3.1 L Globulin 3.1 Albumin/Globulin Ratio 1.0 12/14/17 12/14/17 06:12 06:12 WBC 11.4 H RBC 4.03 Hgb 13.9 Hct 41.0 MCV 101.7 H MCH 34.5 H MCHC 33.9 RDW 21.0 H Plt Count 380 MPV 9.2 Neut % (Auto) 86.1 H Lymph % (Auto) 6.3 L Vernon % (Auto) 5.6 Eos % (Auto) 1.4 Baso % (Auto) 0.6 Neut # (Auto) 9.8 H Lymph # (Auto) 0.7 L Vernon # (Auto) 0.6 Eos # (Auto) 0.2 Baso # (Auto) 0.1 Neutrophils % (Manual) Lymphocytes % (Manual) Monocytes % (Manual) Platelet Estimate Anisocytosis (manual) Macrocytosis (manual) APTT 52 H Sodium Potassium Chloride Carbon Dioxide Anion Gap BUN Creatinine Est GFR ( Amer) Est GFR (Non-Af Amer) Random Glucose Calcium Phosphorus Magnesium Total Bilirubin AST ALT Alkaline Phosphatase Total Protein Albumin Globulin Albumin/Globulin Ratio Critical Care Progress Note - Nutrition Nutrition: Nutrition Category Date Time Status Regular Diet [DIET] Diets 12/13/17 Dinner Active
[2017-12-14 08:49] LABS: ANISOCYTOSIS MODERATE; BANDS 1 % (0-2); BASOPHIL 1 % (0-2); LARGE PLATELETS PRESENT; LYMPHOCYTE 7 % (20-40); MONOCYTE 3 % (0-10); NEUTROPHIL 88 % (50-75); PLATELET ESTIMATE NORMAL (NORMAL); TOTAL CELLS COUNTED 100
[2017-12-14] MEDS ORDERED: Sodium Chloride 0.9% 1,000 ML IV SCH (10:30)
--- NOTE | 2017-12-14 11:24 | CP.PCM.PN ---
Subjective - Date & Time of Evaluation Date of Evaluation: 12/14/17 Time of Evaluation: 07:15 - Subjective Subjective: Vasc Surgery: Dr Pierre Pt S&E. POD#1 s/p mechanical thrombolysis and IVC filter placement. Pt has no current complaints. Denies pain. Denies sob. Dressings c/d/i Objective - Vital Signs/Intake and Output Vital Signs (last 24 hours): Temp Pulse Resp BP Pulse Ox 98.6 F 71 23 132/59 L 98 12/14/17 04:00 12/14/17 10:52 12/14/17 10:52 12/14/17 10:52 12/14/17 10:52 Intake and Output: 12/14/17 12/14/17 06:59 18:59 Intake Total 612.0 442.5 Output Total 2020 145 Balance -1408.0 297.5 - Medications Medications: Current Medications Acetaminophen (Tylenol 325mg Tab) 650 mg PO Q6 PRN PRN Reason: Pain, MILD(1-3) Amlodipine Besylate (Norvasc) 10 mg PO DAILY [facility] Last Admin: 12/14/17 10:54 Dose: 10 mg Apixaban (Eliquis) 10 mg PO BID [facility] Last Admin: 12/14/17 10:45 Dose: 10 mg Famotidine (Pepcid) 20 mg PO BID [facility] Last Admin: 12/14/17 10:44 Dose: 20 mg Gabapentin (Neurontin) 300 mg PO HS [facility] Last Admin: 12/13/17 22:43 Dose: 300 mg Gabapentin (Neurontin) 100 mg PO TID [facility] Last Admin: 12/14/17 10:45 Dose: 100 mg Heparin Sodium/Sodium Chloride (Heparin 50869 Units/250ml 1/2 Normal Saline) 25 ,000 units in 250 mls @ 13.064 mls/hr IV .Q19H9M PRN; Protocol; 18 UNITS/KG/HR PRN Reason: ADJUST RATE PER PROTOCOL Last Admin: 12/14/17 06:10 Dose: 18 units/kg/hr, 13.064 mls/hr Sodium Chloride (Sodium Chloride 0.9%) 1,000 mls @ 75 mls/hr IV .[id number] [facility] Stop: 12/14/17 18:31 Last Admin: 12/14/17 10:45 Dose: 75 mls/hr Losartan Potassium (Cozaar) 100 mg PO DAILY [facility] Last Admin: 12/14/17 10:55 Dose: 100 mg Oxycodone/Acetaminophen (Percocet 5/325 Mg Tab) 1 tab PO Q4H PRN PRN Reason: Pain, moderate (4-7) Stop: 12/15/17 12:39 Last Admin: 12/13/17 22:52 Dose: 1 tab - Labs Labs: 12/14/17 06:12 12/14/17 06:10 PT 12.4 SECONDS (9.7-12.2) H 12/12/17 09:29 INR 1.1 12/12/17 09:29 APTT 52 SECONDS (21-34) H 12/14/17 06:12 - Constitutional Appears: Non-toxic, No Acute Distress - Head Exam Head Exam: NORMAL INSPECTION - ENT Exam ENT Exam: Mucous Membranes Moist - Respiratory Exam Respiratory Exam: absent: Accessory Muscle Use, Respiratory Distress - Cardiovascular Exam Cardiovascular Exam: absent: Tachycardia - GI/Abdominal Exam GI & Abdominal Exam: Soft. absent: Distended, Tenderness - Extremities Exam Additional comments: groin puncture site c/d/i - Neurological Exam Neurological Exam: Alert, Awake, Oriented x3 - Psychiatric Exam Psychiatric exam: Normal Affect, Normal Mood - Skin Skin Exam: Normal Color, Warm Assessment and Plan - Assessment and Plan (Free Text) Assessment: 72F with DVT s/p mechanical thrombolysis and IVC filter placement Plan: cont current care will obtain CTA w/ PE protocol d/w Dr Gabby Martins, PGY3
[2017-12-14] MEDS ORDERED: Iodixanol 320 MG/ML 100 ML BOTTLE IV ONE (11:42)
--- NOTE | 2017-12-14 13:40 | VAS ---
DATE: 12/13/2017 PREOPERATIVE DIAGNOSIS: Status post left below-knee amputation iliofemoral, vena cava thrombosis. PROCEDURE CARRIED OUT: Placement of Option Elite filter via right popliteal vein with venogram and micropuncture and secondly venogram with mechanical thrombolysis using Zelante AngioJet device of the left femoral, iliac, and vena cava. SURGEON: Juma Pierre Jr., MD RED HAT ENGINEER: None. ANESTHESIOLOGIST: Dr. Mayfield. ANESTHESIA: Local sedation. INDICATIONS: A 72-year-old woman who underwent a left below-knee amputation for unreconstructable disease. She was treated with . Previously, she was known to have a left femoral thrombosis. However, the expanse of swelling and iliac thrombosis just occurred recently. OPERATIVE FINDINGS: Initially after we passed, we initially tried to puncture the patient in face down position and tried to puncture the left popliteal vein but due to the previous sclerosis, we were unable to advance the wire or do this. We then flipped the patient back over on her back, punctured the left groin, and using micropuncture technique and ultrasound guidance, I then advanced the guidewire centrally. Eventually, we exchanged this for Mcconnell wire, we then carried out a venogram after placement of a catheter sheath in the groin, and this showed extensive thrombosis involving the iliac vein and common femoral vein and up to the vena cava. Initially, we made a pass without giving TPA which resolved a great deal of this. However, subsequently, we instilled the TPA, waited the appropriate amount of time, device to suction out as much clot as possible. Final results were much improved compared to the preoperative results and had excellent flow. We then terminated the procedure and applied pressure to groin. There were no open wounds. No stent was placed. OPERATIONS CARRIED OUT: Placement of Option Elite filter via right popliteal vein, venogram, using ultrasound guidance and secondly mechanical thrombolysis of the common femoral, external iliac, common iliac and vena cava using a Zelante AngioJet device. Juma Pierre Jr., MD cc: Fredy Cardenas MD
--- NOTE | 2017-12-14 14:28 | CT ---
PROCEDURE: CT Chest with contrast (Pulmonary Angiogram) HISTORY: r/o PE COMPARISON: None available. TECHNIQUE: Axial computed tomography images were obtained of the chest in the pulmonary arterial phase of enhancement. Coronal and sagittal reformatted images were created and reviewed. Intravenous contrast dose: 100 cc Visipaque 320. Mean Hounsfield unit values in the main pulmonary artery: 243.35 Radiation dose: Total exam DLP = for a 4.28 mGy-cm. This CT exam was performed using one or more of the following dose reduction techniques: Automated exposure control, adjustment of the mA and/or kV according to patient size, and/or use of iterative reconstruction technique. FINDINGS: PULMONARY ARTERIES: Unremarkable. No pulmonary embolism. AORTA: No acute findings. No thoracic aortic aneurysm. LUNGS: Dependent atelectasis/ consolidative change basilar segment right lower lobe. Focus of rounded atelectasis/mass superior segment right lower lobe. PLEURAL SPACES: Unremarkable. No effusion or pneuomothorax. HEART: Unremarkable. No cardiomegaly. No significant pericardial effusion. LYMPH NODES: No lymphadenopathy. BONES, CHEST WALL: Unremarkable. No fracture or destructive lesion OTHER FINDINGS: Hepatic steatosis without visualized focal hepatic abnormality IMPRESSION: Unremarkable CT pulmonary angiogram. No pulmonary embolus. Atelectasis/infiltrate right lower lobe.
[2017-12-14] MEDS: Oxycodone/Acetaminophen 5/325 mg Tab PO PRN (19:35)
[2017-12-14 22:30] VITALS: RESP 20
--- NOTE | 2017-12-14 23:38 | CP.PCM.PN ---
Subjective - Date & Time of Evaluation Date of Evaluation: 12/14/17 Time of Evaluation: 08:00 - Subjective Subjective: Chief Complaint: Substance Abuse Objective - Vital Signs/Intake and Output Vital Signs (last 24 hours): Temp Pulse Resp BP Pulse Ox 98.3 F 69 20 111/60 95 12/14/17 22:00 12/14/17 22:00 12/14/17 22:00 12/14/17 22:00 12/14/17 22:00 Intake and Output: 12/14/17 12/15/17 18:59 06:59 Intake Total 1639.0 303.5 Output Total 195 200 Balance 1444.0 103.5 - Medications Medications: Current Medications Acetaminophen (Tylenol 325mg Tab) 650 mg PO Q6 PRN PRN Reason: Pain, MILD(1-3) Amlodipine Besylate (Norvasc) 10 mg PO DAILY [facility] Last Admin: 12/14/17 10:54 Dose: 10 mg Apixaban (Eliquis) 10 mg PO BID [facility] Last Admin: 12/14/17 18:02 Dose: 10 mg Famotidine (Pepcid) 20 mg PO BID [facility] Last Admin: 12/14/17 18:02 Dose: 20 mg Gabapentin (Neurontin) 300 mg PO HS [facility] Last Admin: 12/14/17 21:50 Dose: 300 mg Gabapentin (Neurontin) 100 mg PO TID [facility] Last Admin: 12/14/17 18:02 Dose: 100 mg Heparin Sodium/Sodium Chloride (Heparin 83163 Units/250ml 1/2 Normal Saline) 25 ,000 units in 250 mls @ 13.064 mls/hr IV .Q19H9M PRN; Protocol; 18 UNITS/KG/HR PRN Reason: ADJUST RATE PER PROTOCOL Last Admin: 12/14/17 06:10 Dose: 18 units/kg/hr, 13.064 mls/hr Losartan Potassium (Cozaar) 100 mg PO DAILY [facility] Last Admin: 12/14/17 10:55 Dose: 100 mg Oxycodone/Acetaminophen (Percocet 5/325 Mg Tab) 1 tab PO Q4H PRN PRN Reason: Pain, moderate (4-7) Stop: 12/15/17 12:39 Last Admin: 12/14/17 19:35 Dose: 1 tab - Labs Labs: 12/14/17 06:12 12/14/17 06:10 PT 12.4 SECONDS (9.7-12.2) H 12/12/17 09:29 INR 1.1 12/12/17 09:29 APTT 52 SECONDS (21-34) H 12/14/17 06:12 Assessment and Plan (1) Deep venous thrombosis of lower extremity Status: Acute (2) DVT (deep venous thrombosis) Status: Acute (3) Foot ulcer Status: Acute (4) Gangrene of left foot Status: Acute (5) HTN (hypertension) Status: Acute
[2017-12-15 07:46] LABS: BASO # 0.1 K/uL (0.0-0.2); BASO % 0.6 % (0.0-2.0); EOS # 0.5 K/uL (0.0-0.7); EOS % 6.3 % (0.0-4.0); HEMOGLOBIN 13.3 g/dL (11.0-16.0); LYMPH # 0.7 K/uL (1.0-4.3); LYMPH % 8.6 % (20.0-40.0); MEAN CELL VOLUME 101.7 fL (81.0-99.0); MEAN CORPUSCULAR HEMOGLOBIN 34.5 pg (27.0-31.0); MEAN CORPUSCULAR HGB CONC 33.9 g/dL (33.0-37.0); MONO # 0.6 K/uL (0.0-0.8); MONO % 7.2 % (0.0-10.0); NEUT # 6.5 K/uL (1.8-7.0); NEUT % 77.3 % (50.0-75.0); PLATELET COUNT 393 K/uL (130-400); RBC 3.86 Mil/uL (3.80-5.20); RED CELL DISTRIBUTION WIDTH 21.5 % (11.5-14.5); WHITE BLOOD COUNT 8.4 K/uL (4.8-10.8)
--- NOTE | 2017-12-15 09:53 | CP.PCM.PN ---
Subjective - Date & Time of Evaluation Date of Evaluation: 12/15/17 Time of Evaluation: 07:10 - Subjective Subjective: Vascular Surgery Progress note. Dr. Pierre Pt seen and examined at bedside. No acute events overnight. Left lower extremity swelling improved markedly. Denies F/C. No CP/SOB. No new complaints. Wants to be discharged back to rehab today. Objective - Vital Signs/Intake and Output Vital Signs (last 24 hours): Temp Pulse Resp BP Pulse Ox 97.4 F L 67 20 143/68 97 12/15/17 08:23 12/15/17 08:23 12/15/17 08:23 12/15/17 08:23 12/15/17 08:23 Intake and Output: 12/15/17 12/15/17 06:59 18:59 Intake Total 303.5 Output Total 200 Balance 103.5 - Medications Medications: Current Medications Acetaminophen (Tylenol 325mg Tab) 650 mg PO Q6 PRN PRN Reason: Pain, MILD(1-3) Amlodipine Besylate (Norvasc) 10 mg PO DAILY [facility] Last Admin: 12/14/17 10:54 Dose: 10 mg Apixaban (Eliquis) 10 mg PO BID [facility] Last Admin: 12/14/17 18:02 Dose: 10 mg Famotidine (Pepcid) 20 mg PO BID [facility] Last Admin: 12/14/17 18:02 Dose: 20 mg Gabapentin (Neurontin) 300 mg PO HS [facility] Last Admin: 12/14/17 21:50 Dose: 300 mg Gabapentin (Neurontin) 100 mg PO TID [facility] Last Admin: 12/14/17 18:02 Dose: 100 mg Losartan Potassium (Cozaar) 100 mg PO DAILY [facility] Last Admin: 12/14/17 10:55 Dose: 100 mg Oxycodone/Acetaminophen (Percocet 5/325 Mg Tab) 1 tab PO Q4H PRN PRN Reason: Pain, moderate (4-7) Stop: 12/15/17 12:39 Last Admin: 12/14/17 19:35 Dose: 1 tab - Labs Labs: 12/15/17 07:30 12/14/17 06:10 PT 12.4 SECONDS (9.7-12.2) H 12/12/17 09:29 INR 1.1 12/12/17 09:29 APTT 34 SECONDS (21-34) D 12/15/17 07:30 - Constitutional Appears: Non-toxic, No Acute Distress - Head Exam Head Exam: ATRAUMATIC, NORMAL INSPECTION, NORMOCEPHALIC - Eye Exam Eye Exam: EOMI, Normal appearance - ENT Exam ENT Exam: Mucous Membranes Moist - Respiratory Exam Respiratory Exam: NORMAL BREATHING PATTERN. absent: Accessory Muscle Use, Respiratory Distress - Cardiovascular Exam Cardiovascular Exam: absent: JVD - GI/Abdominal Exam GI & Abdominal Exam: Soft. absent: Distended, Guarding, Rigid, Tenderness, Rebound - Extremities Exam Additional comments: left BKA stump swelling and erythema markedly improved. Puncture sites dressings clean, dry and intact. - Neurological Exam Neurological Exam: Alert, Awake, Oriented x3 - Psychiatric Exam Psychiatric exam: Normal Affect, Normal Mood - Skin Skin Exam: Dry, Intact, Normal Color, Warm Assessment and Plan - Assessment and Plan (Free Text) Assessment: 72yo F with extensive LLE DVT s/p mechanical thrombolysis and IVC filter placemetn. POD 2 Plan: - On Eliquis - Cleared for d/c to rehab from surgery standpoint Further recs as per Dr. Gabby Verdin PGY1 surgery pager: [phone]
[2017-12-15] MEDS: Oxycodone/Acetaminophen 5/325 mg Tab PO PRN (10:14)
[2017-12-15 10:15] LABS: ANISOCYTOSIS MODERATE; EOSINOPHIL 3 % (0-4); LARGE PLATELETS PRESENT; LYMPHOCYTE 7 % (20-40); MONOCYTE 6 % (0-10); NEUTROPHIL 83 % (50-75); PLATELET ESTIMATE NORMAL (NORMAL); REACTIVE LYMPHOCYTES 1 % (0-0); TOTAL CELLS COUNTED 100
[2017-12-15 14:32] LABS: ALBUMIN 2.9 g/dL (3.5-5.0); BLOOD UREA NITROGEN 27 mg/dL (7-17); CALCIUM 9.1 mg/dl (8.6-10.4); GFR AFRICAN-AMERICAN > 60; GFR NON-AFRICAN AMERICAN 54
[2017-12-15 14:33] LABS: ALB/GLOB RATIO 0.9 (1.0-2.1); ALT/SGPT 23 U/L (9-52); AST/SGOT 39 U/L (14-36)
--- NOTE | 2017-12-15 15:05 | CP.PCM.PN ---
Subjective - Date & Time of Evaluation Date of Evaluation: 12/15/17 Time of Evaluation: 15:05 - Subjective Subjective: PATIENT WAS ADMITTED FOR DVT; AAOX3 ON 2 L NASAL CANNULA DENIES ANY CHEST PAIN, SOB NO SIGN OF DISTRESS NOTED Objective - Vital Signs/Intake and Output Vital Signs (last 24 hours): Temp Pulse Resp BP Pulse Ox 97.4 F L 78 20 124/62 97 12/15/17 08:23 12/15/17 10:10 12/15/17 08:23 12/15/17 10:10 12/15/17 08:23 Intake and Output: 12/15/17 12/15/17 06:59 18:59 Intake Total 303.5 520 Output Total 200 Balance 103.5 520 - Medications Medications: Current Medications Acetaminophen (Tylenol 325mg Tab) 650 mg PO Q6 PRN PRN Reason: Pain, MILD(1-3) Amlodipine Besylate (Norvasc) 10 mg PO DAILY [facility] Last Admin: 12/15/17 10:11 Dose: 10 mg Apixaban (Eliquis) 10 mg PO BID [facility] Last Admin: 12/15/17 10:11 Dose: 10 mg Famotidine (Pepcid) 20 mg PO BID [facility] Last Admin: 12/15/17 10:11 Dose: 20 mg Gabapentin (Neurontin) 300 mg PO HS [facility] Last Admin: 12/14/17 21:50 Dose: 300 mg Gabapentin (Neurontin) 100 mg PO TID [facility] Last Admin: 12/15/17 13:48 Dose: 100 mg Losartan Potassium (Cozaar) 100 mg PO DAILY [facility] Last Admin: 12/15/17 10:11 Dose: 100 mg - Labs Labs: 12/15/17 07:30 12/15/17 14:03 PT 12.4 SECONDS (9.7-12.2) H 12/12/17 09:29 INR 1.1 12/12/17 09:29 APTT 34 SECONDS (21-34) D 12/15/17 07:30 Assessment and Plan - Assessment and Plan (Free Text) Assessment: PATIENT SEEN AND EXAMINED AT THE BEDSIDE LUNG SOUND CLEAR REN IVC FILTER PLACE AND NO SIGN OF BLEEDING NO SIMI/ DRESSING DRY AND INTACT DISCUSS WITH DR PAK WHO CLEAR PATIENT FOR DC DISCUSS WITH DR DELACRUZ WHO AGREE WITH THE DC PLACE UNDER THE SERVICE OF DR DELACRUZ AT [facility] [place] ---CALL DR DELACRUZ FOR ADMITTING ORDER FOLLOW UP WITH DR PAK IN 1 WEEK AT HIS OFFICE ---CALL FOR APPOINTMENT CONTINUE HOME MEDICATION NEW PRESCRIPTION GIVEN ELIQUIS 10 MG BY MOUTH TWICE A DAY FOR ON WEEK THEN ELIQUIS 5 MG BY MOUTH TWICE A DAY AFTER THE FIRST WEEK ACTIVITY TOLERATED AD PER FACILITY PROTOCOL CALL DR DELACRUZ FOR FURTHER ORDERS DISCUSS WITH PATIENT WHO AGREE AND VERBALIZED UNDERSTANDING
[2017-12-15 15:48] VITALS: BP 110/59; PULSE 80; TEMP 98.1; O2SAT 96
--- NOTE | 2017-12-15 23:45 | CP.PCM.DIS ---
Provider - Provider Date of Admission: 12/12/17 11:03 Attending physician: Fredy Cardenas MD Diagnosis - Discharge Diagnosis (1) Deep venous thrombosis of lower extremity Status: Acute (2) DVT (deep venous thrombosis) Status: Acute (3) Foot ulcer Status: Acute (4) Gangrene of left foot Status: Acute (5) HTN (hypertension) Status: Acute Hospital Course - Lab Results Lab Results: Micro Results 12/13/17 17:20 Naris MRSA Culture (Admit) - Final MRSA NOT DETECTED Most Recent Lab Values WBC 8.4 K/uL (4.8-10.8) 12/15/17 07:30 RBC 3.86 Mil/uL (3.80-5.20) 12/15/17 07:30 Hgb 13.3 g/dL (11.0-16.0) 12/15/17 07:30 Hct 39.2 % (34.0-47.0) 12/15/17 07:30 MCV 101.7 fL (81.0-99.0) H 12/15/17 07:30 MCH 34.5 pg (27.0-31.0) H 12/15/17 07:30 MCHC 33.9 g/dL (33.0-37.0) 12/15/17 07:30 RDW 21.5 % (11.5-14.5) H 12/15/17 07:30 Plt Count 393 K/uL (130-400) 12/15/17 07:30 MPV 9.0 fL (7.2-11.7) 12/15/17 07:30 Neut % (Auto) 77.3 % (50.0-75.0) H 12/15/17 07:30 Lymph % (Auto) 8.6 % (20.0-40.0) L 12/15/17 07:30 [place] % (Auto) 7.2 % (0.0-10.0) 12/15/17 07:30 Eos % (Auto) 6.3 % (0.0-4.0) H 12/15/17 07:30 Baso % (Auto) 0.6 % (0.0-2.0) 12/15/17 07:30 Neut # (Auto) 6.5 K/uL (1.8-7.0) 12/15/17 07:30 Lymph # (Auto) 0.7 K/uL (1.0-4.3) L 12/15/17 07:30 [place] # (Auto) 0.6 K/uL (0.0-0.8) 12/15/17 07:30 Eos # (Auto) 0.5 K/uL (0.0-0.7) 12/15/17 07:30 Baso # (Auto) 0.1 K/uL (0.0-0.2) 12/15/17 07:30 Neutrophils % (Manual) 83 % (50-75) H 12/15/17 07:30 Band Neutrophils % 1 % (0-2) 12/14/17 06:12 Lymphocytes % (Manual) 7 % (20-40) L 12/15/17 07:30 Reactive Lymphs % 1 % (0-0) H 12/15/17 07:30 Monocytes % (Manual) 6 % (0-10) 12/15/17 07:30 Eosinophils % (Manual) 3 % (0-4) 12/15/17 07:30 Basophils % (Manual) 1 % (0-2) 12/14/17 06:12 Platelet Estimate Normal (NORMAL) 12/15/17 07:30 Large Platelets Present 12/15/17 07:30 Anisocytosis (manual) Moderate 12/15/17 07:30 Macrocytosis (manual) Moderate 12/15/17 07:30 PT 12.4 SECONDS (9.7-12.2) H 12/12/17 09:29 INR 1.1 12/12/17 09:29 APTT 34 SECONDS (21-34) D 12/15/17 07:30 Sodium 141 mmol/L (132-148) 12/15/17 14:03 Potassium 3.6 mmol/L (3.6-5.2) 12/15/17 14:03 Chloride 103 mmol/L (98-107) 12/15/17 14:03 Carbon Dioxide 28 mmol/L (22-30) 12/15/17 14:03 Anion Gap 13 (10-20) 12/15/17 14:03 BUN 27 mg/dL (7-17) H 12/15/17 14:03 Creatinine 1.0 mg/dL (0.7-1.2) 12/15/17 14:03 Est GFR ( Amer) > 60 12/15/17 14:03 Est GFR (Non-Af Amer) 54 12/15/17 14:03 Random Glucose 76 mg/dL (65-105) 12/15/17 14:03 Calcium 9.1 mg/dl (8.6-10.4) 12/15/17 14:03 Phosphorus 3.7 mg/dL (2.5-4.5) 12/15/17 14:03 Magnesium 1.7 mg/dL (1.6-2.3) 12/15/17 14:03 Total Bilirubin 0.6 mg/dL (0.2-1.3) 12/15/17 14:03 AST 39 U/L (14-36) H D 12/15/17 14:03 ALT 23 U/L (9-52) 12/15/17 14:03 Alkaline Phosphatase 52 U/L (38-126) 12/15/17 14:03 Total Protein 6.0 g/dL (6.3-8.3) L 12/15/17 14:03 Albumin 2.9 g/dL (3.5-5.0) L 12/15/17 14:03 Globulin 3.1 gm/dL (2.2-3.9) 12/15/17 14:03 Albumin/Globulin Ratio 0.9 (1.0-2.1) L 12/15/17 14:03 Discharge Exam - Head Exam Head Exam: ATRAUMATIC, NORMAL INSPECTION, NORMOCEPHALIC Discharge Plan - Discharge Medications Prescriptions: Apixaban [Eliquis] 5 mg PO BID #60 tab - Follow Up Plan Condition: FAIR Disposition: HOME/ ROUTINE Instructions: Deep Vein Thrombosis (Blood Clots in the Legs) (DC), Apixaban Additional Instructions: PLACE UNDER [place]ICE OF DR [place] [facility] [place] DR CARDENAS FOR ADMITTING ORDER FOLLOW UP WITH DR PAK IN 1 WEEK AT HIS OFFICE ---CALL FOR APPOINTMENT CONTINUE HOME MEDICATION NEW PRESCRIPTION GIVEN ELIQUIS 10 MG BY MOUTH TWICE A DAY FOR ON WEEK THEN ELIQUIS 5 MG BY MOUTH TWICE A DAY AFTER THE FIRST WEEK ACTIVITY TOLERATED AD PER FACILITY PROTOCOL CALL DR CARDENAS FOR FURTHER ORDERS Referrals: Fredy Cardenas MD [Staff Provider] - Juma Pak Jr., MD [Staff Provider] -
== END 2017-12-15 17:24 | DRG 300 ==
LOC: C.ER 08:30 → C.9E 11:03 → C.3T 12:01 → C.9E 12:04 → C.5S 16:18 → C.9I 12-13 16:19 → C.5S 12-14 22:06
PROVIDERS: ADMIT Internal Medicine; ATTEND Internal Medicine
DX: I82.402 Acute embolism and thrombosis of unspecified deep veins of left lower extremity (principal); I74.5 Embolism and thrombosis of iliac artery; I96 Gangrene, not elsewhere classified; H26.9 Unspecified cataract; L97.509 Non-pressure chronic ulcer of other part of unspecified foot with unspecified severity; I10 Essential (primary) hypertension; R53.83 Other fatigue; Z79.01 Long term (current) use of anticoagulants; Z79.82 Long term (current) use of aspirin; Z89.512 Acquired absence of left leg below knee